=== PATIENT | male | born 1955 | race Caucasian/White ===

== ENCOUNTER 2020-09-19 12:46 | Outpatient (REF) | payer MEDICARE, MEDICAID, SELFPAY | END 2020-09-19 12:47 | disposition home or self-care (01) | LOC: HO.LAB 12:46 | PROVIDERS: Visit Provider Internal Medicine | DX: Z20.828 Contact with and (suspected) exposure to other viral communicable diseases (principal) | CPT/HCPCS: U0003 ==

== ENCOUNTER 2020-09-25 09:55 | Outpatient (REF) | payer MEDICARE, MEDICAID, SELFPAY | END 2020-09-25 09:56 | disposition home or self-care (01) | LOC: HO.LAB 09:55 | PROVIDERS: Visit Provider Internal Medicine | DX: Z20.828 Contact with and (suspected) exposure to other viral communicable diseases (principal) | CPT/HCPCS: C9803; U0003 ==

== ENCOUNTER 2020-10-08 14:48 | Outpatient (REF) | payer MEDICARE, MEDICAID, SELFPAY | END 2020-10-08 14:49 | disposition home or self-care (01) | LOC: HO.LAB 14:48 | PROVIDERS: PCP Internal Medicine; Visit Provider Internal Medicine | DX: Z20.828 Contact with and (suspected) exposure to other viral communicable diseases (principal) | CPT/HCPCS: C9803; U0003 ==

== ENCOUNTER 2020-10-13 14:34 | Outpatient (REF) | payer MEDICARE, MEDICAID, SELFPAY ==
[2020-10-13 16:01] LABS: MANUAL DIFF FLAG NO
[2020-10-13 16:07] LABS: Basophils Absolute Auto 0.1 X10*3/uL (0.0-0.2); Basophils Percent Auto 0.8 % (0-2); Eosinophils Absolute Auto 0.2 X10*3/uL (0.0-0.4); Eosinophils Percent Auto 2.7 % (0-4); Hematocrit 27.2 % (42-52); Hemoglobin 7.6 g/dl (14.0-18.0); Imm Gran Abs Auto 0.02 X10*3/uL (0.00-0.03); Imm Gran Pct Auto 0.3 % (0.0-0.4); Lymphocytes Absolute Auto 2.1 X10*3/uL (1.2-4.9); Lymphocytes Percent Auto 27.7 % (20-40); Mean Corpuscular HGB Conc 27.9 g/dl (31.0-36.0); Mean Corpuscular Volume 78.6 fL (80-98); Monocytes Absolute Auto 0.7 X10*3/uL (0.1-1.2); Monocytes Percent Auto 9.4 % (2-11); Neutrophils Absolute Auto 4.5 X10*3/uL (2.0-8.3); Neutrophils Percent Auto 59.1 % (45-73); Platelet Count 394 X10*3/uL (160-400); Red Blood Count 3.46 X10*6/uL (4.60-5.80); Red Cell Distribution Width 17.2 % (11.0-16.0); White Blood Count 7.7 X10*3/uL (4.8-10.8)
== END 2020-10-13 14:35 | disposition home or self-care (01) ==
LOC: HO.LAB 14:34
PROVIDERS: PCP Internal Medicine; Visit Provider Physician Assistant
DX: D64.9 Anemia, unspecified (principal)
CPT/HCPCS: 36415; 85025

== ENCOUNTER 2020-10-23 16:21 | Outpatient (REF) | payer MEDICARE, MEDICAID, SELFPAY | END 2020-10-23 16:22 | disposition home or self-care (01) | LOC: HO.LAB 16:21 | PROVIDERS: Visit Provider Internal Medicine | DX: Z20.828 Contact with and (suspected) exposure to other viral communicable diseases (principal) | CPT/HCPCS: C9803; U0003 ==

== ENCOUNTER 2020-10-31 08:50 | Outpatient (REF) | payer MEDICARE, MEDICAID, SELFPAY ==
[2020-10-31 09:53] LABS: Basophils Absolute Auto 0.1 X10*3/uL (0.0-0.2); Basophils Percent Auto 0.8 % (0-2); Eosinophils Absolute Auto 0.2 X10*3/uL (0.0-0.4); Hemoglobin 8.2 g/dl (14.0-18.0); MANUAL DIFF FLAG SCAN; Mean Corpuscular Hemoglobin 21.6 pg (27.0-33.0); Red Cell Distribution Width 16.7 % (11.0-16.0); SCAN SMEAR FLAG 1
[2020-10-31 09:56] LABS: Eosinophils Percent Auto 2.3 % (0-4); Hematocrit 29.1 % (42-52); Imm Gran Abs Auto 0.02 X10*3/uL (0.00-0.03); Imm Gran Pct Auto 0.3 % (0.0-0.4); Lymphocytes Absolute Auto 1.8 X10*3/uL (1.2-4.9); Lymphocytes Percent Auto 28.6 % (20-40); Mean Corpuscular HGB Conc 28.2 g/dl (31.0-36.0); Mean Corpuscular Volume 76.6 fL (80-98); Monocytes Absolute Auto 0.7 X10*3/uL (0.1-1.2); Monocytes Percent Auto 10.9 % (2-11); Neutrophils Absolute Auto 3.7 X10*3/uL (2.0-8.3); Neutrophils Percent Auto 57.1 % (45-73); PLT CLUMP 1
[2020-10-31 10:20] LABS: PLT ABN DIST 1
[2020-10-31 10:21] LABS: White Blood Count 6.4 X10*3/uL (4.8-10.8)
[2020-10-31 10:22] LABS: Alanine Aminotransferase 6 U/L (0-40); Aspartate Amino Transferase 13 U/L (5-37); Blood Urea Nitrogen 11 mg/dL (9-16); Estimated Glomerular Filt Rate > 60; Iron 18 mcg/dL (45-160); Lactate Dehydrogenase 130 U/L (118-273); Percent Iron Saturation 4 % (15-50); Platelet Count 180 X10*3/uL (160-400); SLIDE REVIEW VERIFIED; Total Iron Binding Capacity 491 mcg/dL (228-428); Unsaturated Iron Binding 473 ug/dL
== END 2020-10-31 08:51 | disposition home or self-care (01) ==
LOC: HO.LAB 08:50
PROVIDERS: PCP Internal Medicine; Visit Provider Internal Medicine
DX: D64.9 Anemia, unspecified (principal)
CPT/HCPCS: 36415; 82565; 83540; 83615; 84450; 84460; 84520; 85025

== ENCOUNTER → 2020-11-05 11:54 | Outpatient (BNVA) | payer MEDICARE, MEDICAID, SELFPAY | PROVIDERS: Visit Provider Physician Assistant | DX: Z13.89 Encounter for screening for other disorder (principal) | CPT/HCPCS: Q3014 ==

== ENCOUNTER → 2020-12-01 08:02 | Outpatient (BNVA) | payer MEDICARE, MEDICAID, SELFPAY | PROVIDERS: PCP Internal Medicine; Visit Provider Internal Medicine Gastroenterology | DX: D50.9 Iron deficiency anemia, unspecified (principal) | CPT/HCPCS: 91110 ==

== ENCOUNTER 2020-12-03 16:20 | Outpatient (REF) | payer MEDICARE, MEDICAID, SELFPAY | END 2020-12-03 16:21 | disposition home or self-care (01) | LOC: HO.LAB 16:20 | PROVIDERS: Visit Provider Internal Medicine | DX: Z20.822 Contact with and (suspected) exposure to COVID-19 (principal) | CPT/HCPCS: 36415; C9803; U0003 ==

== ENCOUNTER → 2020-12-10 11:58 | Outpatient (BNVA) | payer MEDICARE, MEDICAID, SELFPAY | PROVIDERS: PCP Internal Medicine; Visit Provider Physician Assistant | DX: D64.9 Anemia, unspecified (principal); K21.9 Gastro-esophageal reflux disease without esophagitis | CPT/HCPCS: Q3014 ==

== ENCOUNTER → 2020-12-15 09:00 | Outpatient (BNVA) | payer MEDICARE, MEDICAID, SELFPAY | PROVIDERS: Visit Provider Urology | DX: N50.811 Right testicular pain (principal); N50.812 Left testicular pain | CPT/HCPCS: 51798; 81002; 99212 ==

== ENCOUNTER 2020-12-23 12:49 | Outpatient (REF) | payer MEDICARE, MEDICAID, SELFPAY ==
--- NOTE | 2020-12-23 12:51 | US_ITS ---
EXAMINATION: US SCROTUM CLINICAL INFORMATION: Pain. COMPARISON: None TECHNIQUE: A sonogram of the scrotum was performed assessing larry-scale appearance and color Doppler flow. Spectral Doppler analysis of the arterial and venous flow were performed in the testes bilaterally. FINDINGS: RIGHT: Right testicle measures 3.8 x 1.7 x 2.8 cm, volume 9.4 mL. No focal testicular parenchymal lesions are visualized. Spectral Doppler analysis of the arterial and venous flow is normal in the right testis. Right epididymal head is normal in size. There are multiple right epididymal cysts, largest measuring 9 x 6 x 9 mm No right hydrocele or varicocele is seen. Right epididymal Doppler flow is normal. LEFT: Left testicle measures 3.8 x 1.9 x 2.8 cm, volume 10.4 mL. No focal testicular parenchymal lesions are visualized. Spectral Doppler analysis of the arterial and venous flow is normal in the left testis. Left epididymal head is normal in size. There are multiple left epididymal cysts, largest measuring 5 x 3 x 4 mm. No left hydrocele or varicocele is seen. Left epididymal Doppler flow is normal. US/US scrotum IMPRESSION: Bilateral small epididymal cysts.
== END 2020-12-23 12:50 | disposition home or self-care (01) ==
LOC: HO.US 12:49
PROVIDERS: PCP Internal Medicine; Visit Provider Urology
DX: N50.819 Testicular pain, unspecified (principal)
CPT/HCPCS: 76870

== ENCOUNTER 2020-12-25 10:58 | Outpatient (REF) | payer MEDICARE, MEDICAID, SELFPAY | END 2020-12-25 10:59 | disposition home or self-care (01) | LOC: HO.MDS 10:58 | PROVIDERS: PCP Internal Medicine; Visit Provider Internal Medicine Medical Oncology | DX: D50.9 Iron deficiency anemia, unspecified (principal) | CPT/HCPCS: 96365; J2916 ==

== ENCOUNTER 2020-12-30 11:29 | Outpatient (REF) | payer MEDICARE, MEDICAID, SELFPAY | END 2020-12-30 11:30 | disposition home or self-care (01) | LOC: HO.MDS 11:29 | PROVIDERS: PCP Internal Medicine; Visit Provider Internal Medicine Medical Oncology | DX: D50.9 Iron deficiency anemia, unspecified (principal) | CPT/HCPCS: 96365; J2916 ==

== ENCOUNTER 2021-01-01 12:45 | Day surgery (SDC) | payer MEDICARE, MEDICAID, SELFPAY ==
[2020-12-26 14:01] VITALS: BMI 30.7
--- NOTE | 2020-12-31 08:49 | HO.ANESPROP2 ---
Documented by User: Pinky Torres 12/31/20 08:49 HPI - Anesthesia Eval Consult details Narrative: 65yo M for Colonoscopy with APC PMFSH Active Problems Active Problems: All Active Problems (Updated 12/26/20 @ 13:58 by Shanta Rios) Microcytic hypochromic anemia (Acute) Orchalgia (Acute) Anemia (Acute) Post-op pain (Acute) Smoker (Acute) Insomnia (Acute) GERD (gastroesophageal reflux disease) (Acute) Diverticulosis (Acute) Anxiety (Acute) Past Medical History Medical History Anemia Anxiety Diverticulosis GERD (gastroesophageal reflux disease) Hx of hepatitis C Insomnia Orchalgia Post-op pain Smoker Family History Family History Father Prostate cancer Mother Colon cancer Brother Prostate cancer Family/Other FH: mental illness Sister Chronic mental illness Surgical History Surgical History H/O hand surgery History of back surgery History of esophagogastroduodenoscopy (EGD) History of mandibular surgery History of repair of laceration History of sinus surgery Hx of colonoscopy Social History Social History Alcohol intake: former Smoking Status: Current every day smoker Tobacco Type: Cigarette Cigarettes Per Day: 2 Years Smoked: 15 Use of substances other than those prescribed or required for medical reasons: No Advance Directives: No Advance Directives Information Provided: No Advance Directives on File: No Meds Allergies Allergy/AdvReac Type Severity Reaction Status Date / Time codeine [CODEINE] Allergy Intermediate nausea Verified 12/26/20 13:59 trazodone [TRAZODONE] Allergy Intermediate SHORTNESS Verified 12/26/20 14:00 OF BREATH lactose [LACTOSE] AdvReac Intermediate upset Verified 12/26/20 14:00 stomach Home Medications Medication Instructions Recorded Confirmed Last Taken Type omeprazole 20 mg capsule,delayed 40 mg PO DAILY cap 09/01/20 12/26/20 Unknown History release Exam Exam Date and Time: December 31, 2020 0849 Height,Weight and Vital Signs: Height 5 ft 6 in Weight 86.183 kg Assessment and Plan Assessment Anesthesia Assessment: Chart Reviewed Documented by User: Julio Vicente 01/01/21 12:54 PMFSH Past Medical History Medical History Anemia Anxiety Diverticulosis GERD (gastroesophageal reflux disease) Hx of hepatitis C Insomnia Orchalgia Post-op pain Smoker Family History Family History Father Prostate cancer Mother Colon cancer Brother Prostate cancer Family/Other FH: mental illness Sister Chronic mental illness Surgical History Surgical History H/O hand surgery History of back surgery History of esophagogastroduodenoscopy (EGD) History of mandibular surgery History of repair of laceration History of sinus surgery Hx of colonoscopy Social History Social History Alcohol intake: former Smoking Status: Current every day smoker Tobacco Type: Cigarette Cigarettes Per Day: 2 Years Smoked: 15 Use of substances other than those prescribed or required for medical reasons: No Advance Directives: No Advance Directives Information Provided: No Advance Directives on File: No Meds Allergies Allergy/AdvReac Type Severity Reaction Status Date / Time codeine [CODEINE] Allergy Intermediate nausea Verified 12/26/20 13:59 trazodone [TRAZODONE] Allergy Intermediate SHORTNESS Verified 12/26/20 14:00 OF BREATH lactose [LACTOSE] AdvReac Intermediate upset Verified 12/26/20 14:00 stomach Home Medications Medication Instructions Recorded Confirmed Last Taken Type omeprazole 20 mg capsule,delayed 40 mg PO DAILY cap 09/01/20 12/26/20 Unknown History release Exam Airway Mallampati Class: II TM Dist: >3cm Neck ROM: Full
[2021-01-01 12:55] VITALS: BP 145/85; PULSE 94; RESP 18; TEMP 37.2; O2SAT 96
--- NOTE | 2021-01-01 13:09 | MHC.SHP ---
Pre-Procedural Eval Section B Chief Complaint: anemia Details of Present Illness: avm on capsule Relevant Family History (Specify if Yes): No Relevant Social History: Tobacco Use Present Medications: see Short Stay Collaborative assessment Medical History: Significant History (Anemia Anxiety Diverticulosis GERD (gastroesophageal reflux disease) Hx of hepatitis C Insomnia Orchalgia Post-op pain Smoker) History of Previous Operations: Relevant previous surgery/procedure and date(s) (H/O hand surgery History of back surgery History of esophagogastroduodenoscopy (EGD) History of mandibular surgery History of repair of laceration History of sinus surgery Hx of colonoscopy) Allergies: Allergies Allergy/AdvReac Type Severity Reaction Status Date / Time codeine [CODEINE] Allergy Intermediate nausea Verified 12/26/20 13:59 trazodone [TRAZODONE] Allergy Intermediate SHORTNESS Verified 12/26/20 14:00 OF BREATH lactose [LACTOSE] AdvReac Intermediate upset Verified 12/26/20 14:00 stomach Review of Systems Sugical H&P ROS: Negative: Constitution, Cardiovascular, Respiratory, Neurological, Psychiatric, Hem-Onc, Allergic/Immunologic, Gastrointestinal, Genitourinary, Musculoskeletal, Integumentary, Endocrine and Eyes/Ears/Nose/Throat Exam Surgical H&P Exam: Normal: HEENT, Normal: Heart, Normal: Lungs, Normal: Extremities, Normal: Abdomen, Normal: Skin and Normal: Neurological Plan Diagnosis/Plan: Unchanged I have reviewed the history and physical and performed a pertinent physical examination on my patient. No changes have occurred unless specified.
[2021-01-01] MEDS: Lactated Ringers 1,000 ML 100 ML IVCONT (13:22)
--- NOTE | 2021-01-01 13:28 | PM.OP ---
Brief Operative Note Date of Service: 01/01/21 Pre-op diagnosis: avm, anemia Post-op diagnosis: same Procedure: see op note Surgeon: Harjeet Nguyen MD Anesthesia: MAC Estimated blood loss (mL): 0 Condition: stable Disposition: PACU
--- NOTE | 2021-01-01 14:05 | P.OP_ITS ---
Operative Note Operative Note Date of Service: 01/01/21 Narrative: Operative Information Procedure Description: Colonoscopy c/o LLQ pain and hx of anemia COLONOSCOPY Instrument: Olympus variable stiffness pediatric scope 190L Colonoscopy Monitoring: Vital signs and clinical assessment, continuous EKG monitoring, Pulse oximetry, Carbon Dioxide monitoring and blood pressure monitoring were done throughout the procedure. Colon withdrawal time was 15 minutes. Procedure: The patient was placed in the left lateral decubitis position and pre-procedure medications were administered. After a digital rectal examination of the ano-rectum, the video colonoscope was inserted into the rectum and advanced through the colon to the cecum/TI. The colonoscope was slowly withdrawn in a retrograde panoramic fashion and the colon mucosa was carefully examined including a retroflexed view of the rectum. Findings and interventions are described below. Procedure Difficulty: easy Findings: Pigmented mucosa, consistent with melanosis coli, random bx taken of colon Terminal Ileum-normal, bx taken Cecum:normal Ascending Colon: normal, AVM seen on prior capsule endoscopy study noted, measured about 9-10 mm, bled when irritated, it was successfully ablated using straight fire APC Transverse Colon -8-10 mm sessile polyp removed wt snare Descending Colon:normal Sigmoid Colon: moderate diverticulosis with tics of varying sizes Rectum: Retroflexion with small sized internal hemorrhoids, grade I Anorectum - normal Colon preparation: [address] Bowel Preparation Scale Right colon; 2 Transverse colon: 2 Left colon; 2 (0 = Unprepared colon segment with mucosa not seen due to solid stool that cannot be cleared. 1 = Portion of mucosa of the colon segment seen, but other areas of the colon segment not well seen due to staining, residual stool and/or opaque liquid. 2 = Minor amount of residual staining, small fragments of stool and/or opaque liquid, but mucosa of colon segment seen well. 3 = Entire mucosa of colon segment seen well with no residual staining, small fragments of stool or opaque liquid) Impression and Post Procedure Diagnosis: polyps internal hemorrhoids diverticular disease AVM melanosis coli Plan: High fiber diet leaflet Avoid straining at stool, epsom salts and sitz bath, anusol supps or cream Repeat Colonoscopy in 3-5 years or earlier if clinically indicated confirm if taking sennosides or not if pain persists then CT scan, maybe GES due to some early satiety, for the moment try the high fiber diet with plenty of fluids during the day time Above findings were reviewed with the patient and relevant handouts were provided if indicated.
[2021-01-01 14:15] VITALS: BP 104/59; PULSE 80; RESP 20; TEMP 37; O2SAT 98
[2021-01-01 14:30] VITALS: BP 134/74; PULSE 97; RESP 20; TEMP 37; O2SAT 96
--- NOTE | 2021-01-01 17:40 | HO.POSTANES ---
Post Anesthesia Evaluation Post Anesthesia Evaluation Vital Signs: Vital Signs Temp Pulse Resp BP Pulse Ox 01/01/21 14:30 98.6 F 97 20 134/74 96 01/01/21 14:15 98.6 F 80 20 104/59 L 98 01/01/21 12:55 99.0 F 94 18 145/85 H 96 Anesthesia: Monitored Mental Status: Awake Pain Control: Satisfactory Nausea/Vomiting: None Hydration: Adequate Anesthesia-Related Issues: No Anes. Related Issues
== END 2021-01-01 15:00 | disposition home or self-care (01) ==
PROVIDERS: PCP Internal Medicine; Visit Provider Internal Medicine Gastroenterology
PROC: 0DJD8ZZ Inspection of Lower Intestinal Tract, Via Natural or Artificial Opening Endoscopic (ICD-10-PCS; CPT 45378; principal; 2021-01-01 13:50)
DX: D64.9 Anemia, unspecified (principal); Z86.010 Personal history of colon polyps; D12.3 Benign neoplasm of transverse colon; K55.20 Angiodysplasia of colon without hemorrhage; K57.30 Diverticulosis of large intestine without perforation or abscess without bleeding; K64.0 First degree hemorrhoids; K63.89 Other specified diseases of intestine; K21.9 Gastro-esophageal reflux disease without esophagitis; Z79.899 Other long term (current) drug therapy; Z86.19 Personal history of other infectious and parasitic diseases; F17.210 Nicotine dependence, cigarettes, uncomplicated
CPT/HCPCS: 45385; 45380; 88305

== ENCOUNTER → 2021-01-02 13:12 | Outpatient (BNVA) | payer MEDICARE, MEDICAID, SELFPAY | PROVIDERS: Visit Provider Urology | CPT/HCPCS: Q3014 ==

== ENCOUNTER 2021-01-09 10:09 | Outpatient (REF) | payer MEDICARE, MEDICAID, SELFPAY | END 2021-01-09 10:10 | disposition home or self-care (01) | LOC: HO.MDS 10:09 | PROVIDERS: PCP Internal Medicine; Visit Provider Internal Medicine Medical Oncology | DX: D50.9 Iron deficiency anemia, unspecified (principal) | CPT/HCPCS: 96365; J2916 ==

== ENCOUNTER 2021-01-14 11:23 | Outpatient (REF) | payer MEDICARE, MEDICAID, SELFPAY ==
--- NOTE | ~2021-01-14 | CT_ITS ---
EXAMINATION: CT ABDOMEN AND PELVIS WITH CONTRAST CLINICAL INFORMATION: Iron deficiency anemia COMPARISON: None TECHNIQUE: Multidetector volumetric images were obtained from the superior aspect of the liver through the pubic symphysis following administration 85 mL of Omnipaque 350 intravenous contrast. Sagittal and coronal reformatted images were obtained on the technologist's workstation. Oral contrast: Yes This CT examination was performed using dose optimization techniques as appropriate, variously including the following: *Automated exposure control *Adjustment of mA and/or kV according to patient size (this includes techniques or standardized protocols for targeted exams where dose is matched to indication/reason for exam; i.e. extremities or head) *Use of iterative reconstruction technique DLP: 418 mGy-cm FINDINGS: LUNG BASES: The visualized lung bases are unremarkable. LIVER, GALLBLADDER, AND BILIARY TREE: The liver is normal in size, shape, and attenuation. No focal hepatic lesion or biliary ductal dilatation is present. The gallbladder is unremarkable with no evidence of radiopaque gallstones, gallbladder wall thickening, or obvious pericholecystic inflammatory changes. PANCREAS: Unremarkable. SPLEEN: Unremarkable. ADRENAL GLANDS: Unremarkable. KIDNEYS AND URETERS: The kidneys are normal in size, shape, and attenuation. No hydronephrosis, hydroureter, or calculi seen. There is a small cyst in the medial upper pole of the right kidney measuring 5 mm. No perinephric stranding. BLADDER: Unremarkable. GASTROINTESTINAL TRACT: There is diverticulosis of the colon. Small and large bowel is otherwise unremarkable. There is a large esophageal hernia. There is question of wall thickening versus underdistention of the proximal stomach. ABDOMINAL WALL: No significant hernia is appreciated. LYMPH NODES: Normal. VASCULAR: There is evidence of atherosclerotic disease. No aneurysm is seen. PELVIC VISCERA: Unremarkable. OSSEOUS STRUCTURES: There is postsurgical change in the lower lumbar spine with posterior fusion hardware in disc interspace. There is degenerative disc disease of the upper lumbar spine. CT/CT abdomen pelvis w con IMPRESSION: Diverticulosis of the colon. Large esophageal hernia. Question wall thickening versus underdistention of the proximal stomach.
[2021-01-14 12:16] LABS: Blood Urea Nitrogen 9 mg/dL (9-16); Estimated Glomerular Filt Rate > 60
[2021-01-14] MEDS: iohexoL 350 MG/ML 100 ML INFUS..BTL 85 ML IV (14:24)
[2021-01-14] MEDS: Barium Sulfate Oral (Mocha) 450 ML ORAL.SUSP 900 ML PO (14:25)
== END 2021-01-14 11:24 | disposition home or self-care (01) ==
LOC: HO.CT 11:23
PROVIDERS: Visit Provider Internal Medicine Gastroenterology
DX: D50.9 Iron deficiency anemia, unspecified (principal)
CPT/HCPCS: 36415; 74177; 82565; 84520; Q9967

== ENCOUNTER 2021-01-16 12:49 | Outpatient (REF) | payer MEDICARE, MEDICAID, SELFPAY | END 2021-01-16 12:50 | disposition home or self-care (01) | LOC: HO.MDS 12:49 | PROVIDERS: PCP Internal Medicine; Visit Provider Internal Medicine Medical Oncology | DX: D50.9 Iron deficiency anemia, unspecified (principal) | CPT/HCPCS: 96365 ==

== ENCOUNTER 2021-01-20 10:44 | Outpatient (REF) | payer MEDICARE, MEDICAID, SELFPAY | END 2021-01-20 10:45 | disposition home or self-care (01) | LOC: HO.MDS 10:44 | PROVIDERS: PCP Internal Medicine; Visit Provider Internal Medicine Medical Oncology | DX: D50.9 Iron deficiency anemia, unspecified (principal) | CPT/HCPCS: 96365; J2916 ==

== ENCOUNTER 2021-01-27 11:11 | Outpatient (REF) | payer MEDICARE, MEDICAID, SELFPAY ==
[2021-01-27 13:13] LABS: Hematocrit 37.3 % (42-52); Hemoglobin 10.9 g/dl (14.0-18.0); Mean Corpuscular HGB Conc 29.2 g/dl (31.0-36.0); Mean Corpuscular Hemoglobin 23.8 pg (27.0-33.0); Mean Corpuscular Volume 81.4 fL (80-98); Platelet Count 169 X10*3/uL (160-400); Red Blood Count 4.58 X10*6/uL (4.60-5.80); Red Cell Distribution Width 23.9 % (11.0-16.0); White Blood Count 5.6 X10*3/uL (4.8-10.8)
[2021-01-27 13:56] LABS: Alanine Aminotransferase 16 U/L (0-40); Albumin Level 4.4 g/dL (3.5-5.0); Alkaline Phosphatase 56 U/L (39-117); Aspartate Amino Transferase 21 U/L (5-37); Bilirubin Total 0.3 mg/dL (0.0-1.0); Blood Urea Nitrogen 9 mg/dL (9-16); Calcium 9.1 mg/dL (8.4-10.2); Estimated Glomerular Filt Rate > 60; Glucose Random 79 mg/dL (60-115)
[2021-01-27 14:07] LABS: Anion Gap 11 (12-20); Carbon Dioxide 27 mmol/L (22-29); Chloride 107 mmol/L (96-108); Potassium 4.1 mmol/L (3.3-5.1); Sodium 141 mmol/L (135-145)
[2021-01-27 14:20] LABS: Prostate Specific Antigen Scr 0.16 ng/mL (<0.05-4.0)
[2021-01-27 14:34] LABS: Ferritin 49 ng/mL (20-250)
== END 2021-01-27 11:12 | disposition home or self-care (01) ==
LOC: HO.MDS 11:11
PROVIDERS: PCP Internal Medicine; Visit Provider Internal Medicine Medical Oncology
DX: D50.9 Iron deficiency anemia, unspecified (principal)
CPT/HCPCS: 36415; 80053; 82728; 84153; 85027; 96365; J2916

== ENCOUNTER 2021-02-03 11:27 | Outpatient (REF) | payer MEDICARE, MEDICAID, SELFPAY | END 2021-02-03 11:28 | disposition home or self-care (01) | LOC: HO.MDS 11:27 | PROVIDERS: PCP Internal Medicine; Visit Provider Internal Medicine Medical Oncology | DX: D50.9 Iron deficiency anemia, unspecified (principal) | CPT/HCPCS: 96365; J2916 ==

== ENCOUNTER 2021-02-10 10:44 | Outpatient (REF) | payer MEDICARE, MEDICAID, SELFPAY | END 2021-02-10 10:45 | disposition home or self-care (01) | LOC: HO.MDS 10:44 | PROVIDERS: PCP Internal Medicine; Visit Provider Internal Medicine Medical Oncology | DX: D50.9 Iron deficiency anemia, unspecified (principal) | CPT/HCPCS: 96365; J2916 ==

== ENCOUNTER → 2021-02-11 13:28 | Outpatient (BNVA) | payer MEDICARE, MEDICAID, SELFPAY | PROVIDERS: Visit Provider Urology | DX: N50.3 Cyst of epididymis (principal) | CPT/HCPCS: 99212 ==

== ENCOUNTER 2021-02-23 08:32 | Day surgery (SDC) | payer MEDICARE, MEDICAID, SELFPAY ==
--- NOTE | 2021-02-20 11:37 | HO.ANESPROP2 ---
Documented by User: Pinky Torres 02/20/21 11:39 HPI - Anesthesia Eval Consult details Narrative: 65yo M for Excision of Penile Cyst PMFSH Active Problems Active Problems: All Active Problems (Updated 02/11/21 @ 14:17 by Zach Perez MD) Microcytic hypochromic anemia (Acute) Epididymal cyst (Acute) Esophageal hernia (Acute) Orchalgia (Acute) Anemia (Acute) Post-op pain (Acute) Smoker (Acute) Insomnia (Acute) GERD (gastroesophageal reflux disease) (Acute) Diverticulosis (Acute) Anxiety (Acute) Past Medical History Medical History Anemia Anxiety Diverticulosis Esophageal hernia GERD (gastroesophageal reflux disease) Hx of hepatitis C Insomnia Orchalgia Post-op pain Smoker Family History Family History Father Prostate cancer Mother Colon cancer Brother Prostate cancer Family/Other FH: mental illness Sister Chronic mental illness Surgical History Surgical History H/O hand surgery History of back surgery History of esophagogastroduodenoscopy (EGD) History of mandibular surgery History of repair of laceration History of sinus surgery Hx of colonoscopy Social History Social History Alcohol intake: former Smoking Status: Current every day smoker Tobacco Type: Cigarette Cigarettes Per Day: 1 Years Smoked: 15 Use of substances other than those prescribed or required for medical reasons: No Advance Directives: No Advance Directives Information Provided: Yes Meds Allergies Allergy/AdvReac Type Severity Reaction Status Date / Time codeine [CODEINE] Allergy Intermediate nausea Verified 02/23/21 09:10 trazodone [TRAZODONE] Allergy Intermediate SHORTNESS Verified 02/23/21 09:10 OF BREATH lactose [LACTOSE] AdvReac Intermediate upset Verified 02/23/21 09:10 stomach Home Medications Medication Instructions Recorded Confirmed Last Taken Type omeprazole 20 mg capsule,delayed 40 mg PO DAILY cap 09/01/20 02/17/21 Unknown History release baclofen 20 mg tablet mg PO 02/11/21 Unknown History gabapentin 600 mg tablet 600 mg PO TID 02/11/21 02/17/21 Unknown History mirtazapine 30 mg tablet 30 mg PO BEDTIME 02/11/21 02/17/21 Unknown History Exam Exam Date and Time: February 20, 2021 1137 Pertinent Lab Results Pertinent Lab Results: Laboratory Tests 01/27/21 01/27/21 13:02 13:02 WBC 5.6 Hgb 10.9 L D Hct 37.3 L D Plt Count 169 Sodium 141 Potassium 4.1 Chloride 107 Carbon Dioxide 27 BUN 9 Creatinine 0.80 Assessment and Plan Assessment Anesthesia Assessment: Chart Reviewed Documented by User: Chayito Lerner 02/23/21 11:23 PMFSH Past Medical History Medical History Anemia Anxiety Diverticulosis Esophageal hernia GERD (gastroesophageal reflux disease) Hx of hepatitis C Insomnia Orchalgia Post-op pain Smoker Family History Family History Father Prostate cancer Mother Colon cancer Brother Prostate cancer Family/Other FH: mental illness Sister Chronic mental illness Surgical History Surgical History H/O hand surgery History of back surgery History of esophagogastroduodenoscopy (EGD) History of mandibular surgery History of repair of laceration History of sinus surgery Hx of colonoscopy Social History Social History Alcohol intake: former Smoking Status: Current every day smoker Tobacco Type: Cigarette Cigarettes Per Day: 1 Years Smoked: 15 Use of substances other than those prescribed or required for medical reasons: No Advance Directives: No Advance Directives Information Provided: Yes Meds Allergies Allergy/AdvReac Type Severity Reaction Status Date / Time codeine [CODEINE] Allergy Intermediate nausea Verified 02/23/21 09:10 trazodone [TRAZODONE] Allergy Intermediate SHORTNESS Verified 02/23/21 09:10 OF BREATH lactose [LACTOSE] AdvReac Intermediate upset Verified 02/23/21 09:10 stomach Home Medications Medication Instructions Recorded Confirmed Last Taken Type omeprazole 20 mg capsule,delayed 40 mg PO DAILY cap 09/01/20 02/17/21 Unknown History release baclofen 20 mg tablet mg PO 02/11/21 Unknown History gabapentin 600 mg tablet 600 mg PO TID 02/11/21 02/17/21 Unknown History mirtazapine 30 mg tablet 30 mg PO BEDTIME 02/11/21 02/17/21 Unknown History Exam Airway Mallampati Class: II TM Dist: >3cm Neck ROM: Full Assessment and Plan Assessment Anesthesia Assessment: Anesthesia Plan Discussed and Chart Reviewed Final Anesthetic Review NPO: Yes ASA Class: II Final Preanesthetic Review: No Changes in Pt Med Stat, Meds/Allgs Chart Reviewed, Consent Obtained/Reviewed and Anes Risks/Benef Reviewed Patient Risk: Low Procedure Risk: Low Assessment/Block/Sedation in SS: Assess/Block/Sedation-SS Anesthetic Plan Anesthetic Plan: GA Disposition: Standard PACU
[2021-02-23] VITALS (8 sets, daily range): BP systolic 132–184; BP diastolic 75–97; PULSE 64–91; RESP 16–18; TEMP 36.6–36.9; O2SAT 95–98; BMI 29.8
[2021-02-23] MEDS: Lactated Ringers 1,000 ML 100 ML IVCONT (09:52)
[2021-02-23] MEDS: levoFLOXacin 500 MG TABLET PO (10:24)
--- NOTE | 2021-02-23 10:25 | MHC.SHP ---
Pre-Procedural Eval Section A The patient is an INPATIENT: No Changes since office visit: No Cold of Flu in the past 2 weeks, No New Medical Problems, No Changes in Medication and No Patient answered all questions The History & Physical has been completed within 30 days and I have reviewed it.: Yes Section B Chief Complaint: cyst Allergies: Allergies Allergy/AdvReac Type Severity Reaction Status Date / Time codeine [CODEINE] Allergy Intermediate nausea Verified 02/23/21 09:10 trazodone [TRAZODONE] Allergy Intermediate SHORTNESS Verified 02/23/21 09:10 OF BREATH lactose [LACTOSE] AdvReac Intermediate upset Verified 02/23/21 09:10 stomach Plan Diagnosis/Plan: Unchanged (Excision of right epididymal cyst) I have reviewed the history and physical and performed a pertinent physical examination on my patient. No changes have occurred unless specified.
--- NOTE | 2021-02-23 10:25 | PC.NURSE ---
pt has lactose allergy states bloating when drinks reg. milk now uses almond milk mostly... per Lonnie the pharmacist states there is a lactose basket filler levaquin states with a bloating isssue he should be ok to take this one dose at this time but need to review with Dr Perez. informed Dr Perez of issue, ok to give the dose of levaquin at this time. pt informed of lactose basket filler levaguin and medication given.
--- NOTE | 2021-02-23 12:11 | W.PM.OPN ---
Operative Note Operative Note Date of Service: 02/23/21 Narrative: PreOperative Diagnosis: Right epididymal cyst Post Operative Diagnosis: Right epididymal cyst Procedure: Excision right epididymal cyst Surgeon: Dr Zach Perez Anesthesia: General Indications for procedure: Right epididymal cyst with persistent pain. Discussed cyst removal. Is aware that removal cyst may not resolve pain on testicle. Procedure: After informed consent was verified the patient was brought to the operating room and placed in a supine position. Anesthesia was administered per protocol. The patient was prepped and draped in a sterile fashion. Safety pause time-out performed. Antibiotics have been given. Local anesthetic was used to infiltrate all horizontal aspect of the right testicle. Sharp blade was used to make a 2 cm incision. This was dissected and taken down to the testicle. The testicle was delivered through the incision. The tunica was opened. The testicle and epididymis was delivered. A 1 cm epididymal cyst was present in the here with epididymis. Using the Bovie with the fine needle and sharp dissection with tenotomies cyst was freed from its surrounding fascia. The testicle on epididymal size were then cauterized for control of any bleeding. The epididymis was refill acid onto the testicle using a running 3-0 Vicryl suture with locking ties. The testicle was placed back within the tunica. This was closed with a running 3-0 Vicryl. The packet was then placed back into the scrotum. The overlying tissue was closed with a running 3-0 Vicryl. The skin was closed with interrupted 4-0 Monocryls. He tolerated procedure well was extubated in the operating room transferred in stable condition to the recovery area Pathology: Epididymal cyst Drains: None
[2021-02-23] MEDS: oxyCODONE HCl Immed Release 5 MG TABLET PO (12:15)
[2021-02-23] MEDS: Acetaminophen 325 MG TABLET 650 MG PO (12:16)
[2021-02-23] MEDS: fentaNYL citrate/PF 100 MCG/2 ML VIAL 25 MCG IVPUSH ×2 (12:51→13:27)
== END 2021-02-23 14:46 | disposition home or self-care (01) ==
PROVIDERS: PCP Internal Medicine; Visit Provider Urology
PROC: (CPT 54830; principal; 2021-02-23 11:50)
DX: N50.3 Cyst of epididymis (principal); N50.811 Right testicular pain; Z79.899 Other long term (current) drug therapy; Z88.8 Allergy status to other drugs, medicaments and biological substances; F17.210 Nicotine dependence, cigarettes, uncomplicated
CPT/HCPCS: 54830; 88304; J2405; J3010

== ENCOUNTER 2021-04-03 14:30 | Outpatient (REF) | payer MEDICARE, MEDICAID, SELFPAY ==
--- NOTE | ~2021-04-03 | XR_ITS ---
EXAMINATION: XR HIP, LEFT CLINICAL INFORMATION: Pain left hip COMPARISON: None TECHNIQUE: Two views of the left hip. FINDINGS: The left hip joint space is maintained normal. No visible acute fracture, dislocation or subluxation seen. XR/XR hip LT min 2V IMPRESSION: Unremarkable left hip exam.
== END 2021-04-03 14:31 | disposition home or self-care (01) ==
LOC: HO.XRAY 14:30
PROVIDERS: Absent Provider Internal Medicine; PCP Internal Medicine; Visit Provider Urology
DX: M25.552 Pain in left hip (principal); N52.01 Erectile dysfunction due to arterial insufficiency
CPT/HCPCS: 73502; 81002; 99212

== ENCOUNTER 2021-04-07 10:56 | Outpatient (REF) | payer MEDICARE, MEDICAID, SELFPAY ==
[2021-04-07 13:26] LABS: Hematocrit 40.4 % (42-52)
[2021-04-07 13:28] LABS: Basophils Percent Auto 0.7 % (0-2); Eosinophils Absolute Auto 0.1 X10*3/uL (0.0-0.4); Eosinophils Percent Auto 2.2 % (0-4); Imm Gran Abs Auto 0.01 X10*3/uL (0.00-0.03); Imm Gran Pct Auto 0.2 % (0.0-0.4); Lymphocytes Absolute Auto 1.8 X10*3/uL (1.2-4.9); Lymphocytes Percent Auto 32.5 % (20-40); Mean Corpuscular HGB Conc 32.2 g/dl (31.0-36.0); Mean Corpuscular Hemoglobin 27.9 pg (27.0-33.0); Mean Corpuscular Volume 86.7 fL (80-98); Monocytes Absolute Auto 0.6 X10*3/uL (0.1-1.2); Monocytes Percent Auto 10.6 % (2-11); Neutrophils Percent Auto 53.8 % (45-73); Platelet Count 166 X10*3/uL (160-400); Red Blood Count 4.66 X10*6/uL (4.60-5.80); Red Cell Distribution Width 16.5 % (11.0-16.0); White Blood Count 5.5 X10*3/uL (4.8-10.8)
[2021-04-07 13:58] LABS: Alanine Aminotransferase 15 U/L (0-40); Albumin Level 4.3 g/dL (3.5-5.0); Alkaline Phosphatase 61 U/L (39-117); Anion Gap 12 (12-20); Aspartate Amino Transferase 25 U/L (5-37); Bilirubin Total 0.5 mg/dL (0.0-1.0); Blood Urea Nitrogen 8 mg/dL (9-16); Calcium 9.2 mg/dL (8.4-10.2); Carbon Dioxide 28 mmol/L (22-29); Chloride 105 mmol/L (96-108); Estimated Glomerular Filt Rate > 60; Glucose Random 73 mg/dL (60-115); Potassium 4.4 mmol/L (3.3-5.1); Sodium 141 mmol/L (135-145); Total Protein 7.1 g/dL (6.5-8.0)
[2021-04-07 14:20] LABS: Ferritin 6 ng/mL (20-250)
[2021-04-07 14:25] LABS: Amphetamine Screen Urine Not Detected (Not Detect); Barbiturates, Urine Not Detected (Not Detect); Benzodiazepines Screen Urine Not Detected (Not Detect); Cannabinoid Screen Urine Not Detected (Not Detect); Cocaine Screen Urine Not Detected (Not Detect); Opiate Screen Urine Not Detected (Not Detect); Phencyclidine Screen Urine Not Detected (Not Detect)
== END 2021-04-07 10:57 | disposition home or self-care (01) ==
LOC: HO.LAB 10:56
PROVIDERS: PCP Internal Medicine; Visit Provider Internal Medicine Gastroenterology
DX: D50.9 Iron deficiency anemia, unspecified (principal); K57.90 Diverticulosis of intestine, part unspecified, without perforation or abscess without bleeding; K75.81 Nonalcoholic steatohepatitis (NASH); F17.210 Nicotine dependence, cigarettes, uncomplicated; Z88.8 Allergy status to other drugs, medicaments and biological substances; Z88.6 Allergy status to analgesic agent; Z91.011 Allergy to milk products; Z79.899 Other long term (current) drug therapy
CPT/HCPCS: 80053; 80307; 82728; 85025; 99212

== ENCOUNTER 2021-05-14 09:23 | Outpatient (REF) | payer MEDICARE, MEDICAID, SELFPAY ==
--- NOTE | ~2021-05-14 | XR_ITS ---
EXAMINATION: XR SHOULDER, RIGHT CLINICAL INFORMATION: Pain right shoulder COMPARISON: None TECHNIQUE: AP external rotation, Grashey, scapular Y, and axillary views of the right shoulder. FINDINGS: There is mild loss of right AC joint with periarticular spurring. The glenohumeral joint space is mildly decreased as well. No visible acute fracture, dislocation or subluxation seen. XR/XR shoulder RT min 2V IMPRESSION: Degenerative osteoarthritic changes right AC joint and glenohumeral joint space.
== END 2021-05-14 09:24 | disposition home or self-care (01) ==
LOC: HO.XRAY 09:23
PROVIDERS: PCP Internal Medicine; Visit Provider Internal Medicine
DX: M25.511 Pain in right shoulder (principal)
CPT/HCPCS: 73030

== ENCOUNTER → 2021-06-04 13:28 | Outpatient (BNVA) | payer MEDICARE, MEDICAID, SELFPAY | PROVIDERS: Visit Provider Orthopaedic Surgery | DX: M25.511 Pain in right shoulder (principal); G89.29 Other chronic pain | CPT/HCPCS: 20610; 99202; 99212; J1100 ==

== ENCOUNTER 2021-06-08 12:22 | Outpatient (REF) | payer MEDICARE, MEDICAID, SELFPAY ==
--- NOTE | ~2021-06-08 | US_ITS ---
EXAMINATION: US RETROPERITONEAL LIMITED (RENAL ONLY) CLINICAL INFORMATION: Calculus of kidney. COMPARISON: CT abdomen and pelvis with contrast dated 01/14/2021. TECHNIQUE: Real-time imaging of the kidneys. FINDINGS: RIGHT KIDNEY: 11.8 x 3.9 x 5.0 cm (SAG x AP x TRV). The kidney is normal in size and echogenicity. Renal cortical thickness is normal. No calculi or focal parenchymal lesions. No hydronephrosis. LEFT KIDNEY: 11.1 x 5.9 x 4.7 cm (SAG x AP x TRV). The kidney is normal in size, contour, and echogenicity. Renal cortical thickness is normal. There are 2 3 mm echogenic densities in the upper and midpole with twinkle artifact questionable for small stones. No stone is seen on December 2020 CT scan. No focal parenchymal lesions or hydronephrosis. US/US renal BI IMPRESSION: Question small left renal stones.
[2021-06-08 14:16] LABS: MANUAL DIFF FLAG NO
[2021-06-08 14:21] LABS: Basophils Percent Auto 0.7 % (0-2); Eosinophils Absolute Auto 0.1 X10*3/uL (0.0-0.4); Eosinophils Percent Auto 2.1 % (0-4); Hematocrit 41.4 % (42-52); Hemoglobin 13.5 g/dl (14.0-18.0); Imm Gran Abs Auto 0.01 X10*3/uL (0.00-0.03); Imm Gran Pct Auto 0.2 % (0.0-0.4); Lymphocytes Absolute Auto 1.7 X10*3/uL (1.2-4.9); Mean Corpuscular HGB Conc 32.6 g/dl (31.0-36.0); Mean Corpuscular Hemoglobin 29.2 pg (27.0-33.0); Mean Corpuscular Volume 89.4 fL (80-98); Mean Platelet Volume 12.6 fL (9.4-12.4); Monocytes Absolute Auto 0.6 X10*3/uL (0.1-1.2); Monocytes Percent Auto 9.3 % (2-11); Neutrophils Absolute Auto 3.7 X10*3/uL (2.0-8.3); Neutrophils Percent Auto 59.7 % (45-73); Platelet Count 139 X10*3/uL (160-400); Red Blood Count 4.63 X10*6/uL (4.60-5.80); Red Cell Distribution Width 14.5 % (11.0-16.0); White Blood Count 6.1 X10*3/uL (4.8-10.8)
[2021-06-08 14:40] LABS: Iron 113 mcg/dL (45-160); Percent Iron Saturation 29 % (15-50); Total Iron Binding Capacity 392 mcg/dL (228-428); Unsaturated Iron Binding 279 ug/dL
[2021-06-12 06:28] LABS: Vitamin D 25-OH, D2 <4 ng/mL; Vitamin D 25-OH, D3 30 ng/mL; Vitamin D 25-OH, Total 30 ng/mL (30-100)
== END 2021-06-08 12:23 | disposition home or self-care (01) ==
LOC: HO.US 12:22
PROVIDERS: Visit Provider Internal Medicine
DX: N20.0 Calculus of kidney (principal); E55.9 Vitamin D deficiency, unspecified; D64.9 Anemia, unspecified
CPT/HCPCS: 36415; 76775; 82306; 83540; 85025

== ENCOUNTER 2021-06-15 12:57 | Outpatient (REF) | payer MEDICARE, MEDICAID, SELFPAY ==
--- NOTE | ~2021-06-15 | MR_ITS ---
EXAMINATION: MR SHOULDER WITHOUT CONTRAST, RIGHT CLINICAL INFORMATION: Right shoulder pain. Decreased range of motion. COMPARISON: Right shoulder radiographs dated 05/14/2021. TECHNIQUE: MRI of the shoulder without contrast was performed on a high-field scanner. FINDINGS: ROTATOR CUFF: Supraspinatus tendinosis with anterior articular surface partial tearing measuring 2.2 cm in AP dimension. There appear to be small full-thickness components anteriorly. Articular surface partial tearing extends posteriorly into the anterior infraspinatus tendon. Moderate subscapularis tendinosis with distal articular surface partial tearing measuring 3.7 cm in ML dimension. No muscle atrophy or fatty infiltration. BICEPS: Absence of the proximal long head biceps tendon, consistent with a tear and retraction. Prominent fluid within the tendon sheath. CORACOACROMIAL ARCH: The undersurface of the acromion is curved with anterior subacromial spurring. Moderate acromioclavicular osteoarthritis. LABRUM/CAPSULE: Degenerative signal throughout the superior labrum. Nondisplaced undersurface tearing at the posterosuperior labrum. Additional nondisplaced undersurface tearing at the inferior labrum. GLENOHUMERAL JOINT/MARROW: Central glenoid articular cartilage thinning with areas of near full-thickness fissuring. Tiny marginal osteophytes. Moderate joint effusion. MR/MR shoulder RT wo con IMPRESSION: 1. Supraspinatus and infraspinatus tendinosis with articular surface partial tearing extending through the majority of the supraspinatus tendon into the anterior aspect of the infraspinatus tendon. Probable full-thickness components to the tear anteriorly within the supraspinatus tendon. 2. Moderate subscapularis tendinosis with distal articular surface partial tearing measuring 3.7 cm in ML dimension. 3. Complete tear and retraction of the proximal long head biceps tendon. Prominent fluid within the tendon sheath. 4. Moderate acromioclavicular osteoarthritis with anterior subacromial spurring. 5. Nondisplaced undersurface tearing at the posterosuperior and inferior labrum. Degenerative signal throughout the superior labrum. 6. Mild glenohumeral osteoarthritis. Moderate joint effusion.
== END 2021-06-15 12:58 | disposition home or self-care (01) ==
LOC: HO.MRI 12:57
PROVIDERS: Visit Provider Orthopaedic Surgery
DX: M25.511 Pain in right shoulder (principal); G89.29 Other chronic pain
CPT/HCPCS: 73221

== ENCOUNTER → 2021-07-16 12:08 | Outpatient (BNVA) | payer MEDICARE, MEDICAID, SELFPAY | PROVIDERS: PCP Internal Medicine; Visit Provider Orthopaedic Surgery | DX: M75.101 Unspecified rotator cuff tear or rupture of right shoulder, not specified as traumatic (principal); M25.511 Pain in right shoulder; F17.210 Nicotine dependence, cigarettes, uncomplicated; Z88.5 Allergy status to narcotic agent; Z88.8 Allergy status to other drugs, medicaments and biological substances | CPT/HCPCS: 99212 ==

== ENCOUNTER 2021-07-24 08:11 | Outpatient (REF) | payer MEDICARE, MEDICAID, SELFPAY ==
--- NOTE | ~2021-07-24 | XR_ITS ---
EXAMINATION: XR ABDOMEN KUB CLINICAL INDICATION: Diverticulosis of intestine. COMPARISON: CT abdomen and pelvis 01/14/2021. TECHNIQUE: AP view of the abdomen. FINDINGS: Again seen is a moderate-sized hiatal hernia. The bowel gas pattern is otherwise normal with no evidence of ileus or obstruction. No unusual soft tissue calcifications are noted. Rounded osseous calcification adjacent to greater trochanter. Degenerative changes are present throughout the spine and there is posterior fixation at L5-S1 with a disc space prosthesis present at the same level. XR/XR abdomen 1V IMPRESSION: 1. No evidence of bowel obstruction. 2. Hiatal hernia. 3. Spine stabilization surgery.
[2021-07-24 11:23] LABS: Blood Urea Nitrogen 7 mg/dL (9-16); Estimated Glomerular Filt Rate > 60
[2021-07-24 11:24] LABS: Iron 64 mcg/dL (45-160); Percent Iron Saturation 16 % (15-50); Total Iron Binding Capacity 411 mcg/dL (228-428); Unsaturated Iron Binding 347 ug/dL
== END 2021-07-24 08:12 | disposition home or self-care (01) ==
LOC: HO.LAB 08:11
PROVIDERS: PCP Internal Medicine; Visit Provider Internal Medicine Gastroenterology
DX: K57.90 Diverticulosis of intestine, part unspecified, without perforation or abscess without bleeding (principal); D64.9 Anemia, unspecified; K59.00 Constipation, unspecified; R00.2 Palpitations; F17.210 Nicotine dependence, cigarettes, uncomplicated
CPT/HCPCS: 36415; 74018; 82565; 83540; 84520; 99212

== ENCOUNTER 2021-07-29 08:25 | Day surgery (SDC) | payer MEDICARE, MEDICAID, SELFPAY ==
--- NOTE | 2021-07-28 08:55 | HO.ANESPROP2 ---
Documented by User: Pinky Torres NP 07/28/21 08:57 HPI - Anesthesia Eval Consult details Narrative: 65yo M for Right Arthroscopic Rotator Cuff Repair PMFSH Active Problems Active Problems: All Active Problems (Updated 07/24/21 @ 10:11 by Harjeet Nguyen MD) Palpitations (Acute) Constipation (Acute) Rotator cuff tear, right (Acute) Renal calculi (Acute) Right shoulder pain (Acute) Diverticulosis (Acute) Erectile dysfunction due to arterial insufficiency (Acute) Lumbar pain (Acute) Right foot pain (Acute) Left hip pain (Acute) Skin lesion (Acute) Microcytic hypochromic anemia (Acute) Epididymal cyst (Acute) Esophageal hernia (Acute) Orchalgia (Acute) Anemia (Acute) Post-op pain (Acute) Smoker (Acute) Insomnia (Acute) GERD (gastroesophageal reflux disease) (Acute) Diverticulosis (Acute) Anxiety (Acute) Past Medical History Medical History Anemia Anxiety Diverticulosis Esophageal hernia GERD (gastroesophageal reflux disease) Hx of hepatitis C Insomnia Left hip pain Lumbar pain Orchalgia Post-op pain Renal calculi Right foot pain Right shoulder pain Skin lesion Smoker Family History Family History Father Prostate cancer Mother Colon cancer Brother Prostate cancer Family/Other FH: mental illness Sister Chronic mental illness Surgical History Surgical History H/O hand surgery History of back surgery History of esophagogastroduodenoscopy (EGD) History of mandibular surgery History of repair of laceration History of sinus surgery Hx of colonoscopy Social History Social History Housing: Other Housing Other:: rents a room Alcohol intake: former Patient Tobacco Use Status: Current everyday Tobacco user Tobacco use type: Cigarette Cigarettes Per Day: 2 Years Smoked: 15 e-Cigarette/Vaping Use: Never Used Second Hand Smoke Exposure: No Use of substances other than those prescribed or required for medical reasons: No Are you DNR?: No Advance Directives: No Advance Directives Information Provided: Yes service: No Current occupational status: disabled Meds Allergies Allergy/AdvReac Type Severity Reaction Status Date / Time codeine [CODEINE] Allergy Intermediate nausea Verified 07/24/21 09:41 trazodone [TRAZODONE] Allergy Intermediate SHORTNESS Verified 07/24/21 09:41 OF BREATH lactose [LACTOSE] AdvReac Intermediate upset Verified 07/24/21 09:41 stomach Home Medications Medication Instructions Recorded Confirmed Last Taken Type naproxen 500 mg tablet 500 mg PO BID 07/24/21 Unknown History Exam Exam Date and Time: July 28, 2021 08 Pertinent Lab Results Pertinent Lab Results: Laboratory Tests 04/07/21 06/08/21 07/24/21 11:55 13:53 10:40 WBC 6.1 Hgb 13.5 L Hct 41.4 L Plt Count 139 L Sodium 141 Potassium 4.4 Chloride 105 Carbon Dioxide 28 BUN 7 L Creatinine 0.84 Assessment and Plan Assessment Anesthesia Assessment: Chart Reviewed Documented by User: Tiffany Salcido MD 07/29/21 12:06 PMFSH Past Medical History Medical History Anemia Anxiety Diverticulosis Esophageal hernia GERD (gastroesophageal reflux disease) Hx of hepatitis C Insomnia Left hip pain Lumbar pain Orchalgia Post-op pain Renal calculi Right foot pain Right shoulder pain Skin lesion Smoker Family History Family History Father Prostate cancer Mother Colon cancer Brother Prostate cancer Family/Other FH: mental illness Sister Chronic mental illness Family history of problems with anesthesia: No Surgical History Surgical History H/O hand surgery History of back surgery History of esophagogastroduodenoscopy (EGD) History of mandibular surgery History of repair of laceration History of sinus surgery Hx of colonoscopy History of Problems with Anesthesia: No Social History Social History Housing: Other Housing Other:: rents a room Alcohol intake: former Patient Tobacco Use Status: Current everyday Tobacco user Tobacco use type: Cigarette Cigarettes Per Day: 2 Years Smoked: 15 e-Cigarette/Vaping Use: Never Used Second Hand Smoke Exposure: No Use of substances other than those prescribed or required for medical reasons: No Are you DNR?: No Advance Directives: No Advance Directives Information Provided: Yes service: No Current occupational status: disabled Meds Allergies Allergy/AdvReac Type Severity Reaction Status Date / Time codeine [CODEINE] Allergy Intermediate nausea Verified 07/24/21 09:41 trazodone [TRAZODONE] Allergy Intermediate SHORTNESS Verified 07/24/21 09:41 OF BREATH lactose [LACTOSE] AdvReac Intermediate upset Verified 07/24/21 09:41 stomach Home Medications Medication Instructions Recorded Confirmed Last Taken Type naproxen 500 mg tablet 500 mg PO BID 07/24/21 Unknown History Exam Airway Mallampati Class: II TM Dist: >3cm Neck ROM: Full Denture: Upper Heart: rrr Lungs: cta Assessment and Plan Assessment Anesthesia Assessment: Anesthesia Plan Discussed and Chart Reviewed Final Anesthetic Review Family History of Problems with Anesthesia: No History of Problems with Anesthesia: No NPO: Yes ASA Class: II Final Preanesthetic Review: No Changes in Pt Med Stat, Meds/Allgs Chart Reviewed and Consent Obtained/Reviewed Patient Risk: Intermediate Procedure Risk: Intermediate Anesthetic Plan Anesthetic Plan: GA and Regional Block (InterscLene block) Disposition: Standard PACU
[2021-07-29] VITALS (9 sets, daily range): BP systolic 107–171; BP diastolic 49–99; PULSE 69–95; RESP 16–20; TEMP 36.2–36.4; O2SAT 94–97; BMI 28.2
[2021-07-29] MEDS: Lactated Ringers 1,000 ML 100 ML IVCONT (09:30)
--- NOTE | 2021-07-29 11:57 | MHC.SHP ---
Pre-Procedural Eval Section A Date of Service: 07/29/21 The patient is an INPATIENT: No Changes since office visit: Yes Patient answered all questions; No Cold of Flu in the past 2 weeks, No New Medical Problems and No Changes in Medication The History & Physical has been completed within 30 days and I have reviewed it.: Yes Section B Chief Complaint: rotator cuff tear Allergies: Allergies Allergy/AdvReac Type Severity Reaction Status Date / Time codeine [CODEINE] Allergy Intermediate nausea Verified 07/24/21 09:41 trazodone [TRAZODONE] Allergy Intermediate SHORTNESS Verified 07/24/21 09:41 OF BREATH lactose [LACTOSE] AdvReac Intermediate upset Verified 07/24/21 09:41 stomach Plan I have reviewed the history and physical and performed a pertinent physical examination on my patient. No changes have occurred unless specified.
--- NOTE | 2021-07-29 14:09 | P.BOP_ITS ---
Brief Operative Note Date of Service: 07/29/21 Pre-op diagnosis: right shoulder rtc tear and biceps tendon tear Post-op diagnosis: same Procedure: repair subscapularis tenotomy biceps circumferential labral debridement Implants: riddle and nephew PEEK anchor x1 Surgeon: Marino Ruth MD Anesthesia: GETA and local Was an Senior Licensing Manager used for this Procedure?: Yes Senior Licensing Manager: Nini Craven Estimated blood loss (mL): 5 IV fluids (mL): 1,000 Pathology: other Condition: stable Disposition: PACU
[2021-07-29] MEDS: oxyCODONE HCl Immed Release 5 MG TABLET PO ×2 (14:40→15:57)
[2021-07-29] MEDS: fentaNYL citrate/PF 100 MCG/2 ML VIAL 50 MCG IVPUSH (14:45)
--- NOTE | 2021-07-29 15:59 | PC.NURSE ---
Pt assisted with dressing, sling to right arm intact. Pt reports inadequate relief of right shoulder pain-remedicated with another Oxycodone 5 mg PO per anesthesia prior DC home.
--- NOTE | 2021-08-11 14:59 | P.OP_ITS ---
Operative Note Operative Note Date of Service: 07/29/21 Narrative: Pre-op diagnosis: right shoulder rtc tear and biceps tendon tear Post-op diagnosis: same Procedure: RTC repair of the subscapularis with tenotomy of the biceps and circumferential labral debridement Implants: riddle and nephew PEEK anchor x1 Surgeon: Marino Ruth MD Anesthesia: GETA and local Was an Appraiser Personal Property used for this Procedure?: Yes Appraiser Personal Property: Nini Craven Estimated blood loss (mL): 5 IV fluids (mL): 1,000 Pathology: other Condition: stable Disposition: PACU Procedure in detail: Patient was brought to the operating room and placed the the beach chair position. All bony prominences were well padded and the limb was prepped and draped in standard sterile fashion. A time out was called to identify proper site, proper procedure and proper surgeon. IV antibiotics per weight were administered. I began by making a posterolateral stab incision with a 15 blade. A blunt trochar was placed into the glenohumeral joint and I insufflated the joint with saline and a 30 degree arthroscope was placed. I established an outside- in anterior portal just distal to the biceps tendon. I then began my inspection of the glenohumeral joint. The glenohumeral joint cartilage structures were intact with no evidence of arthritis. There was a tear of the labrum labrum circumferentially and the biceps which was nearly completely torn. The undersurface of the rotator cuff was intact and the gutters were clean. There was a tear of the subscapularis with mild-moderate retraction and changes of the tendon consistent witha chronic injury. I tenotomized the biceps and debrided the labral circumferentially. I then released the subscapularis superiorly, posteriorly and anteriorly and was able to obtain increased excursion but it was still tight. I debrided down the subscapularis insertion to bleeding bone and then placed 2 FiberTape sutures through the retracted portion of the subscapularis and then while internally rotating the humerus was able to repair this back to the insertion site using a riddle and nephew helacoil suture anchor.. I had good reapproximation of the tendon although the quality of the tendon was not ideal. Once the subscapularis was reapproximated I again examined the superior aspect of the rotator cuff and it there were no undersurface tears. I then entered the subacromial space and established a direct lateral portal. I then debrided out the bursa and examined the superior aspect of the cuff. Again there was no evidence of superior rotator cuff tearing and a decompression was not performed. I then removed all instrumentation and closed the portals with nylon. Patient was placed in sterile dressing and abduction sling extubated and brought to the recovery room in stable condition there. There were no known complications.
== END 2021-07-29 16:08 | disposition home or self-care (01) ==
PROVIDERS: PCP Internal Medicine; Visit Provider Orthopaedic Surgery
PROC: (CPT 29827; principal; 2021-07-29 10:00)
DX: S46.011A Strain of muscle(s) and tendon(s) of the rotator cuff of right shoulder, initial encounter (principal); S46.121A Laceration of muscle, fascia and tendon of long head of biceps, right arm, initial encounter; W19.XXXA Unspecified fall, initial encounter; Y93.9 Activity, unspecified; Y92.9 Unspecified place or not applicable; Y99.8 Other external cause status; D50.9 Iron deficiency anemia, unspecified; R00.2 Palpitations; K21.9 Gastro-esophageal reflux disease without esophagitis; G47.00 Insomnia, unspecified; Z86.19 Personal history of other infectious and parasitic diseases; Z79.899 Other long term (current) drug therapy; Z88.8 Allergy status to other drugs, medicaments and biological substances; F17.210 Nicotine dependence, cigarettes, uncomplicated
CPT/HCPCS: 29827; 29822; C1713; J0171; J0690; J2250; J2405; J3010

== ENCOUNTER → 2021-08-13 09:38 | Outpatient (BNVA) | payer MEDICARE, MEDICAID, SELFPAY | PROVIDERS: PCP Internal Medicine; Visit Provider Physician Assistant | DX: Z98.890 Other specified postprocedural states (principal) | CPT/HCPCS: 99212 ==

== ENCOUNTER 2021-09-02 12:40 | Outpatient (REF) | payer MEDICARE, MEDICAID, SELFPAY ==
[2021-09-02 14:01] LABS: Imm Gran Abs Auto 0.01 X10*3/uL (0.00-0.03); Imm Gran Pct Auto 0.2 % (0.0-0.4); MANUAL DIFF FLAG SCAN; Mean Corpuscular Hemoglobin 30.2 pg (27.0-33.0); Neutrophils Absolute Auto 2.9 X10*3/uL (2.0-8.3); SCAN SMEAR FLAG 1
[2021-09-02 14:03] LABS: Basophils Percent Auto 0.7 % (0-2); Eosinophils Absolute Auto 0.1 X10*3/uL (0.0-0.4); Eosinophils Percent Auto 2.1 % (0-4); Hematocrit 40.7 % (42-52); Hemoglobin 13.4 g/dl (14.0-18.0); Lymphocytes Absolute Auto 1.8 X10*3/uL (1.2-4.9); Lymphocytes Percent Auto 33.6 % (20-40); Mean Corpuscular HGB Conc 32.9 g/dl (31.0-36.0); Mean Corpuscular Volume 91.7 fL (80-98); Monocytes Absolute Auto 0.5 X10*3/uL (0.1-1.2); Monocytes Percent Auto 9.7 % (2-11); Neutrophils Percent Auto 53.7 % (45-73); PLT CLUMP 1; Red Blood Count 4.44 X10*6/uL (4.60-5.80); Red Cell Distribution Width 13.6 % (11.0-16.0)
[2021-09-02 14:04] LABS: PLT ABN DIST 1; White Blood Count 5.4 X10*3/uL (4.8-10.8)
[2021-09-02 14:05] LABS: Platelet Count 117 X10*3/uL (160-400)
[2021-09-02 14:22] LABS: SLIDE REVIEW VERIFIED
[2021-09-02 14:37] LABS: Alanine Aminotransferase 11 U/L (0-40); Albumin Level 4.3 g/dL (3.5-5.0); Alkaline Phosphatase 64 U/L (39-117); Anion Gap 11 (12-20); Aspartate Amino Transferase 19 U/L (5-37); Bilirubin Total 0.4 mg/dL (0.0-1.0); Blood Urea Nitrogen 8 mg/dL (9-16); Calcium 9.2 mg/dL (8.4-10.2); Carbon Dioxide 27 mmol/L (22-29); Chloride 106 mmol/L (96-108); Cholesterol 167 mg/dL; Estimated Glomerular Filt Rate > 60; Glucose Random 82 mg/dL (60-115); HDL Cholesterol 54 mg/dL; LDL Cholesterol Calculated 104 mg/dl; Potassium 4.2 mmol/L (3.3-5.1); Sodium 140 mmol/L (135-145); Total Protein 7.1 g/dL (6.5-8.0); Triglycerides 46 mg/dL
[2021-09-02 14:41] LABS: Iron 69 mcg/dL (45-160); Percent Iron Saturation 17 % (15-50); Total Iron Binding Capacity 412 mcg/dL (228-428); Unsaturated Iron Binding 343 ug/dL
[2021-09-02 14:58] LABS: Ferritin 14 ng/mL (20-250)
[2021-09-02 15:33] LABS: Prostate Specific Antigen Scr 0.15 ng/mL (<0.05-4.0)
== END 2021-09-02 12:41 | disposition home or self-care (01) ==
LOC: HO.LAB 12:40
PROVIDERS: Internal Medicine Gastroenterology; Internal Medicine Medical Oncology; PCP Internal Medicine; Visit Provider Nurse Practitioner Family
DX: Z12.5 Encounter for screening for malignant neoplasm of prostate (principal); C61 Malignant neoplasm of prostate; E78.00 Pure hypercholesterolemia, unspecified; D64.9 Anemia, unspecified
CPT/HCPCS: 36415; 80053; 80061; 82728; 83540; 84153; 85025

== ENCOUNTER → 2021-09-10 10:47 | Outpatient (BNVA) | payer MEDICARE, MEDICAID, SELFPAY | PROVIDERS: Visit Provider Physician Assistant | DX: Z98.890 Other specified postprocedural states (principal) | CPT/HCPCS: 99212 ==

== ENCOUNTER → 2021-09-21 14:06 | Outpatient (BNVA) | payer MEDICARE, MEDICAID, SELFPAY | PROVIDERS: PCP Internal Medicine; Referring Provider Internal Medicine; Visit Provider Internal Medicine | DX: R00.2 Palpitations (principal); R07.2 Precordial pain | CPT/HCPCS: 93005; 99202 ==

== ENCOUNTER → 2021-10-01 11:33 | Outpatient (BNVA) | payer MEDICARE, MEDICAID, SELFPAY | PROVIDERS: PCP Internal Medicine; Referring Provider Internal Medicine; Visit Provider Surgery | DX: K57.90 Diverticulosis of intestine, part unspecified, without perforation or abscess without bleeding (principal) | CPT/HCPCS: 99202 ==

== ENCOUNTER → 2021-10-06 12:15 | Outpatient (BNVA) | payer MEDICARE, MEDICAID, SELFPAY | PROVIDERS: PCP Internal Medicine; Referring Provider Internal Medicine; Visit Provider Internal Medicine Gastroenterology | DX: M54.9 Dorsalgia, unspecified (principal); K59.00 Constipation, unspecified | CPT/HCPCS: 99212 ==

== ENCOUNTER 2021-10-12 11:09 | Outpatient (REF) | payer MEDICARE, MEDICAID, SELFPAY ==
--- NOTE | ~2021-10-12 | US_ITS ---
EXAMINATION: US RETROPERITONEAL LIMITED (AORTA) CLINICAL INFORMATION: Screening for AAA. History of smoking. COMPARISON: CT abdomen and pelvis 01/14/2021. TECHNIQUE: Govea-scale, color Doppler and spectral Doppler evaluation of the abdominal aorta. Technically difficult study secondary to bowel gas. FINDINGS: There is mild atherosclerotic calcified plaque distal abdominal aorta. The measurements of the aorta in maximum AP and transverse dimensions respectively are as follows: Proximal: 3.1 x 3.2 cm. Mid: 2.6 x 2.5 cm. Distal: 1.9 x 1.9 cm. PSV: 66.6 cm/s. The measurements of the common iliac arteries in maximum AP and TRV dimensions are as follows: Right: AP: 1.2 cm. TRV: 1.4 cm. Left: AP: 1.3 cm. TRV: 1.3 cm. US/US aorta IMPRESSION: Mild arthroscopic plaque distal abdominal aorta. There is no aneurysmal dilatation seen.
== END 2021-10-12 11:10 | disposition home or self-care (01) ==
LOC: HO.US 11:09
PROVIDERS: PCP Internal Medicine; Visit Provider Nurse Practitioner Family
DX: Z13.6 Encounter for screening for cardiovascular disorders (principal)
CPT/HCPCS: 76775

== ENCOUNTER → 2021-10-26 12:16 | Outpatient (BNVA) | payer MEDICARE, MEDICAID, SELFPAY | PROVIDERS: PCP Internal Medicine; Visit Provider Orthopaedic Surgery | DX: Z47.89 Encounter for other orthopedic aftercare (principal); S43.439D Superior glenoid labrum lesion of unspecified shoulder, subsequent encounter | CPT/HCPCS: 99212 ==

== ENCOUNTER → 2021-10-27 08:56 | Outpatient (REF) | payer MEDICARE, MEDICAID, SELFPAY ==
--- NOTE | ~2021-10-27 | NM_ITS ---
EXERCISE MYOCARDIAL PERFUSION STUDY INDICATION: Abnormal echocardiogram, palpitations, assess for coronary disease and ischemia TECHNIQUE: The patient was brought in for an exercise perfusion study on 10/27/2021. Patient performed exercise as per Ethan protocol and was injected 30 mCi of sestamibi once target heart rate was achieved. Images were obtained using the SPECT gamma camera interlaced with the gating device. Images were obtained in supine position. Resting perfusion study was performed on 10/29/2021. Patient was administered 30 mCi of sestamibi intravenously at rest. Images were then obtained in supine position. Total DLP 145mGy-cm. Images were processed with the software and compared side to side in short axis, horizontal long axis and vertical long axis views. FINDINGS: Raw images were reviewed. Arms by the patient's side. There is bowel uptake adjacent to the inferior wall. The stress perfusion study showed diminished tracer uptake along the inferior, inferolateral wall. This is persisting with CT attenuation correction. The gated study shows diminished LV systolic function with calculated LVEF of 40%. LV cavity is normal in size. The gated study shows diminished wall thickening and contraction of the inferior wall, towards the base. Resting study shows difficult to assess the inferior wall due to adjacent GI tracer uptake. Possibly some decrease in tracer uptake towards the inferior apex. Basal inferolateral wall with some improvement in uptake Gating at rest reveals ejection fraction at 45%. Some diminished contractility towards the basal part of inferior wall. The findings are consistent with probable fixed inferior defect with some reversible components towards the basal inferolateral wall. Difficult assessment due to adjacent bowel uptake. NM/NM cardiolite stress test IMPRESSION: 1. Myocardial perfusion imaging study shows probable old infarct in the inferior/inferolateral wall with some ischemia towards the basal inferolateral wall area. Difficult to assess due to adjacent bowel tracer uptake. 2. Gated LVEF is 40% during stress and 44% during rest. 3. Transient ischemic dilatation not present. EKG component of the test reported separately.
--- NOTE | 2021-10-27 09:00 | CA_ITS ---
Transthoracic Echocardiogram Patient (Last, First, Middle): Peewee Moralez, Gender: Male Date of : 1955 Age: 65 Procedure Date: 10/27/2021 Procedure Type: Transthoracic Echocardiogram Location: OP Height: 167.64 cm Weight: 81.65 kg BSA: 1.91 m2 Heart Rate: bpm BP: 124 / 80 mmHg Agricultural Economics Teacher: Referring MD: Ken Cummins MD Symptoms: I25.10 - Atherosclerotic heart disease of [place] coronary... Study Quality: Good ECG Rhythm: Sinus Conclusions: - The left ventricular systolic function is moderately decreased. The visually estimated ejection fraction is between 35-40%. - The inferolateral wall, the basal inferior, and mid anterolateral segments are akinetic. - Mildly increased right ventricular cavity size. Findings Left Ventricle Normal left ventricular cavity size. There is mildly increased left ventricular wall thickness. The left ventricular systolic function is moderately decreased. The visually estimated ejection fraction is between 35 40%. There is evidence of regional wall motion abnormalities. E/E prime ratio is <8, consistent with normal filling pressures. Evidence suggests grade I (mild) diastolic dysfunction. Wall Motion Rest Echo Findings The inferolateral wall, the basal inferior, and mid anterolateral segments are akinetic. Right Ventricle Mildly increased right ventricular cavity size. There is normal right ventricular systolic function. Atria The left atrium is moderately dilated. The right atrium is normal in size. Aortic Valve The aortic valve was not well visualized. There is no aortic valve stenosis. There is trace (trivial) aortic valve regurgitation. Mitral Valve The mitral valve appears normal. There is trace mitral valve regurgitation. There is no mitral valve stenosis. Pulmonic Valve The pulmonic valve was not well visualized. Tricuspid Valve Normal tricuspid valve structure. There is mild tricuspid valve regurgitation. The pulmonary artery systolic pressure is normal. Great Vessels The aortic annulus, sinuses of valsalva, and asc aorta are normal in size. Venous The inferior vena cava is normal in size and collapses greater than 50% with inspiration. Pericardium/Pleural There is no evidence of pericardial effusion. Prior Study Comparison Changes noted compared to prior study dated: 09/13/2012. See comments on wall motion. In prior study, noted basal inferior hypokinesis. Measurements 2D Linear Measurements IVSd: 1.31 0.6-0.9/0.6-1.0 cm LVIDd: 4.45 3.9-5.3/4.2-5.9 cm LVIDd Index: 2.33 2.4-3.2/2.2-3.1 cm/m2 LVIDs: 2.84 2.0-3.6 cm LVPWd: 1.33 0.7-1.1 cm Ao Root: 3.50 2.1-3.5 cm LA Diam: 3.40 2.7-3.8/3.0-4.0 cm LAIDs Index: 1.78 1.5-2.3 cm/m2 LV Mass: 279.01 67-162/88-224 g LV Mass Index: 146.08 43-95/49-115 g/m2 LVOT Diam: 2.40 3.0+(-)1.3 cm 2D Systolic Function EF 4C: 37.20 >55% EF 2C: 33.00 >55% EF BiP: 33.30 >55% Mitral Valve MV Pk E: 0.38 MV PK A: 0.93 MV Decel Time: 142.00 E/A: 0.40 E'Lateral: 4.57 E'Medial: 4.90 E/E' Med: 7.70 E/E' Lat: 8.20 PHT: 42.00 MVA PHT: 5.24 Decel Grayson: 2.65 Aortic Valve AoV Pk Konrad: 1.23 AoV Mn Konrad: 0.79 AoV VTI: 0.27 AoV Pk Grad: 6.00 Aov Mn Grad: 3.00 CARY Cont.VTI: 2.85 LVOT LVOT Pk Konrad: 0.85 LVOT Mn Konrad: 0.53 LVOT VTI: 0.17 LVOT Pk Grad: 3.00 LVOT Mn Grad: 1.00 LVOT Diam: 2.40 LVOT Area: 4.52 Diastolic Function MV Pk E: 0.38 MV Pk A: 0.93 E/A: 0.40 E'Medial: 4.90 E/E' Med: 7.70 E' Laterial: 4.57 E/E' Lat: 8.20 Right Ventricle TAPSE (mm): 31.00 TVS' Konrad: 16.00 Tricuspid Valve TR Pk Konrad: 2.47 TR Pk Grad: 24.00 Great Vessels Aorta Ao Root-2D: 3.50 2.0-3.7 cm Ao Asc: 3.40 2.1-3.4 cm Pulmonary Valve PV Pk Konrad: 1.02 Peak PV Grad: 4.00 Updated in Other Vendor System with Status of Final Ken Cummins MD electronically signed on 10/27/2021 4:43:55 PM with status of Final
--- NOTE | 2021-10-27 09:00 | CA_ITS ---
Acquisition Time: 2021-10-27 10:06:09 Total Exercise Time: 00:07:10 Test Indications: Palpitations Medications: ASA BACLOFEN LORATADINE NAPROXEN OMEPRAZOLE SILDENAFIL Protocol: ARCHIE Max HR: 139 BPM 89% of Pred: 155 BPM Max BP: 208/086 mmHG Max Work Load: 8.8 METS Exercise stress test with exercise 7 min 10 sec of Archie protocol, without anginal symptoms, with isolated PVC ( 2 different focuses), two multifocal ventricular cuplet, with hypertensive response to exercise with max BP 208/86, without EKG changes meeting criteria for ischemia. In recovery his BP returned to baseline. Nuclear images pending. Test reviewed with Dr Odonnell. Referred By: Ken Cummins Overread By: ROB SHAIKH
--- NOTE | 2021-10-27 09:00 | HM_ITS ---
Total monitoring time 3 days and 1 hour. Underlying rhythm is sinus. Minimum heart rate 64/Min. Maximum 127/Min. Average 84/Min. No atrial fibrillation or flutter or pauses. Very rare supraventricular ectopy with minimal burden. Frequent ventricular ectopy with the burden of 1.3%. 2 morphologies; 100 couplets; few short runs, longest 4 beats. No patient events. MTDD
== END ==
LOC: HO.CARD 08:56
PROVIDERS: Visit Provider Internal Medicine
DX: R07.2 Precordial pain (principal); R00.2 Palpitations; I25.10 Atherosclerotic heart disease of native coronary artery without angina pectoris
CPT/HCPCS: 78452; 93017; 93242; 93306; A9500

== ENCOUNTER → 2021-10-29 10:22 | Outpatient (BNVA) | payer MEDICARE, MEDICAID, SELFPAY | PROVIDERS: PCP Internal Medicine; Referring Provider Internal Medicine; Visit Provider Surgery | DX: K59.00 Constipation, unspecified (principal); K57.90 Diverticulosis of intestine, part unspecified, without perforation or abscess without bleeding | CPT/HCPCS: 99202 ==

== ENCOUNTER 2021-11-17 11:00 | Outpatient (RCR) | payer MEDICARE, MEDICAID, SELFPAY ==
--- NOTE | 2021-08-25 14:14 | MHC.PT.EP ---
[place] Office [place] Office [place] Office [address] Aayz Lind [address] [phone] F: [phone] F: [phone] F: [phone] F: [phone] Physical Therapy Plan of Care Date of Evaluation: Date of Surgery: 07/29/21 Diagnosis: unspecified RTC tear or rupture of R shoulder Assessment: 65 y/o M s/p R RTC repair (subscapularis repair with biceps tenotomy and labral debridement) on 07/29/21. He is in a sling, however is minimally compliant with sling. FOr instance, he wears the sling like it is a sling bag with R UE free from sling. He is not sleeping with the sling and he WB through R UE. He actively moves R shoulder through flexion and abduction with sling on despite attempts to educate pt not to actively move arm during healing phase. He was not receptive to education re protection of RTC repair, sling use, avoiding behind back reaching, and minimizing AROM. He is currently limited with reaching, pulling, lifting, and overhead movement. Examination shows L UE ROM and strength WNL, R shoulder PROM kept to protocol but he is able to reach protocol measurements, R strength NT, TTP R anterior shoulder, and impaired postural awareness. He will need re-education re use of sling and ROM compliance with protocol (verse AROM to 150 FE and 100 abduction). Recommend PT 2x/week for 10 weeks to address impairments, implement HEP, and optimize functional mobility. Frequency and Duration: The patient will be seen 2x/week for 10 weeks Short Term Goals: 5 weeks 1. I with HEP 2. Demonstrate R shoulder AROM flexion and abduction to WFL Intermediate Goals: 10 weeks: 1. i with HEP and self management of sx 2. Demonstrate R shoulder AROM WFL to assist with overhead reaching 3. Pt will be able to lift 20# box with pain <3/10 and proper mechanics Treatment Plan: Modalities to reduce pain, spasms and effusion. Manual therapy to restore motion and function. Therapeutic exercise to improve strength and flexibility. Neuromuscular re-education for posture and balance. Therapeutic activities to return to functional activities of daily living. Electronically signed by: Tressa Bright PT Please sign and return to therapist. Thank you for your referral.
--- NOTE | 2021-11-26 13:17 | MHC.PT.DC ---
[facility] [place] Office [place] Office [place] Office [address] Ayaz Lind [address] [phone] F: [phone] F: [phone] F: [phone] F: [phone] Physical Therapy Discharge Report Diagnosis: unspecified RTC tear or rupture of R shoulder Date of Surgery: 07/29/21 Date of Evaluation: 08/25/21 Date of Discharge: 11/26/21 Treatments to Date: 15 Cancellations to Date: 0 No Shows to Date: 0 Discharge Status: Improved Function Independent with HEP Patient Elected to Stop Discharge Summary: Pt called to self discharge following cardiac stress testing. States he will be undergoing more cardiac testing and is supposed to take it easy. He had only 2 more visits to complete PT and has improved function, strength, and ROM. D/c at this time. Electronically signed by: Tressa Bright PT Please sign and return to therapist. Thank you for your referral.
== END 2021-11-26 13:20 | disposition home or self-care (01) ==
LOC: HO.PT 11:00
PROVIDERS: PCP Internal Medicine; Visit Provider Physician Assistant
DX: M75.101 Unspecified rotator cuff tear or rupture of right shoulder, not specified as traumatic (principal)
CPT/HCPCS: 97110; 97140; 97161; 97530

== ENCOUNTER 2021-11-23 10:55 | Outpatient (REF) | payer MEDICARE, MEDICAID, SELFPAY ==
[2021-11-23 12:15] LABS: Hematocrit 43.2 % (42.0-52.0); Hemoglobin 14.4 g/dl (14.0-18.0); Mean Corpuscular HGB Conc 33.3 g/dl (31.0-36.0); Mean Corpuscular Hemoglobin 30.2 pg (27.0-33.0); Mean Corpuscular Volume 90.6 fL (80.0-98.0); Mean Platelet Volume 12.5 fL (9.4-12.4); Platelet Count 127 X10*3/uL (160-400); Red Blood Count 4.77 X10*6/uL (4.60-5.80); Red Cell Distribution Width 13.2 % (11.0-16.0); White Blood Count 5.8 X10*3/uL (4.8-10.8)
[2021-11-23 12:20] LABS: Prothrombin Time 11.2 SEC (9.9-13.0)
[2021-11-23 12:39] LABS: Anion Gap 8 (12-20); Blood Urea Nitrogen 8 mg/dL (9-16); Calcium 9.4 mg/dL (8.4-10.2); Carbon Dioxide 30 mmol/L (22-29); Chloride 107 mmol/L (96-108); Estimated Glomerular Filt Rate > 60; Glucose Random 88 mg/dL (60-115); Potassium 4.3 mmol/L (3.3-5.1); Sodium 141 mmol/L (135-145)
== END 2021-11-23 10:56 | disposition home or self-care (01) ==
LOC: HO.LAB 10:55
PROVIDERS: PCP Internal Medicine; Referring Provider Internal Medicine; Visit Provider Internal Medicine
DX: I25.5 Ischemic cardiomyopathy (principal); I25.10 Atherosclerotic heart disease of native coronary artery without angina pectoris; I49.3 Ventricular premature depolarization; Z79.899 Other long term (current) drug therapy; F17.210 Nicotine dependence, cigarettes, uncomplicated
CPT/HCPCS: 36415; 80048; 85027; 85610; 99212

== ENCOUNTER → 2021-12-29 11:14 | Outpatient (BNVA) | payer MEDICARE, MEDICAID, SELFPAY | PROVIDERS: PCP Internal Medicine; Referring Provider Internal Medicine; Visit Provider Internal Medicine | DX: I25.5 Ischemic cardiomyopathy (principal); I25.10 Atherosclerotic heart disease of native coronary artery without angina pectoris; I49.3 Ventricular premature depolarization | CPT/HCPCS: 99212 ==

== ENCOUNTER → 2022-02-19 10:01 | Outpatient (BNVA) | payer MEDICARE, MEDICAID, SELFPAY | PROVIDERS: PCP Internal Medicine; Referring Provider Internal Medicine; Visit Provider Internal Medicine Gastroenterology | DX: K57.90 Diverticulosis of intestine, part unspecified, without perforation or abscess without bleeding (principal) | CPT/HCPCS: 99212 ==

== ENCOUNTER → 2022-03-01 11:30 | Outpatient (BNVA) | payer MEDICARE, MEDICAID, SELFPAY | PROVIDERS: PCP Internal Medicine; Visit Provider Orthopaedic Surgery | DX: Z98.890 Other specified postprocedural states (principal) | CPT/HCPCS: 99212 ==

== ENCOUNTER → 2022-03-02 13:27 | Outpatient (BNVA) | payer MEDICARE, MEDICAID, SELFPAY | PROVIDERS: PCP Internal Medicine; Referring Provider Internal Medicine; Visit Provider Internal Medicine | DX: I25.5 Ischemic cardiomyopathy (principal); I25.10 Atherosclerotic heart disease of native coronary artery without angina pectoris; I49.3 Ventricular premature depolarization; E78.5 Hyperlipidemia, unspecified; F17.210 Nicotine dependence, cigarettes, uncomplicated; Z88.8 Allergy status to other drugs, medicaments and biological substances; Z88.6 Allergy status to analgesic agent; Z91.011 Allergy to milk products; Z79.899 Other long term (current) drug therapy | CPT/HCPCS: 99212 ==

== ENCOUNTER 2022-03-11 11:45 | Outpatient (REF) | payer MEDICARE, MEDICAID, SELFPAY ==
[2022-03-11 12:46] LABS: Alanine Aminotransferase 21 U/L (0-40); Albumin Level 4.4 g/dL (3.5-5.0); Alkaline Phosphatase 50 U/L (39-117); Anion Gap 10 (12-20); Aspartate Amino Transferase 26 U/L (5-37); Bilirubin Direct 0.2 mg/dL (0.0-0.5); Bilirubin Total 0.4 mg/dL (0.0-1.0); Blood Urea Nitrogen 12 mg/dL (9-16); Calcium 9.6 mg/dL (8.4-10.2); Carbon Dioxide 30 mmol/L (22-29); Chloride 105 mmol/L (96-108); Cholesterol 112 mg/dL; Estimated Glomerular Filt Rate > 60; Glucose Random 86 mg/dL (60-115); HDL Cholesterol 52 mg/dL; LDL Cholesterol Calculated 53 mg/dl; Potassium 4.2 mmol/L (3.3-5.1); Sodium 141 mmol/L (135-145); Total Protein 7.1 g/dL (6.5-8.0); Triglycerides 38 mg/dL
== END 2022-03-11 11:46 | disposition home or self-care (01) ==
LOC: HO.LAB 11:45
PROVIDERS: PCP Internal Medicine; Visit Provider Internal Medicine
DX: I25.10 Atherosclerotic heart disease of native coronary artery without angina pectoris (principal); I25.5 Ischemic cardiomyopathy; E78.5 Hyperlipidemia, unspecified
CPT/HCPCS: 36415; 80048; 80061; 80076

== ENCOUNTER 2022-03-15 10:02 | Outpatient (REF) | payer MEDICARE, MEDICAID, SELFPAY ==
[2022-03-15 10:57] LABS: COVID-19 Test Positive (Negative); IDNOW Serial# 16C4AD1C
== END 2022-03-15 10:03 | disposition home or self-care (01) ==
LOC: HO.LAB 10:02
PROVIDERS: Visit Provider Internal Medicine
DX: Z20.822 Contact with and (suspected) exposure to COVID-19 (principal)
CPT/HCPCS: 87635; C9803

== ENCOUNTER → 2022-03-29 10:41 | Outpatient (BNVA) | payer MEDICARE, MEDICAID, SELFPAY | PROVIDERS: PCP Internal Medicine; Visit Provider Nurse Practitioner Family | DX: M51.36 Other intervertebral disc degeneration, lumbar region (principal); M96.1 Postlaminectomy syndrome, not elsewhere classified; M54.50 Low back pain, unspecified; M47.816 Spondylosis without myelopathy or radiculopathy, lumbar region | CPT/HCPCS: 99212 ==

== ENCOUNTER → 2022-04-28 13:33 | Outpatient (BNVA) | payer MEDICARE, MEDICAID, SELFPAY | PROVIDERS: PCP Internal Medicine; Visit Provider Urology | DX: N52.01 Erectile dysfunction due to arterial insufficiency (principal) | CPT/HCPCS: 51798; 99212 ==

== ENCOUNTER → 2022-06-16 12:31 | Outpatient (REF) | payer MEDICARE, MEDICAID, SELFPAY ==
--- NOTE | 2022-06-16 12:34 | CA_ITS ---
Transthoracic Echocardiogram Patient (Last, First, Middle): Peewee Moralez, Gender: Male Date of : 1955 Age: 66 Procedure Date: 06/16/2022 Procedure Type: Transthoracic Echocardiogram Location: OP Height: 167.64 cm Weight: 81.65 kg BSA: 1.91 m2 Heart Rate: 70 bpm BP: 130 / 84 mmHg Research Technologist: SB Referring MD: Ken Cummins MD Symptoms: I25.5 - Ischemic cardiomyopathy Study Quality: Adequate ECG Rhythm: Sinus Conclusions: - The left ventricular systolic function is mildly decreased. The visually estimated ejection fraction is between 45-50%. - The inferolateral wall and basal inferior segment are akinetic. - Moderately increased right ventricular cavity size. - No obvious valvular pathology seen on this study. Findings Left Ventricle Normal left ventricular cavity size. There is normal left ventricular wall thickness. The left ventricular systolic function is mildly decreased. The visually estimated ejection fraction is between 45-50%. Diastolic function is normal for age. LV peak GLS -15.7%. Wall Motion Rest Echo Findings The inferolateral wall and basal inferior segment are akinetic. Right Ventricle Moderately increased right ventricular cavity size. There is normal right ventricular systolic function. Atria The left atrium is normal in size. The right atrium is moderately dilated. Aortic Valve There is a normal trileaflet aortic valve. There is no aortic valve stenosis. There is trace (trivial) aortic valve regurgitation. Mitral Valve The mitral valve appears normal. There is no mitral valve regurgitation. There is no mitral valve stenosis. Pulmonic Valve The pulmonic valve is likely normal. Tricuspid Valve Normal tricuspid valve structure. There is mild tricuspid valve regurgitation. The pulmonary artery systolic pressure is normal. Great Vessels The asc aorta is normal in size. Venous The inferior vena cava is normal in size and collapses greater than 50% with inspiration. Pericardium/Pleural There is no evidence of pericardial effusion. Prior Study Comparison Changes noted compared to prior study dated: 10/27/2021. LVEF improved. Recommendations, Care & Conclusions No obvious valvular pathology seen on this study. Measurements 2D Linear Measurements IVSd: 0.88 0.6-0.9/0.6-1.0 cm LVIDd: 5.38 3.9-5.3/4.2-5.9 cm LVIDd Index: 2.82 2.4-3.2/2.2-3.1 cm/m2 LVIDs: 4.04 2.0-3.6 cm LVPWd: 0.83 0.7-1.1 cm LA Diam: 3.50 2.7-3.8/3.0-4.0 cm LAIDs Index: 1.83 1.5-2.3 cm/m2 LV Mass: 208.24 67-162/88-224 g LV Mass Index: 109.02 43-95/49-115 g/m2 LVOT Diam: 2.50 3.0+(-)1.3 cm 2D Systolic Function EF 4C: 58.10 >55% EF 2C: 52.00 >55% EF BiP: 56.00 >55% Mitral Valve MV Pk E: 0.36 MV PK A: 0.52 MV Decel Time: 161.00 E/A: 0.70 E'Lateral: 6.09 E'Medial: 5.11 E/E' Med: 7.10 E/E' Lat: 6.00 PHT: 48.00 MVA PHT: 4.58 Decel Dundy: 2.31 Aortic Valve AoV Pk Konrad: 1.10 AoV Mn Konrad: 0.83 AoV VTI: 0.22 AoV Pk Grad: 5.00 Aov Mn Grad: 3.00 CARY Cont.VTI: 3.39 LVOT LVOT Pk Konrad: 0.77 LVOT Mn Konrad: 0.52 LVOT VTI: 0.15 LVOT Pk Grad: 2.00 LVOT Mn Grad: 1.00 LVOT Diam: 2.50 LVOT Area: 4.91 Diastolic Function MV Pk E: 0.36 MV Pk A: 0.52 E/A: 0.70 E'Medial: 5.11 E/E' Med: 7.10 E' Laterial: 6.09 E/E' Lat: 6.00 Right Ventricle TAPSE (mm): 25.30 TVS' Konrad: 15.90 Tricuspid Valve TR Pk Konrad: 2.50 TR Pk Grad: 25.00 RA Press: 3.00 RVSP: 28.00 Great Vessels Aorta Sinus of Valsalva: 3.30 2.0-3.5 cm Ao Asc: 3.20 2.1-3.4 cm Pulmonary Valve PV Pk Konrad: 1.06 Peak PV Grad: 4.00 Updated in Other Vendor System with Status of Final Ken Cummins MD electronically signed on 06/18/2022 11:57:53 AM with status of Final
== END ==
LOC: HO.CARD 12:31
PROVIDERS: PCP Internal Medicine; Visit Provider Internal Medicine
DX: I25.5 Ischemic cardiomyopathy (principal)
CPT/HCPCS: 93306; 93356

== ENCOUNTER → 2022-08-19 10:17 | Outpatient (BNVA) | payer MEDICARE, MEDICAID, SELFPAY | PROVIDERS: PCP Internal Medicine; Referring Provider Internal Medicine; Visit Provider Internal Medicine | DX: I25.5 Ischemic cardiomyopathy (principal); I25.10 Atherosclerotic heart disease of native coronary artery without angina pectoris; I49.3 Ventricular premature depolarization | CPT/HCPCS: 93005; 99212 ==

== ENCOUNTER → 2022-08-23 10:07 | Outpatient (BNVA) | payer MEDICARE, MEDICAID, SELFPAY | PROVIDERS: PCP Internal Medicine; Visit Provider Internal Medicine Gastroenterology | DX: R10.32 Left lower quadrant pain (principal); D50.9 Iron deficiency anemia, unspecified | CPT/HCPCS: 99212 ==

== ENCOUNTER 2022-10-04 12:41 | Outpatient (REF) | payer MEDICARE, MEDICAID, SELFPAY ==
--- NOTE | ~2022-10-04 | XR_ITS ---
EXAMINATION: XR THORACIC SPINE XR LUMBAR SPINE XR HAND, BILATERAL XR HIP, RIGHT XR SHOULDER, LEFT CLINICAL INFORMATION: Shoulder, hip, hand, low back and thoracic spine pain. COMPARISON: Lumbar spine 05/01/2020, thoracic spine 11/11/2015, CT abdomen and pelvis 01/14/2021. TECHNIQUE: 3 views thoracic spine, 3 views lumbar spine, 2 views right hip, 3 views each hand, 4 views left shoulder. FINDINGS: THORACIC AND LUMBAR SPINE: There is a mild biconvex thoracolumbar scoliosis present. Some minimal disc space narrowing is noted in the thoracic spine. No marked degenerative changes are seen. Soft tissue density seen at the diaphragmatic hiatus consistent with a hiatal hernia that is seen on prior CT exams. Marked degenerative changes are present in the lumbar spine at T12-L1 and L1-L2 with near-obliteration of disc spaces. There has been surgical fixation with posterior pedicular screws and interbody device at L4-L5 where there is a grade 1 anterolisthesis. No acute fractures or bony destructive lesions are seen. RIGHT HIP: No significant bone, joint or soft tissue abnormality is seen. RIGHT HAND: The 4th and 5th metacarpals are slightly small. Degenerative changes are seen at the CHCF joints predominantly at the 1st and 5th digit. Degenerative changes are also seen at the interphalangeal joints most marked at the 3rd PIP joint. Degenerative changes are seen at the 3rd metacarpophalangeal joint. No fractures. No chondrocalcinosis. LEFT HAND: Minimal degenerative changes are seen at the PIP joint of the 3rd digit and the MCP joint of the 3rd digit. Degenerative changes are also present at the 1st CHCF joint at the base of the thumb. No fractures or chondrocalcinosis. LEFT SHOULDER: There are mild degenerative changes at the AC joint as well as at the inferior aspect of the glenohumeral joint where there are some mild osteophytes. No abnormal tendinous calcification. No fractures. XR/XR thoracic spine 2V IMPRESSION: 1. Convex thoracolumbar scoliosis with degenerative changes from T12 to L2 and postop change at L4-L5 with grade 1 anterolisthesis. 2. Normal-appearing right hip. 3. Degenerative changes in both hands and shoulders as described above.
--- NOTE | ~2022-10-04 | XR_ITS ---
EXAMINATION: XR THORACIC SPINE XR LUMBAR SPINE XR HAND, BILATERAL XR HIP, RIGHT XR SHOULDER, LEFT CLINICAL INFORMATION: Shoulder, hip, hand, low back and thoracic spine pain. COMPARISON: Lumbar spine 05/01/2020, thoracic spine 11/11/2015, CT abdomen and pelvis 01/14/2021. TECHNIQUE: 3 views thoracic spine, 3 views lumbar spine, 2 views right hip, 3 views each hand, 4 views left shoulder. FINDINGS: THORACIC AND LUMBAR SPINE: There is a mild biconvex thoracolumbar scoliosis present. Some minimal disc space narrowing is noted in the thoracic spine. No marked degenerative changes are seen. Soft tissue density seen at the diaphragmatic hiatus consistent with a hiatal hernia that is seen on prior CT exams. Marked degenerative changes are present in the lumbar spine at T12-L1 and L1-L2 with near-obliteration of disc spaces. There has been surgical fixation with posterior pedicular screws and interbody device at L4-L5 where there is a grade 1 anterolisthesis. No acute fractures or bony destructive lesions are seen. RIGHT HIP: No significant bone, joint or soft tissue abnormality is seen. RIGHT HAND: The 4th and 5th metacarpals are slightly small. Degenerative changes are seen at the SENIOR LIVING joints predominantly at the 1st and 5th digit. Degenerative changes are also seen at the interphalangeal joints most marked at the 3rd PIP joint. Degenerative changes are seen at the 3rd metacarpophalangeal joint. No fractures. No chondrocalcinosis. LEFT HAND: Minimal degenerative changes are seen at the PIP joint of the 3rd digit and the MCP joint of the 3rd digit. Degenerative changes are also present at the 1st SENIOR LIVING joint at the base of the thumb. No fractures or chondrocalcinosis. LEFT SHOULDER: There are mild degenerative changes at the AC joint as well as at the inferior aspect of the glenohumeral joint where there are some mild osteophytes. No abnormal tendinous calcification. No fractures. XR/XR shoulder LT min 2V IMPRESSION: 1. Convex thoracolumbar scoliosis with degenerative changes from T12 to L2 and postop change at L4-L5 with grade 1 anterolisthesis. 2. Normal-appearing right hip. 3. Degenerative changes in both hands and shoulders as described above.
--- NOTE | ~2022-10-04 | XR_ITS ---
EXAMINATION: XR THORACIC SPINE XR LUMBAR SPINE XR HAND, BILATERAL XR HIP, RIGHT XR SHOULDER, LEFT CLINICAL INFORMATION: Shoulder, hip, hand, low back and thoracic spine pain. COMPARISON: Lumbar spine 05/01/2020, thoracic spine 11/11/2015, CT abdomen and pelvis 01/14/2021. TECHNIQUE: 3 views thoracic spine, 3 views lumbar spine, 2 views right hip, 3 views each hand, 4 views left shoulder. FINDINGS: THORACIC AND LUMBAR SPINE: There is a mild biconvex thoracolumbar scoliosis present. Some minimal disc space narrowing is noted in the thoracic spine. No marked degenerative changes are seen. Soft tissue density seen at the diaphragmatic hiatus consistent with a hiatal hernia that is seen on prior CT exams. Marked degenerative changes are present in the lumbar spine at T12-L1 and L1-L2 with near-obliteration of disc spaces. There has been surgical fixation with posterior pedicular screws and interbody device at L4-L5 where there is a grade 1 anterolisthesis. No acute fractures or bony destructive lesions are seen. RIGHT HIP: No significant bone, joint or soft tissue abnormality is seen. RIGHT HAND: The 4th and 5th metacarpals are slightly small. Degenerative changes are seen at the SENIOR CARE joints predominantly at the 1st and 5th digit. Degenerative changes are also seen at the interphalangeal joints most marked at the 3rd PIP joint. Degenerative changes are seen at the 3rd metacarpophalangeal joint. No fractures. No chondrocalcinosis. LEFT HAND: Minimal degenerative changes are seen at the PIP joint of the 3rd digit and the MCP joint of the 3rd digit. Degenerative changes are also present at the 1st SENIOR CARE joint at the base of the thumb. No fractures or chondrocalcinosis. LEFT SHOULDER: There are mild degenerative changes at the AC joint as well as at the inferior aspect of the glenohumeral joint where there are some mild osteophytes. No abnormal tendinous calcification. No fractures. XR/XR hand LT 2V IMPRESSION: 1. Convex thoracolumbar scoliosis with degenerative changes from T12 to L2 and postop change at L4-L5 with grade 1 anterolisthesis. 2. Normal-appearing right hip. 3. Degenerative changes in both hands and shoulders as described above.
--- NOTE | ~2022-10-04 | XR_ITS ---
EXAMINATION: XR THORACIC SPINE XR LUMBAR SPINE XR HAND, BILATERAL XR HIP, RIGHT XR SHOULDER, LEFT CLINICAL INFORMATION: Shoulder, hip, hand, low back and thoracic spine pain. COMPARISON: Lumbar spine 05/01/2020, thoracic spine 11/11/2015, CT abdomen and pelvis 01/14/2021. TECHNIQUE: 3 views thoracic spine, 3 views lumbar spine, 2 views right hip, 3 views each hand, 4 views left shoulder. FINDINGS: THORACIC AND LUMBAR SPINE: There is a mild biconvex thoracolumbar scoliosis present. Some minimal disc space narrowing is noted in the thoracic spine. No marked degenerative changes are seen. Soft tissue density seen at the diaphragmatic hiatus consistent with a hiatal hernia that is seen on prior CT exams. Marked degenerative changes are present in the lumbar spine at T12-L1 and L1-L2 with near-obliteration of disc spaces. There has been surgical fixation with posterior pedicular screws and interbody device at L4-L5 where there is a grade 1 anterolisthesis. No acute fractures or bony destructive lesions are seen. RIGHT HIP: No significant bone, joint or soft tissue abnormality is seen. RIGHT HAND: The 4th and 5th metacarpals are slightly small. Degenerative changes are seen at the USP joints predominantly at the 1st and 5th digit. Degenerative changes are also seen at the interphalangeal joints most marked at the 3rd PIP joint. Degenerative changes are seen at the 3rd metacarpophalangeal joint. No fractures. No chondrocalcinosis. LEFT HAND: Minimal degenerative changes are seen at the PIP joint of the 3rd digit and the MCP joint of the 3rd digit. Degenerative changes are also present at the 1st USP joint at the base of the thumb. No fractures or chondrocalcinosis. LEFT SHOULDER: There are mild degenerative changes at the AC joint as well as at the inferior aspect of the glenohumeral joint where there are some mild osteophytes. No abnormal tendinous calcification. No fractures. XR/XR hand RT 2V IMPRESSION: 1. Convex thoracolumbar scoliosis with degenerative changes from T12 to L2 and postop change at L4-L5 with grade 1 anterolisthesis. 2. Normal-appearing right hip. 3. Degenerative changes in both hands and shoulders as described above.
--- NOTE | ~2022-10-04 | XR_ITS ---
EXAMINATION: XR THORACIC SPINE XR LUMBAR SPINE XR HAND, BILATERAL XR HIP, RIGHT XR SHOULDER, LEFT CLINICAL INFORMATION: Shoulder, hip, hand, low back and thoracic spine pain. COMPARISON: Lumbar spine 05/01/2020, thoracic spine 11/11/2015, CT abdomen and pelvis 01/14/2021. TECHNIQUE: 3 views thoracic spine, 3 views lumbar spine, 2 views right hip, 3 views each hand, 4 views left shoulder. FINDINGS: THORACIC AND LUMBAR SPINE: There is a mild biconvex thoracolumbar scoliosis present. Some minimal disc space narrowing is noted in the thoracic spine. No marked degenerative changes are seen. Soft tissue density seen at the diaphragmatic hiatus consistent with a hiatal hernia that is seen on prior CT exams. Marked degenerative changes are present in the lumbar spine at T12-L1 and L1-L2 with near-obliteration of disc spaces. There has been surgical fixation with posterior pedicular screws and interbody device at L4-L5 where there is a grade 1 anterolisthesis. No acute fractures or bony destructive lesions are seen. RIGHT HIP: No significant bone, joint or soft tissue abnormality is seen. RIGHT HAND: The 4th and 5th metacarpals are slightly small. Degenerative changes are seen at the HALF-WAY joints predominantly at the 1st and 5th digit. Degenerative changes are also seen at the interphalangeal joints most marked at the 3rd PIP joint. Degenerative changes are seen at the 3rd metacarpophalangeal joint. No fractures. No chondrocalcinosis. LEFT HAND: Minimal degenerative changes are seen at the PIP joint of the 3rd digit and the MCP joint of the 3rd digit. Degenerative changes are also present at the 1st HALF-WAY joint at the base of the thumb. No fractures or chondrocalcinosis. LEFT SHOULDER: There are mild degenerative changes at the AC joint as well as at the inferior aspect of the glenohumeral joint where there are some mild osteophytes. No abnormal tendinous calcification. No fractures. XR/XR lumbar spine 2-3V IMPRESSION: 1. Convex thoracolumbar scoliosis with degenerative changes from T12 to L2 and postop change at L4-L5 with grade 1 anterolisthesis. 2. Normal-appearing right hip. 3. Degenerative changes in both hands and shoulders as described above.
--- NOTE | ~2022-10-04 | XR_ITS ---
EXAMINATION: XR THORACIC SPINE XR LUMBAR SPINE XR HAND, BILATERAL XR HIP, RIGHT XR SHOULDER, LEFT CLINICAL INFORMATION: Shoulder, hip, hand, low back and thoracic spine pain. COMPARISON: Lumbar spine 05/01/2020, thoracic spine 11/11/2015, CT abdomen and pelvis 01/14/2021. TECHNIQUE: 3 views thoracic spine, 3 views lumbar spine, 2 views right hip, 3 views each hand, 4 views left shoulder. FINDINGS: THORACIC AND LUMBAR SPINE: There is a mild biconvex thoracolumbar scoliosis present. Some minimal disc space narrowing is noted in the thoracic spine. No marked degenerative changes are seen. Soft tissue density seen at the diaphragmatic hiatus consistent with a hiatal hernia that is seen on prior CT exams. Marked degenerative changes are present in the lumbar spine at T12-L1 and L1-L2 with near-obliteration of disc spaces. There has been surgical fixation with posterior pedicular screws and interbody device at L4-L5 where there is a grade 1 anterolisthesis. No acute fractures or bony destructive lesions are seen. RIGHT HIP: No significant bone, joint or soft tissue abnormality is seen. RIGHT HAND: The 4th and 5th metacarpals are slightly small. Degenerative changes are seen at the FCI joints predominantly at the 1st and 5th digit. Degenerative changes are also seen at the interphalangeal joints most marked at the 3rd PIP joint. Degenerative changes are seen at the 3rd metacarpophalangeal joint. No fractures. No chondrocalcinosis. LEFT HAND: Minimal degenerative changes are seen at the PIP joint of the 3rd digit and the MCP joint of the 3rd digit. Degenerative changes are also present at the 1st FCI joint at the base of the thumb. No fractures or chondrocalcinosis. LEFT SHOULDER: There are mild degenerative changes at the AC joint as well as at the inferior aspect of the glenohumeral joint where there are some mild osteophytes. No abnormal tendinous calcification. No fractures. XR/XR hip RT min 2V IMPRESSION: 1. Convex thoracolumbar scoliosis with degenerative changes from T12 to L2 and postop change at L4-L5 with grade 1 anterolisthesis. 2. Normal-appearing right hip. 3. Degenerative changes in both hands and shoulders as described above.
== END 2022-10-04 12:42 | disposition home or self-care (01) ==
LOC: HO.XRAY 12:41
PROVIDERS: PCP Internal Medicine; Visit Provider Internal Medicine
DX: M25.512 Pain in left shoulder (principal); M25.551 Pain in right hip; M79.641 Pain in right hand; M79.642 Pain in left hand; M54.6 Pain in thoracic spine; M47.816 Spondylosis without myelopathy or radiculopathy, lumbar region
CPT/HCPCS: 72070; 72100; 73030; 73120; 73502

== ENCOUNTER 2022-11-23 14:09 | Outpatient (REF) | payer MEDICARE, MEDICAID, SELFPAY ==
--- NOTE | ~2022-11-23 | MR_ITS ---
EXAMINATION: MRI LEFT SHOULDER WITHOUT CONTRAST CLINICAL INFORMATION: Left shoulder pain, bursitis COMPARISON: Radiographs 10/04/2022 TECHNIQUE: MRI of the shoulder without contrast is performed on a 1.5 Tiara high-field scanner. FINDINGS: ROTATOR CUFF: Supraspinatus tendinosis with mild undersurface fraying of the anterior leading edge. There is ill-defined partial tearing of the subscapularis tendon insertion involving the bursal surface fibers superiorly. The infraspinatus and teres minor tendons appear intact. No muscle atrophy or fatty infiltration. BICEPS: The biceps tendon is completely torn and retracted. CORACOACROMIAL ARCH: The undersurface of the acromion is curved with slight lateral downsloping and anterior spurring. Mild acromioclavicular osteoarthritis. LABRUM/CAPSULE: No definite labral tear. GLENOHUMERAL JOINT/MARROW: Near full-thickness cartilage loss along the inferior glenoid with small subchondral cysts. Mild degenerative spurring of the greater tuberosity with a degenerative cyst posteriorly. Small joint effusion with mild synovitis. ADDITIONAL FINDINGS: None. MR/MR shoulder LT wo con IMPRESSION: 1. Completely torn and retracted biceps tendon. 2. Supraspinatus tendinosis with mild undersurface fraying anteriorly. 3. Ill-defined partial tearing of the subscapularis tendon insertion involving the bursal surface fibers superiorly. 4. Mild acromioclavicular and glenohumeral osteoarthritis with a small joint effusion.
== END 2022-11-23 14:10 | disposition home or self-care (01) ==
LOC: HO.MRI 14:09
PROVIDERS: Visit Provider Internal Medicine
DX: M75.52 Bursitis of left shoulder (principal)
CPT/HCPCS: 73221

== ENCOUNTER → 2022-11-29 13:05 | Outpatient (BNVA) | payer MEDICARE, MEDICAID, SELFPAY | PROVIDERS: PCP Internal Medicine; Visit Provider Orthopaedic Surgery | DX: M75.102 Unspecified rotator cuff tear or rupture of left shoulder, not specified as traumatic (principal); M12.812 Other specific arthropathies, not elsewhere classified, left shoulder; S46.212A Strain of muscle, fascia and tendon of other parts of biceps, left arm, initial encounter | CPT/HCPCS: 20610; 99212; J1100 ==

== ENCOUNTER → 2023-03-10 13:27 | Outpatient (BNVA) | payer MEDICARE, MEDICAID, SELFPAY | PROVIDERS: PCP Internal Medicine; Referring Provider Internal Medicine; Visit Provider Internal Medicine | DX: I25.5 Ischemic cardiomyopathy (principal); I25.10 Atherosclerotic heart disease of native coronary artery without angina pectoris; I49.3 Ventricular premature depolarization | CPT/HCPCS: 99212 ==

== ENCOUNTER 2023-06-22 14:40 | Outpatient (AMB) | payer OTHER, MEDICAID, SELFPAY ==
--- NOTE | 2023-06-22 14:56 | MHC.OFFVIS ---
Intake Intake Visit Reasons: 1y follow up Intake Note: Patient is present for Follow Up Urology Med: Sildenafil, Antibiotic Allergy:none Blood Thinner: Aspirin Pharmacy: [facility] Allergies codeine [CODEINE] Allergy (Intermediate, Verified 06/22/23 14:57) nausea trazodone [TRAZODONE] Allergy (Intermediate, Verified 06/22/23 14:57) SHORTNESS OF BREATH lactose [LACTOSE] Adverse Reaction (Intermediate, Verified 06/22/23 14:57) upset stomach HPI HPI Comments History of Present Illness Details Aly is a pleasant male. PCP is unlisted. He seen for the following urologic conditions - lower urinary tract symptoms - erectile dysfunction Has had right groin pain On exam Has inguinal disruption from twisting Already taking ibuprofen Secondary issue is noticing weakness of stream Prior laser prostatectomy 7 years ago Recommend check cystoscopy in office Lower urinary tract symptoms Doing well with minimum symptoms PVR today 0 Laser prostatectomy 2016 Labs - 02/08 PSA 0.16 PFSH Medical History Anemia Anxiety Cardiomyopathy Diverticulosis Esophageal hernia GERD (gastroesophageal reflux disease) Hx of hepatitis C Insomnia Left hip pain Lumbar degenerative disc disease Lumbar pain Orchalgia Post-op pain Renal calculi Right foot pain Right shoulder pain Skin lesion Smoker Surgical History H/O hand surgery History of back surgery History of esophagogastroduodenoscopy (EGD) History of mandibular surgery History of repair of laceration History of sinus surgery Hx of colonoscopy Hx of shoulder surgery Family History Father Prostate cancer Mother Colon cancer Brother Prostate cancer Family/Other FH: mental illness Sister Chronic mental illness Social History Household Members: None Housing: Apartment Housing Other:: rents a room Are you a primary care navigator to a significant other at home: No Do you presently have visiting nurse or other home services: No Alcohol intake: former Patient Tobacco Use Status: Former Tobacco user Quit Date: 03/08/2022 Cigarettes Per Day: 2 Years Smoked: 15 e-Cigarette/Vaping Use: Never Used Second Hand Smoke Exposure: No service: No Current occupational status: disabled Cognitive needs: No Hearing needs: No Vision needs: Yes Review of Systems Const Denies chills and Denies fever(s) Card Reports no additional complaints and Denies syncope Resp Denies cough GI Denies abdominal pain and Denies heartburn Reports as per HPI and Denies change in libido Neuro Denies syncope Psych Denies change in libido Endo Denies change in libido Physical Exam Const General: cooperative, healthy appearing, comfortable and no acute distress Orientation/consciousness: patient oriented x3 HEENT Face and sinus: Yes normal facial exam Mouth: moist mucous membranes Neck Neck: Yes normal visual inspection, Yes full ROM and Yes trachea midline Chest Chest palpation & inspection: normal inspection of the chest Resp Effort & Inspection: normal respiratory effort, able to speak in complete sentences and no respiratory distress GI Inspection: Yes normal to inspection Back/Spine/Pelvis Cervical Spine: normal cervical lordosis Thoracic/Lumbar Spine: thoracic and lumbar spine normal to inspection Skin General skin exam: no rashes or lesions noted Neuro General: patient oriented x3, gait normal, tone normal and moves all extremities Extrem General: Yes normal to inspection and Yes capillary refill normal Assessment & Plan Assessment & Plan (1) Erectile dysfunction due to arterial insufficiency: Code(s): N52.01 - Erectile dysfunction due to arterial insufficiency (2) Bladder outlet obstruction: Code(s): N32.0 - Bladder-neck obstruction Plan Office cystoscopy Patient Instructions: Imaging studies, laboratory and physical exam results were discussed and reviewed in detail. No major barriers to patient understanding were identified. An opportunity to ask questions regarding the treatment plan was provided. All questions were answered. The patient expressed understanding and agreement with the above treatment plan. The patient is aware they should contact our office by phone for worsening of their current condition or the appearance of new urologic symptoms. Compliance is encouraged with any medications and followup testing that is ordered. It is a privilege to participate in the urologic care of your patient. If you have any questions or concerns regarding treatment for the above conditions, or other urologic issues, please do not hesitate to contact me. The office telephone contact is [phone]. This note is constructed using voice recognition software. While every effort has been made to ensure accuracy filler and trimmer errors may have been included. Yours sincerely, Dr Zach Perez MD, [facility] - Urology Providers of Expert, Compassionate Care for the Genitourinary System Quality Reporting (2020) Adult ([facility] 138/01/12/69) Smoking risk assessment performed?: Yes Patient Tobacco Use Status: Former Tobacco user Coding Level of Care Code Est Pt Level 4 (80191) Diagnoses Erectile dysfunction due to arterial insufficiency N52.01 Bladder outlet obstruction N32.0
== END 2023-06-22 15:34 | disposition home or self-care (01) ==
PROVIDERS: PCP Internal Medicine; Visit Provider Urology
DX: N52.01 Erectile dysfunction due to arterial insufficiency (principal); N32.0 Bladder-neck obstruction
CPT/HCPCS: 99214

== ENCOUNTER → 2023-06-22 14:40 | Outpatient (BNVA) | payer OTHER, MEDICAID, SELFPAY | PROVIDERS: PCP Internal Medicine; Visit Provider Urology | DX: N52.01 Erectile dysfunction due to arterial insufficiency (principal); N32.0 Bladder-neck obstruction | CPT/HCPCS: 99212 ==

== ENCOUNTER 2023-08-16 13:52 | Outpatient (AMB) | payer OTHER, SELFPAY ==
[2023-08-16 13:56] VITALS: BP 124/70; BMI 30.2
--- NOTE | 2023-08-16 13:56 | MHC.PC.OV ---
Vital Signs 08/16/23 13:56 Height 5 ft 6 in Weight 187 lb BMI 30.2 BP 124/70 Blood Pressure Location Lt brachial Position Sitting Intake Visit Reasons: Annual Exam Intake Note: Patient here for a physical exam Meat Soaker Required: No Accompanied by: Self / Same As Patient Allergies codeine [CODEINE] Allergy (Intermediate, Verified 08/16/23 14:15) nausea trazodone [TRAZODONE] Allergy (Intermediate, Verified 08/16/23 14:15) SHORTNESS OF BREATH lactose [LACTOSE] Adverse Reaction (Intermediate, Verified 08/16/23 14:15) upset stomach Medication List - Last Reconciled 08/16/23 by Laurel Dubon MD aspirin (Adult Low Dose Aspirin) 81 mg PO DAILY 90 days back brace As directed baclofen 20 mg PO BEDTIME PRN 30 days cane As directed docusate sodium 100 mg PO .BID 90 days hydrocortisone 1% (Anti-Itch (hydrocortisone)) 1 appl topical BID PRN 30 days loratadine (Allergy Relief (loratadine)) 10 mg PO DAILY lorazepam 1 mg PO .four times a day PRN 30 days metoprolol succinate ER 25 mg PO DAILY multivitamin (One Daily Multivitamin tablet) 1 tab PO DAILY naproxen 500 mg PO BID PRN 30 days nirmatrelvir-ritonavir 300 mg (150 mg x 2)-100 mg (Paxlovid) 3 ea PO PER PKG DIR 5 days omeprazole 40 mg PO DAILY 90 days psyllium husk (aspartame) 3 gram/5.8 gram (Reguloid (aspartame)) 1 ea PO BID rosuvastatin 20 mg PO DAILY sacubitril-valsartan 24-26 mg (Entresto) 1 tab PO BID 90 days Shower Chair As directed sildenafil 100 mg PO ONCE PRN 30 days thiamine HCl (vitamin B1) 100 mg PO DAILY Tobacco use date assessed: 03/16/23 Fall risk assessment: No Falls in past year Last assessed Fall Risk: 08/16/23 Dental Screening Dental Screen Date: 08/16/23 Did you have a dental visit in the last 12 months?: No Did you have a dental problem in the last 6 months where you did not have access to dental care?: No Was dental information given to patient?: Patient has dentist HPI HPI Comments History of Present Illness Details This is a 67-year-old male with cardiomyopathy that comes for his physical exam. He is compliant with medications and denies any chest pain or shortness of breath. No leg swelling. Last echocardiogram was done 2021 showing ejection fraction of 45-50% and this is follow by cardiology. Last colonoscopy was 2020 showing tubular adenomas. Has also lumbar degenerative disc disease with chronic back pain and is not able to lift over 20 lb. He is not able to work. Gets fatigue and tired with minimal exertion most likely secondary to cardiomyopathy. Also has anxiety stable with benzodiazepines as needed and he is aware that this can cause addiction, sedation and memory loss. [facility] Medical History (Updated 08/16/23 @ 14:31 by Laurel Dubon MD) Lumbar degenerative disc disease Cardiomyopathy Renal calculi Right shoulder pain Lumbar pain Right foot pain Left hip pain Skin lesion Esophageal hernia Hx of hepatitis C Orchalgia Anemia Post-op pain Smoker Insomnia GERD (gastroesophageal reflux disease) Diverticulosis Anxiety Surgical History Hx of shoulder surgery History of esophagogastroduodenoscopy (EGD) Hx of colonoscopy History of back surgery History of mandibular surgery History of repair of laceration History of sinus surgery H/O hand surgery Family History Father Prostate cancer Mother Colon cancer Brother Prostate cancer Family/Other FH: mental illness Sister Chronic mental illness Social History Household Members: None Housing: Apartment Housing Other:: rents a room Are you a primary home health aide caregiver to a significant other at home: No Do you presently have visiting nurse or other home services: No Alcohol intake: former Patient Tobacco Use Status: Former Tobacco user Quit Date: 03/08/2022 Cigarettes Per Day: 2 Years Smoked: 15 e-Cigarette/Vaping Use: Never Used Second Hand Smoke Exposure: No service: No Current occupational status: disabled Cognitive needs: No Hearing needs: No Vision needs: Yes Questionnaire Thrive Questionnaire Date Thrive assessed: 03/16/23 DENIS-7 AMB Questionnaire DENIS-7 Date DENIS - 7 assessed: 03/16/23 Source: Developed by Drs. Adrian Gunderson, Kecia Flowers, Americo Ling and colleagues, with an educational parish from [employer]. Review of Systems Const All systems reviewed & are unremarkable except as noted in HPI and below Eyes Reports no additional complaints, Denies change in vision and Denies other visual disturbances Card Denies chest pain at rest, Denies chest pain with activity, Denies edema, Denies irregular heart rhythm, Denies claudication, Denies dyspnea, Denies dyspnea on exertion, Denies orthopnea, Denies paroxysmal nocturnal dyspnea and Denies slow heart rate Resp Denies cough, Denies dyspnea and Denies dyspnea on exertion GI Denies abdominal pain, Denies change in bowel habits, Denies excessive flatus, Denies nausea and Denies vomiting Denies urinary hesitancy, Denies urinary incontinence and Denies urinary urgency Musc Denies abnormal gait, Denies atrophy, Denies deformity and Denies limited range of motion Skin/Breast Denies bleeding lesions, Denies changing lesions and Denies rash Neuro Denies abnormal gait and Denies lack of coordination Physical exam (Primary Care) Vital Signs: Last Vital Signs BP 124/70 08/16/23 13:56 BMI result Body Mass Index 30.2 Tobacco/Smoking Status: Tobacco use Status Tobacco use date assessed 03/16/23 08/16/23 14:00 Patient Tobacco Use Status Former Tobacco user 08/16/23 14:00 Tobacco use type 03/10/23 14:21 e-Cigarette/Vaping Use Never Used 08/16/23 14:00 Thrive Assessment: Date of Thrive Assessment Date Thrive assessed 03/16/23 08/16/23 14:00 Const Orientation/consciousness: patient oriented x3 [facility] Head: Yes normal to inspection, Yes normocephalic and Yes atraumatic Ears: external ears normal Eyes General: appearance normal, both eyes and all related structures Eyelids: Yes eyelids normal Conjunctivae: conjunctivae normal Neck Neck: Yes normal visual inspection and Yes supple Resp Effort & Inspection: normal respiratory effort Auscultation: clear to auscultation bilaterally Cardio Jugular venous distension: no JVD Rate: regular rate Rhythm: regular rhythm Heart sounds: S1 normal heart sound present and S2 normal heart sound present GI Inspection: Yes normal to inspection Palpation (GI): Soft to palpation and nontender Auscultation: normal bowel sounds Skin General skin exam: no rashes or lesions noted Neuro General: patient oriented x3 and no focal motor deficits Extrem General: Yes full ROM Psych Appearance: grossly normal Assessment and Plan Assessment & Plan (1) Physical exam: Code(s): Z00.00 - Encounter for general adult medical examination without abnormal findings Plan: Repeat in a year. (2) Cardiomyopathy: Code(s): I42.9 - Cardiomyopathy, unspecified Plan: Continue carvedilol. Repeat echocardiogram. Follow-up with Cardiology. The goal is to not gain 5 lb in a week. Orders: Orders Lipid Panel Today E78.5 - Hyperlipidemia, unspecified Comprehensive [employer]. Panel Fast Today I42.9 - Cardiomyopathy, unspecified NT-proBNP Today I42.9 - Cardiomyopathy, unspecified FL upper GI series Today K21.9 - Gastro-esophageal reflux disease without esophagitis CA echo transthoracic complete Today I42.9 - Cardiomyopathy, unspecified Coding Level of Care Code Est Pt Prev Care >65y(90970) Diagnoses Physical exam Z00.00 Cardiomyopathy I42.9 Time Spent (min) 32
== END 2023-08-16 14:25 | disposition home or self-care (01) ==
PROVIDERS: Visit Provider Internal Medicine
DX: Z00.00 Encounter for general adult medical examination without abnormal findings (principal); I42.9 Cardiomyopathy, unspecified
CPT/HCPCS: 99397

== ENCOUNTER 2023-09-09 12:59 | Outpatient (AMB) | payer OTHER, SELFPAY ==
--- NOTE | 2023-09-09 13:02 | MHC.OFFVIS ---
Intake Intake Visit Reasons: cysto Intake Note: Patient is Present for Cystoscopy Urology Med: Sildenafil Antibiotic Allergy: None Blood Thinner: Aspirin Pharmacy: [facility] Cystoscope lot:[id number] exp:04/03/2025 Allergies codeine [CODEINE] Allergy (Intermediate, Verified 08/16/23 14:15) nausea trazodone [TRAZODONE] Allergy (Intermediate, Verified 08/16/23 14:15) SHORTNESS OF BREATH lactose [LACTOSE] Adverse Reaction (Intermediate, Verified 08/16/23 14:15) upset stomach HPI HPI Comments History of Present Illness Details Aly is a pleasant male. PCP is unlisted. He seen for the following urologic conditions - lower urinary tract symptoms - erectile dysfunction Check cystoscopy today Open bladder neck Has urinary hesitancy Trial alpha-ramses Lives in sober house Has difficulty with urine samples May need letter encouraging oral swab Lower urinary tract symptoms Doing well with minimum symptoms PVR today 0 Laser prostatectomy 2016 Labs - 02/08 PSA 0.16 PFSH Medical History Lumbar degenerative disc disease Cardiomyopathy Renal calculi Right shoulder pain Lumbar pain Right foot pain Left hip pain Skin lesion Esophageal hernia Hx of hepatitis C Orchalgia Anemia Post-op pain Smoker Insomnia GERD (gastroesophageal reflux disease) Diverticulosis Anxiety Surgical History Hx of shoulder surgery History of esophagogastroduodenoscopy (EGD) Hx of colonoscopy History of back surgery History of mandibular surgery History of repair of laceration History of sinus surgery H/O hand surgery Family History Father Prostate cancer Mother Colon cancer Brother Prostate cancer Family/Other FH: mental illness Sister Chronic mental illness Social History Household Members: None Housing: Apartment Housing Other:: rents a room Are you a primary lawn care specialist to a significant other at home: No Do you presently have visiting nurse or other home services: No Alcohol intake: former Patient Tobacco Use Status: Former Tobacco user Quit Date: 03/08/2022 Cigarettes Per Day: 2 Years Smoked: 15 e-Cigarette/Vaping Use: Never Used Second Hand Smoke Exposure: No service: No Current occupational status: disabled Cognitive needs: No Hearing needs: No Vision needs: Yes Office Procedures Cystoscopy Consent Discussed risk and benefit or proposed procedure with the patient. Information consent for procedure given to the patient. Discussed technical aspects, risks, benefits and alternatives in full. Addressed all of the patient's questions and concerns regarding the procedure. The patient demonstrated knowledge and understanding. They wish to proceed with this procedure. Preparation The patient was prepped in the usual manner. A acquisition analyst was present and in the room. Genitalia was prepped with betadine solution in a sterile manner. Lidocaine Jelly 2% was placed into the urethra and 16Fr flexible Olympus cystoscope was inserted into the meatus after adequate lubrication. Procedure Meatus circumcised Urethra anterior posterior urethra normal Prostatic Urethra TURP defect Bladder examination with retroflexion of cystoscope Bladder Orifices normal shape and position Bladder Capacity - Trabeculations - Cellule Formation - Diverticulum Formation - Mucosal Erythema - Bladder Tumor - 84032-[id number] DISPOSABLE SCOPE URO-G FLEXIBLE SCOPE Procedure code (CPT) selection complete Office Meds lidocaine HCl 2 % mucosal jelly in applicator Performing Provider: Zach Perez MD Performing Location: [facility] Administered by: Cinthya Luciano RN on 09/09/23 13:20 Dose Route Admin Location Dispensed Lot Number Expiration Date NDC Internal Audit Manager 10 mL intra-urethral 10 mL nitrofurantoin monohydrate/macrocrystals 100 mg capsule Performing Provider: Zach Perez MD Performing Location: [facility] Administered by: Cinthya Luciano RN on 09/09/23 13:20 Dose Route Admin Location Dispensed Lot Number Expiration Date NDC Internal Audit Manager 100 mg PO 1 cap naproxen 500 mg tablet Performing Provider: Zach Perez MD Performing Location: [facility] Administered by: Cinthya Luciano RN on 09/09/23 13:20 Dose Route Admin Location Dispensed Lot Number Expiration Date NDC Internal Audit Manager 500 mg PO 1 tab Assessment & Plan Assessment & Plan (1) Bladder outlet obstruction: Code(s): N32.0 - Bladder-neck obstruction Plan Trial alpha-ramses Orders: Orders AMB Urinalysis Automated Today Z13.9 - Encounter for screening, unspecified AMB Cystoscopy Today N32.0 - Bladder-neck obstruction Medications: New terazosin 5 mg PO BEDTIME 30 caps 1RF 30 days N32.0 - Bladder-neck obstruction, N40.1 - Benign prostatic hyperplasia with lower urinary tract symptoms, R35.0 - Frequency of micturition Patient Instructions: Imaging studies, laboratory and physical exam results were discussed and reviewed in detail. No major barriers to patient understanding were identified. An opportunity to ask questions regarding the treatment plan was provided. All questions were answered. The patient expressed understanding and agreement with the above treatment plan. The patient is aware they should contact our office by phone for worsening of their current condition or the appearance of new urologic symptoms. Compliance is encouraged with any medications and followup testing that is ordered. It is a privilege to participate in the urologic care of your patient. If you have any questions or concerns regarding treatment for the above conditions, or other urologic issues, please do not hesitate to contact me. The office telephone contact is [phone]. This note is constructed using voice recognition software. While every effort has been made to ensure accuracy portfolio assistant errors may have been included. Yours sincerely, Dr Zach Perez MD, [facility] - Urology Providers of Expert, Compassionate Care for the Genitourinary System Quality Reporting (2019) Adult ([facility] 138/01/[birth year]) Smoking risk assessment performed?: Yes Patient Tobacco Use Status: Former Tobacco user Coding Level of Care Code Est Pt Level 4 (84054) Diagnoses Bladder outlet obstruction N32.0 CPT Codes Cystoscopy - CPT: 42652-Tqjeralprv ([id number])
== END 2023-09-09 13:37 | disposition home or self-care (01) ==
PROVIDERS: PCP Internal Medicine; Visit Provider Urology
DX: R39.11 Hesitancy of micturition (principal); N32.0 Bladder-neck obstruction
CPT/HCPCS: 52000; 99214

== ENCOUNTER 2023-09-09 12:59 | Outpatient (REF) | payer OTHER, SELFPAY ==
[2023-09-09 14:56] LABS: Alanine Aminotransferase 26 U/L (0-40); Albumin Level 4.3 g/dL (3.5-5.0); Alkaline Phosphatase 48 U/L (39-117); Anion Gap 13 (12-20); Aspartate Amino Transferase 34 U/L (5-37); Bilirubin Total 0.5 mg/dL (0.0-1.0); Blood Urea Nitrogen 12 mg/dL (9-16); Calcium 9.7 mg/dL (8.4-10.2); Carbon Dioxide 25 mmol/L (22-29); Chloride 105 mmol/L (96-108); Cholesterol 112 mg/dL (<200); Estimated Glomerular Filt Rate > 60; Glucose Fasting 86 mg/dL (60-99); HDL Cholesterol 58 mg/dL (>40); LDL Cholesterol Calculated 46 mg/dL (<100); Potassium 4.2 mmol/L (3.3-5.1); Sodium 139 mmol/L (135-145); Total Protein 7.3 g/dL (6.5-8.0); Triglycerides 42 mg/dL (<150)
[2023-09-14 14:18] LABS: NT-proBNP 66 pg/mL (<125)
== END 2023-09-09 13:00 | disposition home or self-care (01) ==
LOC: HO.LAB 12:59
PROVIDERS: Absent Provider Internal Medicine; PCP Internal Medicine; Visit Provider Urology
DX: N32.0 Bladder-neck obstruction (principal); I42.9 Cardiomyopathy, unspecified; E78.5 Hyperlipidemia, unspecified; Z12.5 Encounter for screening for malignant neoplasm of prostate
CPT/HCPCS: 36415; 52000; 80053; 80061; 83880; 84153; 99212

== ENCOUNTER → 2023-09-20 13:34 | Outpatient (REF) | payer OTHER, SELFPAY ==
--- NOTE | 2023-09-20 13:36 | CA_ITS ---
Transthoracic Echocardiogram Patient (Last, First, Middle): Peewee Moralez, Gender: Male Date of : 1955 Age: 67 Procedure Date: 09/20/2023 Procedure Type: Transthoracic Echocardiogram Location: OP Height: 167.64 cm Weight: 81.65 kg BSA: 1.91 m2 Heart Rate: bpm BP: 125 / 70 mmHg Technical Project Lead: [email or web address] Referring MD: Laurel Dubon MD Symptoms: I42.9 - Cardiomyopathy, unspecified Study Quality: Adequate Conclusions: - The left ventricular systolic function is mildly decreased. The visually estimated ejection fraction is between 45-50%. - The inferolateral wall and basal inferior segment are akinetic. - Moderately increased right ventricular cavity size. - No obvious valvular pathology seen on this study. Findings Left Ventricle Normal left ventricular cavity size. There is mildly increased left ventricular wall thickness. The left ventricular systolic function is mildly decreased. The visually estimated ejection fraction is between 45-50%. There is evidence of regional wall motion abnormalities. Diastolic function is normal for age. LV peak GLS -16.7%. Wall Motion Rest Echo Findings The inferolateral wall and basal inferior segment are akinetic. Right Ventricle Moderately increased right ventricular cavity size. There is normal right ventricular systolic function. Atria The left atrium is severely dilated. The right atrium is moderately dilated. Aortic Valve There is a normal trileaflet aortic valve. There is no aortic valve stenosis. There is mild aortic valve regurgitation. Mitral Valve The mitral valve appears normal. There is trace mitral valve regurgitation. There is no mitral valve stenosis. Pulmonic Valve The pulmonic valve is likely normal. There is trace pulmonic valve regurgitation. Tricuspid Valve Normal tricuspid valve structure. There is mild tricuspid valve regurgitation. Top normal RVSP. Great Vessels The asc aorta is normal in size. Venous The inferior vena cava is mildly dilated and collapses greater than 50% with inspiration. Pericardium/Pleural There is no evidence of pericardial effusion. Prior Study Comparison No significant change compared to prior study dated: 06/16/2022. Recommendations, Care & Conclusions No obvious valvular pathology seen on this study. Measurements 2D Linear Measurements IVSd: 1.12 0.6-0.9/0.6-1.0 cm LVIDd: 4.72 3.9-5.3/4.2-5.9 cm LVIDd Index: 2.47 2.4-3.2/2.2-3.1 cm/m2 LVIDs: 3.61 2.0-3.6 cm LVPWd: 1.13 0.7-1.1 cm LA Diam: 2.90 2.7-3.8/3.0-4.0 cm LAIDs Index: 1.52 1.5-2.3 cm/m2 LV Mass: 242.79 67-162/88-224 g LV Mass Index: 127.12 43-95/49-115 g/m2 LVOT Diam: 2.40 3.0+(-)1.3 cm 2D Systolic Function EF 4C: 60.40 >55% EF 2C: 59.40 >55% EF BiP: 58.80 >55% Mitral Valve MV Pk E: 0.64 MV PK A: 0.62 MV Decel Time: 296.00 E/A: 1.00 E'Lateral: 8.49 E'Medial: 6.85 E/E' Med: 9.30 E/E' Lat: 7.50 PHT: 87.00 MVA PHT: 2.53 Decel Perkins: 2.15 Aortic Valve AoV Pk Konrad: 1.47 AoV Mn Konrad: 0.94 AoV VTI: 0.31 AoV Pk Grad: 9.00 Aov Mn Grad: 4.00 CARY Cont.VTI: 2.79 AI Pk Konrad: 4.19 AI Perkins: 2.22 LVOT LVOT Pk Konrad: 0.94 LVOT Mn Konrad: 0.61 LVOT VTI: 0.19 LVOT Pk Grad: 4.00 LVOT Mn Grad: 2.00 LVOT Diam: 2.40 LVOT Area: 4.52 Diastolic Function MV Pk E: 0.64 MV Pk A: 0.62 E/A: 1.00 E'Medial: 6.85 E/E' Med: 9.30 E' Laterial: 8.49 E/E' Lat: 7.50 Right Ventricle TAPSE (mm): 28.20 TVS' Konrad: 12.40 Tricuspid Valve TR Pk Konrad: 2.81 TR Pk Grad: 32.00 RA Press: 8.00 RVSP: 40.00 Great Vessels Aorta Sinus of Valsalva: 3.35 2.0-3.[address] Ridge: 2.69 1.7-3.4 cm Ao Asc: 3.30 2.1-3.4 cm Updated in Other Vendor System with Status of Final Ken Cummins MD electronically signed on 09/21/2023 11:49:09 AM with status of Final
== END ==
LOC: HO.CARD 13:34
PROVIDERS: PCP Internal Medicine; Visit Provider Internal Medicine
DX: I42.9 Cardiomyopathy, unspecified (principal)
CPT/HCPCS: 93306; 93356

== ENCOUNTER → 2023-09-20 13:36 | Outpatient (BNV) | payer OTHER, SELFPAY | PROVIDERS: PCP Internal Medicine; Visit Provider Internal Medicine | DX: I36.1 Nonrheumatic tricuspid (valve) insufficiency (principal) | CPT/HCPCS: 93306 ==

== ENCOUNTER 2023-11-01 07:40 | Outpatient (REF) | payer OTHER, SELFPAY ==
--- NOTE | ~2023-11-01 | FL_ITS ---
EXAMINATION: XR FLUOROSCOPY UPPER GI WITH AIR CLINICAL INFORMATION: Reflux. Dysphasia COMPARISON: CT scan 12/2020 TECHNIQUE: Fluoroscopic air contrast upper GI examination was performed utilizing standard techniques with thin and thick barium and effervescent granules. Numerous spot images were obtained. FINDINGS: Lateral cine images of the oropharynx and hypopharynx demonstrate normal swallow mechanism with normal epiglottic inversion and soft palate elevation. There is tracheal penetration to the false cords with thick barium on the first swallow. This eventually made its of the glottis and true cords. No gross subglottic aspiration. No nasopharyngeal reflux present. Hypopharyngeal structures appear normal without evidence of mass or diverticulum. There is mild cricopharyngeal achalasia. Dual and single contrast images of the esophagus demonstrate normal caliber, contour, and mucosal pattern. No evidence of stricture, mass, or ulcerations identified. Esophageal peristalsis was normal. The majority of the gastric fundus is intrathoracic. No significant gastroesophageal reflux was seen during the course of the examination and on reflux views. Dual contrast and single contrast images of the stomach demonstrated normal contour without evidence of mass, or ulceration. The gastric mucosa appears thickened represent gastritis. Contrast freely passed into the gastric antrum and duodenal bulb without delay. Single and air-contrast images of the duodenal bulb demonstrate no abnormality. The duodenal sweep has a normal appearance, course, and mucosal fold appearance. The imaged proximal jejunum has a normal fold pattern and caliber. Mandibular fixation plate and screw construct incidentally noted. FLUOROSCOPY TIME: 5 minutes 25 seconds Number of Spot Images: 9 Number of Cine: 10 DOSE AREA PRODUCT: 3390 uGy-m2 (microgray-meter squared) FL/FL upper GI series IMPRESSION: 1. Majority of the gastric fundus is intrathoracic (large paraesophageal hiatus hernia). 2. Thickened gastric mucosal folds, possibly due to underdistention from poor intake effervescent granules. Gastritis is the primary differential. EGD may be of benefit. 3. Laryngeal penetration with thick barium to the level of the true cords. No subglottic aspiration seen. 4. Mild cricopharyngeal achalasia. This procedure was performed by Tony Kennedy PA-C, and supervised by Dr. Jorgensen
== END 2023-11-01 07:41 | disposition home or self-care (01) ==
LOC: HO.XRAY 07:40
PROVIDERS: PCP Internal Medicine; Visit Provider Internal Medicine
DX: K21.9 Gastro-esophageal reflux disease without esophagitis (principal)
CPT/HCPCS: 74240

== ENCOUNTER → 2023-11-01 07:42 | Outpatient (BNV) | payer OTHER, SELFPAY | PROVIDERS: PCP Internal Medicine; Visit Provider Radiology Diagnostic Radiology | DX: K21.9 Gastro-esophageal reflux disease without esophagitis (principal) | CPT/HCPCS: 74246 ==

== ENCOUNTER 2023-11-25 13:36 | Outpatient (AMB) | payer OTHER, SELFPAY ==
--- NOTE | 2023-11-25 13:51 | MHC.OFFVIS ---
Intake Intake Visit Reasons: 2m/PVR Intake Note: Patient is Present for Follow Up Urology Medication: Sildenafil, Terazosin Antibiotic Allergies: None Blood Thinners: Aspirin PVR: 12 Allergies codeine [CODEINE] Allergy (Intermediate, Verified 08/16/23 14:15) nausea trazodone [TRAZODONE] Allergy (Intermediate, Verified 08/16/23 14:15) SHORTNESS OF BREATH lactose [LACTOSE] Adverse Reaction (Intermediate, Verified 08/16/23 14:15) upset stomach HPI HPI Comments History of Present Illness Details Aly is a pleasant male. PCP is unlisted. He seen for the following urologic conditions - lower urinary tract symptoms - erectile dysfunction Follow-up trial of alpha-ramses PVR 12 cc Minimal benefit from alpha-ramses Does have intermittent testicular pain Has mild scarring around epididymis Encourage Naprosyn Lives in sober house Has difficulty with urine samples May need letter encouraging oral swab 12 month follow-up PVR Lower urinary tract symptoms Doing well with minimum symptoms PVR today 0 Laser prostatectomy 2017 Cystoscopy 09/12 open bladder neck Labs - 02/08 PSA 0.16 PFSH Medical History Lumbar degenerative disc disease Cardiomyopathy Renal calculi Right shoulder pain Lumbar pain Right foot pain Left hip pain Skin lesion Esophageal hernia Hx of hepatitis C Orchalgia Anemia Post-op pain Smoker Insomnia GERD (gastroesophageal reflux disease) Diverticulosis Anxiety Surgical History Hx of shoulder surgery History of esophagogastroduodenoscopy (EGD) Hx of colonoscopy History of back surgery History of mandibular surgery History of repair of laceration History of sinus surgery H/O hand surgery Family History Father Prostate cancer Mother Colon cancer Brother Prostate cancer Family/Other FH: mental illness Sister Chronic mental illness Social History Household Members: None Housing: Apartment Housing Other:: rents a room Are you a primary day care provider to a significant other at home: No Do you presently have visiting nurse or other home services: No Alcohol intake: former Patient Tobacco Use Status: Former Tobacco user Quit Date: 03/08/2022 Cigarettes Per Day: 2 Years Smoked: 15 e-Cigarette/Vaping Use: Never Used Second Hand Smoke Exposure: No service: No Current occupational status: disabled Cognitive needs: No Hearing needs: No Vision needs: Yes Review of Systems Const Denies chills and Denies fever(s) Card Reports no additional complaints and Denies syncope Resp Denies cough GI Denies abdominal pain and Denies heartburn Reports as per HPI and Denies change in libido Neuro Denies syncope Psych Denies change in libido Endo Denies change in libido Physical Exam Const General: cooperative, healthy appearing, comfortable and no acute distress Orientation/consciousness: patient oriented x3 HEENT Face and sinus: Yes normal facial exam Mouth: moist mucous membranes Neck Neck: Yes normal visual inspection, Yes full ROM and Yes trachea midline Chest Chest palpation & inspection: normal inspection of the chest Resp Effort & Inspection: normal respiratory effort, able to speak in complete sentences and no respiratory distress GI Inspection: Yes normal to inspection Back/Spine/Pelvis Cervical Spine: normal cervical lordosis Thoracic/Lumbar Spine: thoracic and lumbar spine normal to inspection Skin General skin exam: no rashes or lesions noted Neuro General: patient oriented x3, gait normal, tone normal and moves all extremities Extrem General: Yes normal to inspection and Yes capillary refill normal Office Procedures Post Void Residual Post Residual Void Post Void Residual (PVR): 12 [id number] Void Residual by ultrasound Assessment & Plan Assessment & Plan (1) Bladder outlet obstruction: Code(s): N32.0 - Bladder-neck obstruction Plan Twelve month follow-up PVR Orders: Orders AMB Post Void Residual by ultrasound Today N32.0 - Bladder-neck obstruction Patient Instructions: Imaging studies, laboratory and physical exam results were discussed and reviewed in detail. No major barriers to patient understanding were identified. An opportunity to ask questions regarding the treatment plan was provided. All questions were answered. The patient expressed understanding and agreement with the above treatment plan. The patient is aware they should contact our office by phone for worsening of their current condition or the appearance of new urologic symptoms. Compliance is encouraged with any medications and followup testing that is ordered. It is a privilege to participate in the urologic care of your patient. If you have any questions or concerns regarding treatment for the above conditions, or other urologic issues, please do not hesitate to contact me. The office telephone contact is [phone]. This note is constructed using voice recognition software. While every effort has been made to ensure accuracy pool hall inspector errors may have been included. Yours sincerely, Dr Zach Perez MD, [facility] - Urology Providers of Expert, Compassionate Care for the Genitourinary System Quality Reporting (2019) Adult ([facility] 138/01/12/69) Smoking risk assessment performed?: Yes Patient Tobacco Use Status: Former Tobacco user Coding Level of Care Code Est Pt Level 3 (81219) Diagnoses Bladder outlet obstruction N32.0 CPT Codes Post Residual Void - PVR CPT Code: 85182-Jxoe Void Residual by ultrasound ([id number])
== END 2023-11-25 14:11 | disposition home or self-care (01) ==
PROVIDERS: PCP Internal Medicine; Visit Provider Urology
DX: N32.0 Bladder-neck obstruction (principal)
CPT/HCPCS: 99213

== ENCOUNTER → 2023-11-25 13:36 | Outpatient (BNVA) | payer OTHER, SELFPAY | PROVIDERS: PCP Internal Medicine; Visit Provider Urology | DX: N32.0 Bladder-neck obstruction (principal) | CPT/HCPCS: 51798; 99212 ==

== ENCOUNTER 2023-12-20 14:25 | Outpatient (AMB) | payer OTHER, SELFPAY ==
--- NOTE | 2023-12-20 14:26 | A.OFFPC_ITS ---
Vital Signs 12/20/23 14:27 Height 5 ft 6 in Weight 186 lb BMI 30.0 BP 108/62 Blood Pressure Location Lt brachial Position Sitting Intake Visit Reasons: anxiety Intake Note: Patient here for a follow up Anxiety Crystal Inspector Required: No Accompanied by: Self / Same As Patient Allergies codeine [CODEINE] Allergy (Intermediate, Verified 12/20/23 14:39) nausea trazodone [TRAZODONE] Allergy (Intermediate, Verified 12/20/23 14:39) SHORTNESS OF BREATH lactose [LACTOSE] Adverse Reaction (Intermediate, Verified 12/20/23 14:39) upset stomach Medication List - Last Reconciled 12/20/23 by Laurel Dubon MD aspirin (Adult Low Dose Aspirin) 81 mg PO DAILY 90 days back brace As directed baclofen 20 mg PO BEDTIME PRN 30 days cane As directed hydrocortisone 1% (Anti-Itch (hydrocortisone)) 1 appl topical BID PRN 30 days loratadine (Allergy Relief (loratadine)) 10 mg PO DAILY lorazepam 1 mg PO .four times a day PRN 30 days metoprolol succinate ER 25 mg PO DAILY multivitamin (One Daily Multivitamin tablet) 1 tab PO DAILY naproxen 500 mg PO BID PRN 30 days omeprazole 40 mg PO DAILY 90 days rosuvastatin 20 mg PO DAILY sacubitril-valsartan 24-26 mg (Entresto) 1 tab PO BID 90 days Shower Chair As directed sildenafil 100 mg PO ONCE PRN 30 days Tobacco use date assessed: 12/20/23 Fall risk assessment: No Falls in past year Last assessed Fall Risk: 12/20/23 Dental Screening Dental Screen Date: 12/20/23 Did you have a dental visit in the last 12 months?: Yes Did you have a dental problem in the last 6 months where you did not have access to dental care?: No Was dental information given to patient?: Patient has dentist HPI HPI Comments History of Present Illness Details This is a 68-year-old male with cardiomyopathy, anxiety, GERD and bladder outlet obstruction that comes today for follow-up on his conditions. Last echocardiogram in August 2023 shows ejection fraction of 45-50%. He denies any weight gain of 5 lb in a week and follows with cardiology. Anxiety stable with benzodiazepines as needed which he is aware can cause addiction, sedation and memory loss. GERD still slightly present with omeprazole and had upper GI serious showing achalasia which has an appointment with Gastroenterology in January. Has bladder outlet obstruction follow by Urology and this is why is painful and difficult to urinate. [facility] Medical History (Updated 12/20/23 @ 15:01 by Laurel Dubon MD) Mild depression Lumbar degenerative disc disease Cardiomyopathy Renal calculi Right shoulder pain Lumbar pain Right foot pain Left hip pain Skin lesion Esophageal hernia Hx of hepatitis C Orchalgia Anemia Post-op pain Smoker Insomnia GERD (gastroesophageal reflux disease) Diverticulosis Anxiety Surgical History (Updated 12/20/23 @ 14:49 by Laurel Dubon MD) H/O excision of epidermal inclusion cyst Hx of shoulder surgery History of esophagogastroduodenoscopy (EGD) Hx of colonoscopy History of back surgery History of mandibular surgery History of repair of laceration History of sinus surgery H/O hand surgery Family History Father Prostate cancer Mother Colon cancer Brother Prostate cancer Family/Other FH: mental illness Sister Chronic mental illness Social History Household Members: None Housing: Apartment Housing Other:: rents a room Are you a primary rn patient care to a significant other at home: No Do you presently have visiting nurse or other home services: No Alcohol intake: former Patient Tobacco Use Status: Former Tobacco user Quit Date: 03/08/2022 Cigarettes Per Day: 2 Years Smoked: 15 e-Cigarette/Vaping Use: Never Used Second Hand Smoke Exposure: No service: No Current occupational status: disabled Cognitive needs: No Hearing needs: No Vision needs: Yes Questionnaire PHQ-9 Over the last 2 weeks, how often have you been bothered by any of the following problems? 1. Little interest or pleasure in doing things: not at all 2. Feeling down, depressed, or hopeless: nearly every day 3. Trouble falling or staying asleep, or sleeping too much: nearly every day 4. Feeling tired or having little energy: not at all 5. Poor appetite or overeating: not at all 6. Feeling bad about yourself - or that you are a failure or have let yourself or your family down: not at all 7. Trouble concentrating on things, such as reading the newspaper or watching television: not at all 8. Moving or speaking so slowly that other people could have noticed. Or the opposite - being so fidgety or restless that you have been moving around a lot more than usual: not at all 9. Thoughts that you would be better off or of hurting yourself in some way: not at all Total score: 6 Depression Screening Interpretation: Negative Depression Screening Done: Yes 06361 - PHQ-9 Billing: Yes Source: Developed by Drs. Adrian Gunderson, Kecia Flowers, Americo Ling and colleagues, with an educational parish from [employer] Thrive Questionnaire Date Thrive assessed: 12/20/23 I am a: Patient What is your living situation today?: I have a steady place to live Within the past 12 months, did the food you bought not last and you didn't have the money to get more?: Never true Within the past 12 months, did you worry whether your food would run out before you got money to buy more?: Never true Do you have trouble paying for medicines?: No Do you have trouble getting transportation to medical appointments?: No Do you have trouble paying your heating and electricity bill?: No Do you have trouble taking care of your child, family member or friend?: No Do you have trouble with day-to-day activities such as bathing, preparing meals, shopping, managing finances, etc.?: No Are you currently unemployed and looking for a job?: No Are you interested in more education?: No Please select the resources that you would like help with: None Currently or been in a relationship where the following occur: no concerns reported THRIVE Score: 0 AUDIT C Alcohol Use Questionnaire (AUDIT-C) 1. How often do you have a drink containing alcohol?: Never Total Score: 0 DENIS-7 AMB Questionnaire DENIS-7 Date DENIS - 7 assessed: 12/20/23 Feeling nervous, anxious, or on edge: 3 = Nearly every day Not being able to stop or control worryin = Several days Worrying too much about different things: 3 = Nearly every day Trouble relaxin = Several days Being so restless that it is hard to sit still: 0 = Not at all Becoming easily annoyed or irritable: 1 = Several days Feeling afraid as if something awful might happen: 0 = Not at all Total DENIS-7 score (0-4 normal; 5-9 mild; 10-14 moderate; 15-21 severe): 9 Source: Developed by Drs. Adrian Gunderson, Kecia Flowers, Americo Ling and colleagues, with an educational parish from [employer] DENIS-7 Assessment Billing DENIS-7 Assessment Tool: DENIS-7 Assessment 33787 Review of Systems Const All systems reviewed & are unremarkable except as noted in HPI and below Eyes Reports no additional complaints, Denies change in vision and Denies other visual disturbances Card Denies chest pain at rest, Denies chest pain with activity, Denies edema, Denies irregular heart rhythm, Denies claudication, Denies dyspnea, Denies dyspnea on exertion, Denies orthopnea, Denies paroxysmal nocturnal dyspnea and Denies slow heart rate Resp Denies cough, Denies dyspnea and Denies dyspnea on exertion GI Denies abdominal pain, Denies change in bowel habits, Denies excessive flatus, Denies nausea and Denies vomiting Denies urinary hesitancy, Denies urinary incontinence and Denies urinary urgency Musc Denies abnormal gait, Denies atrophy, Denies deformity and Denies limited range of motion Skin/Breast Denies bleeding lesions, Denies changing lesions and Denies rash Neuro Denies abnormal gait, Denies behavioral changes and Denies lack of coordination Psych Denies behavioral changes Physical exam (Primary Care) Vital Signs: Last Vital Signs BP 108/62 12/20/23 14:27 BMI result Body Mass Index 30.0 Tobacco/Smoking Status: Tobacco use Status Tobacco use date assessed 12/20/23 12/20/23 14:41 Patient Tobacco Use Status Former Tobacco user 12/20/23 14:37 Tobacco use type 11/09/23 10:05 e-Cigarette/Vaping Use Never Used 12/20/23 14:37 PHQ-9: PHQ-9 Score PHQ-9: Total score 6 12/20/23 14:40 Depression Screening Interpretation: Negative Thrive Assessment: Date of Thrive Assessment Date Thrive assessed 12/20/23 12/20/23 14:37 Currently or been in a relationship where the following occur: no concerns reported Eyes General: appearance normal, both eyes and all related structures Eyelids: Yes eyelids normal Conjunctivae: conjunctivae normal Neck Neck: Yes normal visual inspection and Yes supple Resp Effort & Inspection: normal respiratory effort Auscultation: clear to auscultation bilaterally Cardio Jugular venous distension: no JVD Rate: regular rate Rhythm: regular rhythm Heart sounds: S1 normal heart sound present and S2 normal heart sound present Extrem General: Yes full ROM Assessment and Plan Assessment & Plan (1) Anxiety: Code(s): F41.9 - Anxiety disorder, unspecified Plan: Continue benzodiazepines as needed. (2) GERD (gastroesophageal reflux disease): Comment: doing well- Code(s): K21.9 - Gastro-esophageal reflux disease without esophagitis Qualifiers: Esophagitis presence: esophagitis presence not specified Qualified Code(s): K21.9 - Gastro-esophageal reflux disease without esophagitis Plan: Continue PPIs. (3) Bladder outlet obstruction: Code(s): N32.0 - Bladder-neck obstruction Plan: Follow-up with Urology. (4) Cardiomyopathy: Code(s): I42.9 - Cardiomyopathy, unspecified Plan: Continue Entresto. The goal is to not gain 5 lb in a week. Follow-up with Cardiology. Orders: Orders Lipid Panel 5 Months E78.5 - Hyperlipidemia, unspecified Complete Blood Count Auto Diff 5 Months D64.9 - Anemia, unspecified IRON PROFILE 5 Months D64.9 - Anemia, unspecified Comprehensive [place]. Panel Fast 5 Months M47.816 - Spondylosis without myelopathy or radiculopathy, lumbar region Coding Level of Care Code Est Pt Level 4 (65088) Diagnoses Anxiety F41.9 Gastroesophageal reflux disease, unspecified whether esophagitis present K21.9 Esophagitis presence: esophagitis presence not specified Bladder outlet obstruction N32.0 Cardiomyopathy I42.9 Additional Codes DENIS-7 Assessment Billing - DENIS-7 Assessment Tool: DENIS-7 Assessment 56876 ([id number]) Time Spent (min) 23
[2023-12-20 14:27] VITALS: BP 108/62
== END 2023-12-20 14:53 | disposition home or self-care (01) ==
PROVIDERS: PCP Internal Medicine; Visit Provider Internal Medicine
DX: F41.9 Anxiety disorder, unspecified (principal); K21.9 Gastro-esophageal reflux disease without esophagitis; N32.0 Bladder-neck obstruction; I42.9 Cardiomyopathy, unspecified
CPT/HCPCS: 99214

== ENCOUNTER 2024-01-23 09:30 | Outpatient (AMB) | payer OTHER, SELFPAY ==
--- NOTE | 2024-01-23 09:37 | A.OFFVIS_ITS ---
Intake Vital Signs 01/23/24 09:40 Height 5 ft 6 in Weight 187 lb 6.287 oz BMI 30.2 BP 136/85 Blood Pressure Location Lt brachial Position Sitting Pulse 82 Intake Visit Reasons: f/u - Achalasia of cardia Intake Note: Peewee presents in the office as a follow up today. CC: He states that he is not having any concerns today. Air Quality Manager Required: No Allergies codeine [CODEINE] Allergy (Intermediate, Verified 01/23/24 09:41) nausea trazodone [TRAZODONE] Allergy (Intermediate, Verified 01/23/24 09:41) SHORTNESS OF BREATH lactose [LACTOSE] Adverse Reaction (Intermediate, Verified 01/23/24 09:41) upset stomach HPI f/u - Achalasia of cardia HPI Details 68 yr old m here for f/u RECAP: He has history of microcytic hypochromic Anemia, possible MDS as well He had upper endoscopy and colonoscopy 07/[address] Munoz. EGD showed Henning's esophagus. Colonoscopy showed a couple of tubular adenomas. VCE with [facility] repeat colonsocopy 12/2020--APC to AVM and further polyp removed He was not taking iron--but received IV Ferrlecit with Dr Ladd--HGB has been good on last labs around 13 g/dl I referred him to surgery at his request for partial colectomy, surgeon wanted to r/o other causes KUB: hiatal hernia, no obstruction, degen bone changes, moderate amount of stool thru out colon Upper GI series: 11/12-- large para esophageal hernia, possible gastritis, mild cricophranygeal achalasia INTERIM: he ahs been taking naprosyn daily for a while due to back pain appetite is reasonable, avoids overating no nausea or vomiting no abdominal pain denies constipation and diarrhea, but does take senna which helps him, he is not keen on cutting this he has no dysphagia EXAM: GENERAL: The patient is well developed and nontoxic. VITAL SIGNS:see workflow HEENT: Nonicteric sclerae, PERRLA, EOMI. Oropharynx clear. Moist mucous membranes. Conjunctivae appear well perfused. No thyroid mass. CHEST: Chest wall is nontender. HEART: Regular rate and rhythm without murmurs. LUNGS: Clear to auscultation bilaterally. ABDOMEN: Soft, positive bowel sounds, tender LLQ, no organomegaly.no flank tenderness--lap scar noted SKIN: No rash, no excessive bruising, petechiae, or purpura. NEUROLOGIC: Cranial nerves II-XII intact without motor/sensory deficit. Psych--appropriate, sd at times A/P: 1/ GREG, multifactorial also possible fro m bone marrow issues 2/ Large hiatal hernia, he has no sympto ms fo chest pain and dysphagia , I did recommend surgery but he wants to hold on this PLAN: 1 / cont with high fiber diet, fluids, 2/ change naprosyn to celebrex, advised to try to cut down, can alternate with tylenol, cont with PPI 3/ Surgery referral for hernia, he wants to wait due to various life issues, advised risk of incarceration etc --leanne, get EGD for further assessment [facility] Medical History Mild depression Lumbar degenerative disc disease Cardiomyopathy Renal calculi Right shoulder pain Lumbar pain Right foot pain Left hip pain Skin lesion Esophageal hernia Hx of hepatitis C Orchalgia Anemia Post-op pain Smoker Insomnia GERD (gastroesophageal reflux disease) Diverticulosis Anxiety Surgical History H/O excision of epidermal inclusion cyst Hx of shoulder surgery History of esophagogastroduodenoscopy (EGD) Hx of colonoscopy History of back surgery History of mandibular surgery History of repair of laceration History of sinus surgery H/O hand surgery Family History Father Prostate cancer Mother Colon cancer Brother Prostate cancer Family/Other FH: mental illness Sister Chronic mental illness Social History Household Members: None Housing: Apartment Housing Other:: rents a room Are you a primary child care to a significant other at home: No Do you presently have visiting nurse or other home services: No Alcohol intake: former Patient Tobacco Use Status: Former Tobacco user Quit Date: 03/08/2022 Cigarettes Per Day: 2 Years Smoked: 15 e-Cigarette/Vaping Use: Never Used Second Hand Smoke Exposure: No service: No Current occupational status: disabled Cognitive needs: No Hearing needs: No Vision needs: Yes Physical Exam Vital Signs: BMI result Body Mass Index 30.2 Assessment & Plan Assessment & Plan (1) Esophageal hernia: Code(s): K44.9 - Diaphragmatic hernia without obstruction or gangrene Plan: 1/ GREG, multifactorial also possible from bone marrow issues 2/ Large hiatal hernia, he has no symptoms fo chest pain and dysphagia , I did recommend surgery but he wants to hold on this PLAN: 1 / cont with high fiber diet, fluids, 2/ change naprosyn to celebrex, advised to try to cut down, can alternate with tylenol, cont with PPI 3/ Surgery referral for hernia, he wants to wait due to various life issues, advised risk of incarceration etc --leanne, get EGD for further assessment Medications: New celecoxib (Celebrex) 100 mg PO BID 60 caps 2RF Discontinued naproxen Discontinued Reason: Doctor's Order 500 mg PO BID 30 days PRN 60 tabs 2RF pain Quality Reporting (2019) Adult ([facility] 138/01/12/69) Smoking risk assessment performed?: Yes Patient Tobacco Use Status: Former Tobacco user Coding Level of Care Code Est Pt Level 4 (80971) Diagnoses Esophageal hernia K44.9
[2024-01-23 09:40] VITALS: BP 136/85; PULSE 82; BMI 30.2
== END 2024-01-23 10:20 | disposition home or self-care (01) ==
PROVIDERS: PCP Internal Medicine; Visit Provider Internal Medicine Gastroenterology
DX: K44.9 Diaphragmatic hernia without obstruction or gangrene (principal)
CPT/HCPCS: 99214

== ENCOUNTER → 2024-01-23 09:30 | Outpatient (BNVA) | payer OTHER, SELFPAY | PROVIDERS: PCP Internal Medicine; Visit Provider Internal Medicine Gastroenterology | DX: K44.9 Diaphragmatic hernia without obstruction or gangrene (principal) | CPT/HCPCS: 99212 ==

== ENCOUNTER → 2024-03-06 13:40 | Outpatient (REF) | payer OTHER, SELFPAY ==
--- NOTE | 2024-03-06 13:45 | CA_ITS ---
Transthoracic Echocardiogram Patient (Last, First, Middle): Peewee Moralez, Gender: Male Date of : 1955 Age: 68 Procedure Date: 03/06/2024 Procedure Type: Transthoracic Echocardiogram Location: OP Height: 167.64 cm Weight: 86.18 kg BSA: 1.96 m2 Heart Rate: bpm BP: 130 / 72 mmHg Trading Assistant: TO Referring MD: Ken Cummins MD Symptoms: I42.9 - Cardiomyopathy, unspecified Study Quality: Fair ECG Rhythm: Sinus Conclusions: - The left ventricular systolic function is mildly decreased. The calculated ejection fraction is 52% by biplane method. - The basal inferior and basal inferolateral segments are akinetic. - Moderately increased right ventricular cavity size. - No obvious valvular pathology seen on this study. Findings Left Ventricle Normal left ventricular cavity size. There is normal left ventricular wall thickness. The left ventricular systolic function is mildly decreased. The calculated ejection fraction is 52% by biplane method. Diastolic function is normal for age. Wall Motion Rest Echo Findings The basal inferior and basal inferolateral segments are akinetic. Right Ventricle Moderately increased right ventricular cavity size. There is normal right ventricular systolic function. Atria The left atrium is moderately dilated. The right atrium is mildly dilated. Aortic Valve There is a normal trileaflet aortic valve. There is no aortic valve stenosis. There is no aortic valve regurgitation. Mitral Valve The mitral valve appears normal. There is trace mitral valve regurgitation. There is no mitral valve stenosis. Pulmonic Valve The pulmonic valve is likely normal. Tricuspid Valve There is mild tricuspid valve regurgitation. There is no evidence of pulmonary hypertension. Great Vessels The asc aorta and aortic arch are normal in size. Venous The inferior vena cava is normal in size and collapses greater than 50% with inspiration. Pericardium/Pleural There is no evidence of pericardial effusion. Prior Study Comparison No significant change compared to prior study dated: 09/20/2023. Recommendations, Care & Conclusions No obvious valvular pathology seen on this study. Measurements 2D Linear Measurements IVSd: 1.00 0.6-0.9/0.6-1.0 cm LVIDd: 5.28 3.9-5.3/4.2-5.9 cm LVIDd Index: 2.69 2.4-3.2/2.2-3.1 cm/m2 LVIDs: 3.74 2.0-3.6 cm LVPWd: 0.80 0.7-1.1 cm LA Diam: 3.40 2.7-3.8/3.0-4.0 cm LAIDs Index: 1.73 1.5-2.3 cm/m2 LV Mass: 215.85 67-162/88-224 g LV Mass Index: 110.13 43-95/49-115 g/m2 LVOT Diam: 2.40 3.0+(-)1.3 cm 2D Systolic Function EF 4C: 51.10 >55% EF 2C: 52.30 >55% EF BiP: 51.60 >55% Mitral Valve MV Pk E: 0.59 MV PK A: 0.70 MV Decel Time: 211.00 E/A: 0.80 E'Lateral: 8.70 E'Medial: 6.74 E/E' Med: 8.70 E/E' Lat: 6.70 PHT: 62.00 MVA PHT: 3.55 Decel [place]: 2.78 Aortic Valve AoV Pk Konrad: 1.43 AoV Mn Konrad: 1.01 AoV VTI: 0.30 AoV Pk Grad: 8.00 Aov Mn Grad: 5.00 CARY Cont.VTI: 3.01 LVOT LVOT Pk Konrad: 0.98 LVOT Mn Konrad: 0.62 LVOT VTI: 0.20 LVOT Pk Grad: 4.00 LVOT Mn Grad: 2.00 LVOT Diam: 2.40 LVOT Area: 4.52 Diastolic Function MV Pk E: 0.59 MV Pk A: 0.70 E/A: 0.80 E'Medial: 6.74 E/E' Med: 8.70 E' Laterial: 8.70 E/E' Lat: 6.70 Right Ventricle TAPSE (mm): 30.60 TVS' Konrad: 18.00 Tricuspid Valve TR Pk Konrad: 2.51 TR Pk Grad: 25.00 RA Press: 3.00 RVSP: 28.00 Great Vessels Aorta Sinus of Valsalva: 3.47 2.0-3.[address] [place]: 2.57 1.7-3.4 cm Ao Asc: 3.30 2.1-3.4 cm Ao Arch: 3.00 Updated in Other Vendor System with Status of Final Ken Placido MD electronically signed on 03/08/2024 10:44:00 AM with status of Final
== END ==
LOC: HO.CARD 13:40
PROVIDERS: PCP Internal Medicine; Visit Provider Internal Medicine
DX: I42.9 Cardiomyopathy, unspecified (principal)
CPT/HCPCS: 93306

== ENCOUNTER → 2024-03-06 13:45 | Outpatient (BNV) | payer OTHER, SELFPAY | PROVIDERS: PCP Internal Medicine; Visit Provider Internal Medicine | DX: I36.1 Nonrheumatic tricuspid (valve) insufficiency (principal) | CPT/HCPCS: 93306 ==

== ENCOUNTER 2024-03-15 13:31 | Outpatient (AMB) | payer OTHER, MEDICAID, SELFPAY ==
[2024-03-15 13:56] VITALS: BP 124/76; PULSE 79; BMI 30.9
--- NOTE | 2024-03-15 13:56 | MHC.OFFVIS ---
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: No Accompanied by: Self / Same As Patient Allergies codeine [CODEINE] Allergy (Intermediate, Verified 01/23/24 09:41) nausea trazodone [TRAZODONE] Allergy (Intermediate, Verified 01/23/24 09:41) SHORTNESS OF BREATH lactose [LACTOSE] Adverse Reaction (Intermediate, Verified 01/23/24 09:41) upset stomach Medication List - Last Reconciled 03/15/24 by Ken Cummins MD aspirin (Adult Low Dose Aspirin) 81 mg PO DAILY 90 days back brace As directed baclofen 20 mg PO BEDTIME PRN 30 days cane As directed celecoxib (Celebrex) 100 mg PO BID hydrocortisone 1% (Anti-Itch (hydrocortisone)) 1 appl topical BID PRN 30 days loratadine (Allergy Relief (loratadine)) 10 mg PO DAILY lorazepam 1 mg PO .four times a day PRN 30 days metoprolol succinate ER 25 mg PO DAILY multivitamin (One Daily Multivitamin tablet) 1 tab PO DAILY omeprazole 40 mg PO DAILY 90 days rosuvastatin 20 mg PO DAILY sacubitril-valsartan 24-26 mg (Entresto) 1 tab PO BID 90 days Shower Chair As directed sildenafil 100 mg PO ONCE PRN 30 days HPI Comments Details: Peewee returns for follow-up regarding coronary disease as well as cardiomyopathy. To recall, he was seen for palpitations and underwent noninvasive workup. However echocardiogram as well as stress perfusion imaging where abnormal leading to cardiac catheterization. No interventions performed. Since last seen, no major complaints. Some random chest pains but absolutely nothing exertion. Hence not clear if it is still angina or something else nonspecific. Otherwise, states he feels good and active with no limitations. [facility] Medical History Mild depression Lumbar degenerative disc disease Cardiomyopathy Renal calculi Right shoulder pain Lumbar pain Right foot pain Left hip pain Skin lesion Esophageal hernia Hx of hepatitis C Orchalgia Anemia Post-op pain Smoker Insomnia GERD (gastroesophageal reflux disease) Diverticulosis Anxiety Surgical History H/O excision of epidermal inclusion cyst Hx of shoulder surgery History of esophagogastroduodenoscopy (EGD) Hx of colonoscopy History of back surgery History of mandibular surgery History of repair of laceration History of sinus surgery H/O hand surgery Family History Father Prostate cancer Mother Colon cancer Brother Prostate cancer Family/Other FH: mental illness Sister Chronic mental illness Social History Household Members: None Housing: Apartment Housing Other:: rents a room Are you a primary childcare center administrator to a significant other at home: No Do you presently have visiting nurse or other home services: No Alcohol intake: former Patient Tobacco Use Status: Former Tobacco user Quit Date: 03/08/2022 Cigarettes Per Day: 2 Years Smoked: 15 e-Cigarette/Vaping Use: Never Used Second Hand Smoke Exposure: No service: No Current occupational status: disabled Cognitive needs: No Hearing needs: No Vision needs: Yes Review of Systems Const Denies chills, Denies fatigue, Denies fever(s), Denies frequent falls, Denies weakness, Denies weight gain and Denies weight loss ENT Denies dizziness Card Denies chest pain, Denies leg edema, Denies lightheadedness, Denies palpitations, Denies dyspnea and Denies dyspnea on exertion Resp Denies cough, Denies dyspnea and Denies dyspnea on exertion GI Denies hematochezia Musc Denies abnormal gait, Denies muscle weakness, Denies numbness, Denies radiating pain into limb and Denies tingling Neuro Denies abnormal gait, Denies dizziness, Denies frequent falls, Denies numbness, Denies tingling and Denies weakness Endo Denies fatigue and Denies palpitations Physical Exam Vital Signs: Last Vital Signs Pulse 79 03/15/24 13:56 BP 124/76 03/15/24 13:56 BMI result Body Mass Index 30.9 Const General: comfortable and no acute distress Orientation/consciousness: patient oriented x3 HEENT Other: Unremarkable Head: Yes normal to inspection Neck Neck: Yes normal visual inspection Chest Chest palpation & inspection: normal inspection of the chest Resp Auscultation: clear to auscultation bilaterally Cardio Palpation: normal PMI Heart sounds: S1 normal heart sound present, S2 normal heart sound present, no gallops, no murmurs and no rubs GI Palpation (GI): Soft to palpation Back/Spine/Pelvis Other: unremarkable Skin General skin exam: no rashes or lesions noted Neuro General: patient oriented x3 Extrem General: Yes normal to inspection Psych Mental Status: mental status grossly normal Office Procedures EKG Details: EKG with sinus rhythm at 85/Min; no significant ST-T changes and otherwise unremarkable. Normal [place] and corrected QT. PVC. 98014-[id number], Complete Quality Reporting (2019) Adult ([facility] 138/[birth year]) Smoking risk assessment performed?: Yes Patient Tobacco Use Status: Former Tobacco user Assessment & Plan Assessment & Plan (1) Ischemic cardiomyopathy: Code(s): I25.5 - Ischemic cardiomyopathy Category: Medical (2) Atherosclerotic cardiovascular disease: Code(s): I25.10 - Atherosclerotic heart disease of [place] coronary artery without angina pectoris Category: Medical (3) PVC (premature ventricular contraction): Code(s): I49.3 - Ventricular premature depolarization Category: Medical Plan Cardiac testing reviewed. In the most recent echocardiogram, LVEF 52%. Basal inferior/inferolateral akinesis. In the past, LVEF as low as 35-40%. Myocardial perfusion imaging study shows probable old infarct in the inferior/inferolateral wall with some ischemia towards the basal inferolateral wall. Holter shows underlying sinus rhythm but frequent PVCs and a burden of 1.3%; few short runs. Cardiac catheterization shows chronic total occlusion of the circumflex, but small vessel with [id number]-cshy and [id number]-[id number] collaterals and proximal LAD 50% stenosis. Cardiomyopathy thought to be not entirely ischemic in nature. For coronary disease remains on aspirin and statins. LDL cholesterol 46 mg/dL. With regard to the cardiomyopathy, on beta-blockers/Entresto. LVEF seems okay on the recent study. Clinically, no heart failure symptoms or signs. With regard to the PVCs, no specific management. Continue beta-blockers. We will see him back in 1 year. In the interim, he will call with any concerns. Coding Level of Care Code Est Pt Level 4 (27480) Diagnoses Ischemic cardiomyopathy I25.5 Atherosclerotic cardiovascular disease I25.10 PVC (premature ventricular contraction) I49.3 CPT Codes EKG - CPT: 99960-[id number], Complete ([id number])
== END 2024-03-15 14:27 | disposition home or self-care (01) ==
PROVIDERS: Visit Provider Internal Medicine
DX: I25.5 Ischemic cardiomyopathy (principal); I25.10 Atherosclerotic heart disease of native coronary artery without angina pectoris; I49.3 Ventricular premature depolarization
CPT/HCPCS: 93010; 99214

== ENCOUNTER → 2024-03-15 13:31 | Outpatient (BNVA) | payer OTHER, SELFPAY | PROVIDERS: Visit Provider Internal Medicine | DX: I49.3 Ventricular premature depolarization (principal); I25.10 Atherosclerotic heart disease of native coronary artery without angina pectoris; I10 Essential (primary) hypertension; I25.5 Ischemic cardiomyopathy | CPT/HCPCS: 93005; 99212 ==

== ENCOUNTER 2024-04-04 13:33 | Day surgery (SDC) | payer OTHER, SELFPAY ==
--- NOTE | 2024-04-03 09:53 | HO.ANESPROP2 ---
Documented by User: Pinky Torres NP 04/03/24 09:58 HPI - Anesthesia Eval Consult details Narrative: 68yo M for Upper Endoscopy Follows [facility] cardiology. Stable at 02/2024 office visit [facility] Active Problems Active Problems: All Active Problems Achalasia (Acute) Polyarthralgia (Acute) Physical exam (Acute) Bladder outlet obstruction (Acute) Left rotator cuff tear arthropathy (Acute) Traumatic partial tear of left biceps tendon (Acute) Left shoulder pain (Acute) Right hip pain (Acute) Right hand pain (Acute) Left hand pain (Acute) Right foot pain (Acute) Thoracic spine pain (Acute) Lumbar spondylosis (Acute) Failed back syndrome (Acute) Lumbar degenerative disc disease (Acute) Cardiomyopathy (Acute) PVC (premature ventricular contraction) (Acute) Atherosclerotic cardiovascular disease (Acute) Ischemic cardiomyopathy (Acute) Labral tear of shoulder (Acute) Precordial chest pain (Acute) Smoking greater than 20 pack years (Acute) Screening for AAA (abdominal aortic aneurysm) (Acute) Medicare annual wellness visit, initial (Acute) S/P right rotator cuff repair (Acute) Palpitations (Acute) Constipation (Acute) Rotator cuff tear, right (Acute) Renal calculi (Acute) Right shoulder pain (Acute) Diverticulosis (Acute) Erectile dysfunction due to arterial insufficiency (Acute) Lumbar pain (Acute) Right foot pain (Acute) Left hip pain (Acute) Skin lesion (Acute) Microcytic hypochromic anemia (Acute) Epididymal cyst (Acute) Esophageal hernia (Acute) Orchalgia (Acute) Anemia (Acute) Post-op pain (Acute) Smoker (Acute) Insomnia (Acute) GERD (gastroesophageal reflux disease) (Acute) Diverticulosis (Acute) Anxiety (Acute) Past Medical History Medical History Mild depression Lumbar degenerative disc disease Cardiomyopathy Renal calculi Right shoulder pain Lumbar pain Right foot pain Left hip pain Skin lesion Esophageal hernia Hx of hepatitis C Orchalgia Anemia Post-op pain Smoker Insomnia GERD (gastroesophageal reflux disease) Diverticulosis Anxiety Family History Family History Father Prostate cancer Mother Colon cancer Brother Prostate cancer Family/Other FH: mental illness Sister Chronic mental illness Family history of problems with anesthesia: No Surgical History Surgical History H/O excision of epidermal inclusion cyst Hx of shoulder surgery History of esophagogastroduodenoscopy (EGD) Hx of colonoscopy History of back surgery History of mandibular surgery History of repair of laceration History of sinus surgery H/O hand surgery History of Problems with Anesthesia: No Social History Social History Household Members: None Housing: Apartment Housing Other:: rents a room Are you a primary after school caregiver to a significant other at home: No Do you presently have visiting nurse or other home services: No Alcohol intake: former Patient Tobacco Use Status: Former Tobacco user Quit Date: 03/08/2022 Cigarettes Per Day: 2 Years Smoked: 15 e-Cigarette/Vaping Use: Never Used Second Hand Smoke Exposure: No Advance Directives: No service: No Current occupational status: disabled Cognitive needs: No Hearing needs: No Vision needs: Yes Meds Allergies Allergy/AdvReac Type Severity Reaction Status Date / Time codeine [CODEINE] Allergy Intermediate nausea Verified 04/04/24 13:42 trazodone [TRAZODONE] Allergy Intermediate SHORTNESS Verified 04/04/24 13:42 OF BREATH lactose [LACTOSE] AdvReac Intermediate upset Verified 04/04/24 13:42 stomach Exam Narrative Narrative: Per 02/2024 cardiology office visit EKG: sinus rhythm at 85/Min; no significant ST-T changes and otherwise unremarkable. Normal [place] and corrected QT. PVC. echocardiogram, LVEF 52%. Basal inferior/inferolateral akinesis. In the past, LVEF as low as 35-40%. Myocardial perfusion imaging study shows probable old infarct in the inferior/inferolateral wall with some ischemia towards the basal inferolateral wall. Holter shows underlying sinus rhythm but frequent PVCs and a burden of 1.3%; few short runs. Cardiac catheterization shows chronic total occlusion of the circumflex, but small vessel with gxtt-ow-kitz and qdtqy-gw-tigm collaterals and proximal LAD 50% stenosis. Cardiomyopathy thought to be not entirely ischemic in nature. Assessment and Plan Assessment Anesthesia Assessment: Chart Reviewed Final Anesthetic Review Family History of Problems with Anesthesia: No History of Problems with Anesthesia: No Documented by User: Tiffany Salcido MD 04/04/24 14:10 [facility] Past Medical History Medical History Mild depression Lumbar degenerative disc disease Cardiomyopathy Renal calculi Right shoulder pain Lumbar pain Right foot pain Left hip pain Skin lesion Esophageal hernia Hx of hepatitis C Orchalgia Anemia Post-op pain Smoker Insomnia GERD (gastroesophageal reflux disease) Diverticulosis Anxiety Family History Family History Father Prostate cancer Mother Colon cancer Brother Prostate cancer Family/Other FH: mental illness Sister Chronic mental illness Surgical History Surgical History H/O excision of epidermal inclusion cyst Hx of shoulder surgery History of esophagogastroduodenoscopy (EGD) Hx of colonoscopy History of back surgery History of mandibular surgery History of repair of laceration History of sinus surgery H/O hand surgery Social History Social History Household Members: None Housing: Apartment Housing Other:: rents a room Are you a primary after school caregiver to a significant other at home: No Do you presently have visiting nurse or other home services: No Alcohol intake: former Patient Tobacco Use Status: Former Tobacco user Quit Date: 03/08/2022 Cigarettes Per Day: 2 Years Smoked: 15 e-Cigarette/Vaping Use: Never Used Second Hand Smoke Exposure: No Advance Directives: No service: No Current occupational status: disabled Cognitive needs: No Hearing needs: No Vision needs: Yes Meds Allergies Allergy/AdvReac Type Severity Reaction Status Date / Time codeine [CODEINE] Allergy Intermediate nausea Verified 04/04/24 13:42 trazodone [TRAZODONE] Allergy Intermediate SHORTNESS Verified 04/04/24 13:42 OF BREATH lactose [LACTOSE] AdvReac Intermediate upset Verified 04/04/24 13:42 stomach Exam Airway Mallampati Class: II TM Dist: >3cm Neck ROM: Full Denture: Upper Heart: rrr Lungs: cta Assessment and Plan Assessment Anesthesia Assessment: Anesthesia Plan Discussed Final Anesthetic Review NPO: Yes ASA Class: III Final Preanesthetic Review: No Changes in Pt Med Stat, Meds/Allgs Chart Reviewed and Consent Obtained/Reviewed Patient Risk: Intermediate Procedure Risk: Intermediate Anesthetic Plan Anesthetic Plan: MAC: Disposition: Standard PACU
--- NOTE | 2024-04-04 13:40 | MHC.SHP ---
Pre-Procedural Eval Section A - 24 Hr Update-Section A only Date of Service: 04/04/24 Section B - Complete if H&P > 30 days Chief Complaint: Diaphragmatic hernia without obstruction or gangre Relevant Family History (Specify if Yes): No Relevant Social History: None Present Medications: see Short Stay Collaborative assessment Medical History: Significant History (Mild depression Lumbar degenerative disc disease Cardiomyopathy Renal calculi Right shoulder pain Lumbar pain Right foot pain Left hip pain Skin lesion Esophageal hernia Hx of hepatitis C Orchalgia Anemia Post-op pain Smoker Insomnia GERD (gastroesophageal reflux disease) Diverticulosis Anxiety) History of Previous Operations: Relevant previous surgery/procedure and date(s) (H/O excision of epidermal inclusion cyst Hx of shoulder surgery History of esophagogastroduodenoscopy (EGD) Hx of colonoscopy History of back surgery History of mandibular surgery History of repair of laceration History of sinus surgery H/O hand surgery) Allergies: Allergies Allergy/AdvReac Type Severity Reaction Status Date / Time codeine [CODEINE] Allergy Intermediate nausea Verified 01/23/24 09:41 trazodone [TRAZODONE] Allergy Intermediate SHORTNESS Verified 01/23/24 09:41 OF BREATH lactose [LACTOSE] AdvReac Intermediate upset Verified 01/23/24 09:41 stomach Review of Systems Sugical H&P ROS: Negative: Constitution, Cardiovascular, Respiratory, Neurological, Psychiatric, Hem-Onc, Allergic/Immunologic, Gastrointestinal, Genitourinary, Musculoskeletal, Integumentary, Endocrine and Eyes/Ears/Nose/Throat Exam Surgical H&P Exam: Normal: HEENT, Normal: Heart, Normal: Lungs, Normal: Extremities, Normal: Abdomen, Normal: Skin and Normal: Neurological Plan Diagnosis/Plan: Unchanged I have reviewed the history and physical and performed a pertinent physical examination on my patient. No changes have occurred unless specified. Time Spent With Patient Time: Total time managing care of this patient today ____ minutes.
[2024-04-04 13:51] VITALS: BMI 30.7
[2024-04-04 14:13] VITALS: BP 131/81; PULSE 80; RESP 16; TEMP 37.2; O2SAT 95
[2024-04-04] MEDS: Lactated Ringers 1,000 ML 50 ML IVCONT (14:17)
--- NOTE | 2024-04-04 14:36 | W.PM.OPN ---
Operative Note Operative Note Date of Service: 04/04/24 Narrative: Procedure Description: EGD Indication: hx of barretts Anesthesia: MAC FLEXIBLE TRANSORAL UPPER GASTROINTESTINAL ENDOSCOPY UPPER ENDOSCOPY Consent: Indications for the procedure and potential complications of bleeding, perforation, reaction to medications and missed diagnosis were discussed with the patient and informed consent was obtained. Instrument: Olympus GIF H 190 J mid size upper endoscope Monitoring: Vital signs and clinical assessment, continuous EKG monitoring, Pulse oximetry, Carbon Dioxide monitoring and blood pressure monitoring were done throughout the procedure. Procedure: The patient was placed in the left lateral decubitis position and pre-procedure medications were administered and a bite block was placed. The endoscope was inserted into the mouth and advanced under direct vision to the third part of duodenum. A careful inspection was made as the upper endoscope was withdrawn including a retroflexed examination of the proximal stomach; Findings and interventions are described below. Findings: Larynx:normal Esophagus: GE junction at 31 cm, diaphragm hiatus at 40 cm, consistent with 9 cm fixed hiatal hernia, small islands of salmon pink tissue noted, bx taken as well as brushings for WATS Stomach: normal . Grade 2 flap valve on retroflexed examination of the cardia. Duodenum: Normal bulb and descending duodenum, Intervention: Biopsies as noted above, and brushings Impression/Findings: hiatal hernia barretts esophagus PLAN: await bx GERD precautions
[2024-04-04 14:41] VITALS: BP 104/69; PULSE 75; RESP 16; TEMP 36.2; O2SAT 94
[2024-04-04 14:56] VITALS: BP 125/75; PULSE 79; RESP 20; TEMP 36.6; O2SAT 95
== END 2024-04-04 15:36 | disposition home or self-care (01) ==
PROVIDERS: PCP Internal Medicine; Visit Provider Internal Medicine Gastroenterology
PROC: 0DJ08ZZ Inspection of Upper Intestinal Tract, Via Natural or Artificial Opening Endoscopic (ICD-10-PCS; CPT 43235; principal; 2024-04-04 15:20)
DX: K22.70 Barrett's esophagus without dysplasia (principal); K44.9 Diaphragmatic hernia without obstruction or gangrene; K57.30 Diverticulosis of large intestine without perforation or abscess without bleeding; D50.9 Iron deficiency anemia, unspecified; K21.9 Gastro-esophageal reflux disease without esophagitis; I42.9 Cardiomyopathy, unspecified; E73.9 Lactose intolerance, unspecified; F41.9 Anxiety disorder, unspecified; Z86.19 Personal history of other infectious and parasitic diseases; Z88.5 Allergy status to narcotic agent; Z98.890 Other specified postprocedural states; Z87.891 Personal history of nicotine dependence
CPT/HCPCS: 43239; 88305; 88313; J2704

== ENCOUNTER → 2024-04-04 13:33 | Outpatient (BNV) | payer OTHER, MEDICAID, SELFPAY | PROVIDERS: PCP Internal Medicine; Visit Provider Internal Medicine Gastroenterology | DX: K22.70 Barrett's esophagus without dysplasia (principal) | CPT/HCPCS: 43239 ==

== ENCOUNTER 2024-05-18 13:32 | Outpatient (AMB) | payer OTHER, SELFPAY ==
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
[2024-05-18 13:41] VITALS: BP 128/63; PULSE 87; TEMP 36.4; O2SAT 94; BMI 32.7
== END 2024-05-19 00:05 | disposition home or self-care (01) ==
PROVIDERS: PCP Internal Medicine; Visit Provider Surgery
DX: K44.9 Diaphragmatic hernia without obstruction or gangrene (principal)
CPT/HCPCS: 99204

== ENCOUNTER → 2024-05-18 13:32 | Outpatient (BNVA) | payer OTHER, SELFPAY | PROVIDERS: PCP Internal Medicine; Visit Provider Surgery | DX: K44.9 Diaphragmatic hernia without obstruction or gangrene (principal) | CPT/HCPCS: 99202 ==

== ENCOUNTER 2024-05-29 13:45 | Outpatient (AMB) | payer OTHER, SELFPAY ==
[2024-05-29 13:52] VITALS: BP 104/70; PULSE 80; O2SAT 96; BMI 33.7
--- NOTE | 2024-05-29 13:52 | A.OFFPC_ITS ---
Vital Signs 05/29/24 13:52 Height 5 ft 3 in Weight 190 lb BMI 33.7 BP 104/70 Blood Pressure Location Lt brachial Position Sitting Pulse 80 Pulse Source Pulse Oximeter Pulse Oximetry (%) 96 Oxygen Delivery Method Room Air Intake Visit Reasons: pe Intake Note: Patient is here today for a physical. Personnel Security Assistant Required: No Accompanied by: Self / Same As Patient Allergies codeine [CODEINE] Allergy (Intermediate, Verified 05/29/24 14:16) nausea trazodone [TRAZODONE] Allergy (Intermediate, Verified 05/29/24 14:16) SHORTNESS OF BREATH lactose [LACTOSE] Adverse Reaction (Intermediate, Verified 05/29/24 14:16) upset stomach Medication List - Last Reconciled 05/29/24 by Laurel Dubon MD aspirin (Adult Low Dose Aspirin) 81 mg PO DAILY 90 days back brace As directed baclofen 20 mg PO BEDTIME PRN 30 days cane As directed celecoxib (Celebrex) 100 mg PO BID hydrocortisone 1% (Anti-Itch (hydrocortisone)) 1 appl topical BID PRN 30 days loratadine (Allergy Relief (loratadine)) 10 mg PO DAILY lorazepam 1 mg PO .four times a day PRN 30 days metoprolol succinate ER 25 mg PO DAILY multivitamin (One Daily Multivitamin tablet) 1 tab PO DAILY omeprazole 40 mg PO DAILY 90 days rosuvastatin 20 mg PO DAILY sacubitril-valsartan 24-26 mg (Entresto) 1 tab PO BID 90 days Shower Chair As directed sildenafil 100 mg PO ONCE PRN 30 days Tobacco use date assessed: 12/20/23 Fall risk assessment: No Falls in past year Last assessed Fall Risk: 05/29/24 Dental Screening Dental Screen Date: 12/20/23 HPI HPI Comments History of Present Illness Details This is a 68-year-old male with cardiomyopathy that comes for his physi neel exam. Last colonoscopy was 2020 and next colonoscopy should be this year. Has an appointment with Gastroenterology in a few months. He has anxiety and would like to change from lorazepam to clonazepam because he says he sleeps better with clonazepam. No acute complaints. [facility] Medical History Mild depression Lumbar degenerative disc disease Cardiomyopathy Renal calculi Right shoulder pain Lumbar pain Right foot pain Left hip pain Skin lesion Esophageal hernia Hx of hepatitis C Orchalgia Anemia Post-op pain Smoker Insomnia GERD (gastroesophageal reflux disease) Diverticulosis Anxiety Surgical History H/O excision of epidermal inclusion cyst Hx of shoulder surgery History of esophagogastroduodenoscopy (EGD) Hx of colonoscopy History of back surgery History of mandibular surgery History of repair of laceration History of sinus surgery H/O hand surgery Family History (Updated 05/29/24 @ 14:23 by Laurel Dubon MD) Father Prostate cancer, Onset Age: 65 Mother Colon cancer, Onset Age: 76 Brother Prostate cancer Family/Other FH: mental illness Sister Chronic mental illness Social History Household Members: None Housing: Apartment Housing Other:: rents a room Are you a primary hearing care practitioner to a significant other at home: No Do you presently have visiting nurse or other home services: No Alcohol intake: former Patient Tobacco Use Status: Former Tobacco user Cigarettes Per Day: 2 Years Smoked: 15 e-Cigarette/Vaping Use: Never Used Second Hand Smoke Exposure: No service: No Current occupational status: disabled Cognitive needs: No Hearing needs: No Vision needs: Yes Questionnaire Thrive Questionnaire Date Thrive assessed: 12/20/23 DENIS-7 AMB Questionnaire DENIS-7 Date DENIS - 7 assessed: 12/20/23 Source: Developed by Drs. Adrian Gunderson, Kecia Flowers, Americo Ling and colleagues, with an educational parish from [employer]. Review of Systems Const All systems reviewed & are unremarkable except as noted in HPI and below Card Denies chest pain at rest, Denies chest pain with activity, Denies edema, Denies irregular heart rhythm, Denies claudication, Denies dyspnea, Denies dyspnea on exertion, Denies orthopnea, Denies paroxysmal nocturnal dyspnea and Denies slow heart rate Resp Denies cough, Denies dyspnea and Denies dyspnea on exertion GI Denies abdominal pain, Denies change in bowel habits, Denies excessive flatus, Denies nausea and Denies vomiting Denies urinary hesitancy, Denies urinary incontinence and Denies urinary urgency Musc Denies atrophy, Denies deformity and Denies limited range of motion Skin/Breast Denies bleeding lesions, Denies changing lesions and Denies rash Physical exam (Primary Care) Vital Signs: Last Vital Signs Pulse 80 05/29/24 13:52 BP 104/70 05/29/24 13:52 Pulse Ox 96 05/29/24 13:52 Oxygen Delivery Method Room Air 05/29/24 13:52 BMI result Body Mass Index 33.7 Tobacco/Smoking Status: Tobacco use Status Tobacco use date assessed 12/20/23 05/29/24 13:52 Patient Tobacco Use Status Former Tobacco user 05/29/24 13:52 Tobacco use type 11/09/23 10:05 e-Cigarette/Vaping Use Never Used 05/29/24 13:52 Thrive Assessment: Date of Thrive Assessment Date Thrive assessed 12/20/23 05/29/24 13:52 HENMT Head: Yes normal to inspection, Yes normocephalic and Yes atraumatic Ears: external ears normal Eyes General: appearance normal, both eyes and all related structures Eyelids: Yes eyelids normal Conjunctivae: conjunctivae normal Neck Neck: Yes normal visual inspection and Yes supple Resp Effort & Inspection: normal respiratory effort Auscultation: clear to auscultation bilaterally Cardio Jugular venous distension: no JVD Rate: regular rate Rhythm: regular rhythm Heart sounds: S1 normal heart sound present and S2 normal heart sound present GI Inspection: Yes normal to inspection Palpation (GI): Soft to palpation and nontender Auscultation: normal bowel sounds Skin General skin exam: no rashes or lesions noted Neuro General: no focal motor deficits Extrem General: Yes full ROM Assessment and Plan Assessment & Plan (1) Physical exam: Code(s): Z00.00 - Encounter for general adult medical examination without abnormal findings Plan: Repeat in a year. (2) Cardiomyopathy: Code(s): I42.9 - Cardiomyopathy, unspecified Plan: Continue Entresto. Follow-up with Cardiology. The goal is to not gain 5 lb in a week. (3) Anxiety: Code(s): F41.9 - Anxiety disorder, unspecified Plan: Discontinue lorazepam. Start clonazepam. Orders: Orders Vitamin D 25-OH Total Today E55.9 - Vitamin D deficiency, unspecified Complete Blood Count Auto Diff Today D64.9 - Anemia, unspecified PSA,Total (Free>4and<10) Today Z12.5 - Encounter for screening for malignant neoplasm of prostate IRON PROFILE Today D64.9 - Anemia, unspecified Comprehensive [place]. Panel Fast Today K22.0 - Achalasia of cardia NT-proBNP Today I42.9 - Cardiomyopathy, unspecified Vitamin B12 and Folate Today E53.8 - Deficiency of other specified B group vitamins Lipid Panel Today E78.5 - Hyperlipidemia, unspecified Referrals Open Access Screening Colonoscopy Referral Z12.11 - Encounter for screening for malignant neoplasm of colon Medications: New clonazepam 1 mg PO TID PRN 90 tabs 0RF anxiety 30 days F41.9 - Anxiety disorder, unspecified Refilled sildenafil administer 60 minutes before intended activity 100 mg PO ONCE PRN 30 tabs 1RF sexual activity 30 days N52.01 - Erectile dysfunction due to arterial insufficiency Discontinued lorazepam Discontinued Reason: Patient Completed Course 1 mg PO .four times a day 30 days PRN 120 tabs 0RF anxiety Coding Level of Care Code Est Pt Level 3 (37984) Est Pt Prev Care >65y(34288) Diagnoses Physical exam Z00.00 Cardiomyopathy I42.9 Anxiety F41.9 Time Spent (min) 31
== END 2024-05-29 14:33 | disposition home or self-care (01) ==
LOC: HO.HMGH 13:45
PROVIDERS: PCP Internal Medicine; Visit Provider Internal Medicine
DX: Z00.00 Encounter for general adult medical examination without abnormal findings (principal); I42.9 Cardiomyopathy, unspecified; F41.9 Anxiety disorder, unspecified
CPT/HCPCS: 99213; 99397

== ENCOUNTER 2024-06-24 13:22 | Emergency (ER) | payer OTHER, SELFPAY ==
--- NOTE | ~2024-06-24 | XR_ITS ---
EXAMINATION: XR LUMBOSACRAL SPINE CLINICAL INFORMATION: Back pain for 3 days COMPARISON: 10/04/2022 TECHNIQUE: Three views of the lumbosacral spine. FINDINGS: Stable appearance of the L4-L5 fusion. Severe degenerative disc disease at T12-L1 and L1-L2. Slight retrolisthesis of L1-L2. No acute or new abnormality. XR/XR lumbar spine 2-3V IMPRESSION: Stable L4-L5 fusion. Severe degenerative disc disease at T12-L1 and L1-L2.
[2024-06-24 13:31] VITALS: BP 142/76; PULSE 80; O2SAT 98
[2024-06-24 13:34] VITALS: BP 136/85; PULSE 78; RESP 19; TEMP 37.1; O2SAT 95; BMI 31.0
--- NOTE | 2024-06-24 13:42 | PC.NURSE ---
Pt presents to ED via EMS from home, reports chronic lower back, multiple surgeries and previous issues. Reports he tried to get out of bed this morning and had severe pain in his lower back. No fall, no incontinence, no numbness/tingling in lower legs. EMS gave 100 mcg of fentanyl with some improvements. Alert and oriented, breathing even and unlabored, skin WNL.
--- NOTE | 2024-06-24 13:58 | ED_ITS ---
HPI - Back Pain/Injury General Chief Complaint: Back Pain/Injury Stated Complaint: LOWER BACK PAIN Time Seen by Provider: 06/24/24 13:46 Source: patient Mode of arrival: ambulatory Limitations: no limitations History of Present Illness ED Provider: DR. Bray HPI Narrative: 68-year-old male with history of chronic back pain, had history of back surgery 4 years ago, patient was doing fine until this morning when he could not get out of bed due to severe back stiffness and pain. Patient moved recently reported heavy lifting during the moving. Patient declined any weakness or numbness, no urinary incontinence, no stool incontinence , no history of IV drug abuse, no fever, no chills. Related Data Previous Rx's ?Medication ?Instructions ?Recorded hydrocortisone 1 % topical cream 1 appl topical BID PRN skin 06/22/21 (Anti-Itch (hydrocortisone)) irritation 30 days #28.4 grams back brace #1 ea 07/13/22 Shower Chair #1 ea 11/10/22 cane #1 ea 11/10/22 multivitamin (One Daily 1 tab PO DAILY #30 tabs 12/08/22 Multivitamin tablet) loratadine 10 mg tablet (Allergy 10 mg PO DAILY #90 tabs 05/30/23 Relief (loratadine)) celecoxib 100 mg capsule (Celebrex) 100 mg PO BID #60 caps 01/23/24 omeprazole 40 mg capsule,delayed 40 mg PO DAILY 90 days #90 caps 02/23/24 release aspirin 81 mg tablet,delayed 81 mg PO DAILY 90 days #90 tabs 03/24/24 release (Adult Low Dose Aspirin) rosuvastatin 20 mg tablet 20 mg PO DAILY #90 tabs 03/26/24 baclofen 20 mg tablet 20 mg PO BEDTIME PRN for muscle 04/18/24 pain 30 days #30 tabs metoprolol succinate 25 mg 25 mg PO DAILY #90 tabs 05/14/24 tablet,extended release 24 hr sacubitril 24 mg-valsartan 26 mg 1 tab PO BID 90 days #180 tabs 05/14/24 tablet (Entresto) sildenafil 100 mg tablet 100 mg PO ONCE PRN sexual activity 05/29/24 30 days #30 tabs clonazepam 1 mg tablet 1 mg PO .every 6 hours PRN anxiety 05/30/24 30 days #120 tabs Allergies Allergy/AdvReac Type Severity Reaction Status Date / Time codeine [CODEINE] Allergy Intermediate nausea Verified 06/24/24 13:35 trazodone [TRAZODONE] Allergy Intermediate SHORTNESS Verified 05/29/24 14:16 OF BREATH lactose [LACTOSE] AdvReac Intermediate upset Verified 05/29/24 14:16 stomach Review of Systems 2 Review of Systems: All other systems are reviewed and are negative Constitutional: Reports as per HPI and Reports no additional constitutional complaints Eyes: Reports as per HPI and Reports no additional eye complaints Reports system reviewed and no additional complaints, except as documented Cardiovascular: Reports as per HPI and Reports no additional cardiovascular complaints Respiratory: Reports as per HPI and Reports no additional respiratory complaints Gastrointestinal: Reports as per HPI and Reports no additional gastrointestinal complaints Genitourinary: Reports no additional female genitourinary complaints Musculoskeletal: Reports no additional musculoskeletal complaints Skin/Breast: Reports system reviewed and no additional complaints, except as docu Psychiatric: Reports no additional psychiatric complaints Endocrine: Reports no additional endocrine complaints Hematologic/Lymphatic: Reports no additional hematologic/lymphatic complaints Allergic/Immunologic: Reports no additional allergic/immunologic complaints Reports system reviewed and no additional complaints, except as documented and Reports Abnormal speech present [facility] Past Medical History Medical History Mild depression Lumbar degenerative disc disease Cardiomyopathy Renal calculi Right shoulder pain Lumbar pain Right foot pain Left hip pain Skin lesion Esophageal hernia Hx of hepatitis C Orchalgia Anemia Post-op pain Smoker Insomnia GERD (gastroesophageal reflux disease) Diverticulosis Anxiety Surgical History H/O excision of epidermal inclusion cyst Hx of shoulder surgery History of esophagogastroduodenoscopy (EGD) Hx of colonoscopy History of back surgery History of mandibular surgery History of repair of laceration History of sinus surgery H/O hand surgery Family History Family History Father Prostate cancer, Onset Age: 65 Mother Colon cancer, Onset Age: 76 Brother Prostate cancer Family/Other FH: mental illness Sister Chronic mental illness Social History Social History Household Members: None Housing: Apartment Housing Other:: rents a room Are you a primary youth care professional to a significant other at home: No Do you presently have visiting nurse or other home services: No Alcohol intake: former Patient Tobacco Use Status: Former Tobacco user Cigarettes Per Day: 2 Years Smoked: 15 Smoked in Last 30 Days: No e-Cigarette/Vaping Use: Never Used Second Hand Smoke Exposure: No Use of substances other than those prescribed or required for medical reasons: No Advance Directives: No Advance Directives Information Provided: No service: No Current occupational status: disabled Cognitive needs: No Hearing needs: No Vision needs: Yes Physical Exam 2 Vital Signs: Vital Signs: Last Vital Signs Temp 98.8 F 06/24/24 13:34 Pulse 78 06/24/24 13:34 Resp 19 06/24/24 13:34 BP 136/85 06/24/24 13:34 Pulse Ox 95 06/24/24 13:34 O2 Del Method Room Air 06/24/24 13:34 BMI result Body Mass Index 31.0 Vital signs have been reviewed and appear to be correct. Blood pressure elevated. Heart rate normal. Respiratory rate normal. Temperature normal. Oxygen saturation normal. Appearance: Alert. Oriented X3. No acute distress. Head: Normal external exam. Normocephalic. Atraumatic. No Regan signs noted. No raccoon eyes noted Eyes: PERRLA. EOMI. Conjunctiva and sclera normal. Eyelids normal. ENT: TM's Normal. Pharynx normal. Uvula midline. Moist mucous membranes. No trismus noted. No drooling noted. No muffled voice noted. Neck: Normal inspection. Neck supple. FROM. No adenopathy. Thyroid Normal. No meningeal signs. No neck mass noted. CVS: Normal heart rate and rhythm. Heart sound normal. No murmurs noted. Pulses normal throughout. Respiratory: No respiratory distress. Painless inspiration. Breath sounds normal. No wheezes/rales/rhonchi noted. Chest nontender. No accessory muscle usage noted or decreased air movement noted. Abdomen: Soft and nontender. Bowel sounds normal in all 4 quadrants. No distention noted. No organomegaly noted. No visible injury noted. Back: Spasm of the paravertebral muscle on both sides, no point of reproducible tenderness. Skin: Skin warm and dry. Normal skin color. Normal skin turgor. No rashes/lesions/lacerations noted. Extremities: No lower extremity edema. Extremities exhibit normal range of motion. Extremities nontender. Neuro: Oriented X 3. Cranial nerve exam: II-XII are grossly intact No motor deficit. No sensory deficit. Reflexes normal. Course Reevaluation(s) Reevaluation #1: will start the patient on physician observation, get physical therapy evaluation, case management for placement, will keep under observation in the ED for pain medication as needed. Patient now has 1/10 back pain and feels better. Time: 15:35 Medications Administered Discontinued Medications Generic Name Dose Route Start Last Admin Trade Name Miguelina PRN Reason Stop Dose Admin Diazepam 2 mg 06/24/24 13:55 06/24/24 14:05 Diazepam 2 Mg Tablet PO 06/24/24 13:56 2 mg ONCE ONE Administration Hydromorphone HCl 2 mg 06/24/24 13:55 06/24/24 14:05 Hydromorphone Hcl 2 Mg/Ml Vial IVPUSH 06/24/24 13:56 2 mg ONCE ONE Administration Protocol Medical Decision Making Differential Diagnosis Differential Diagnoses: The differential diagnosis associated with the presentation includes ( Muscular pain, compression fracture lumbar spine, contusion of the back, sciatica, cauda equina syndrome , medical clearance for rehab.) Admission/Observation Consideration of admission/observation: Escalation of care including admission/observation considered Lab Data MDM Lab Attestation statement: I reviewed the patient's lab results. 06/24/24 14:25 06/24/24 14:25 Labs: Lab Results 06/24/24 Range/Units 14:25 WBC 6.3 (4.8-10.8) X10*3/uL RBC 4.32 L (4.60-5.80) X10*6/uL Hgb 11.9 L (14.0-18.0) g/dl Hct 36.4 L (42.0-52.0) % MCV 84.3 (80.0-98.0) fL MCH 27.5 (27.0-33.0) pg MCHC 32.7 (31.0-36.0) g/dl RDW 14.0 (11.0-16.0) % Plt Count 137 L (160-400) X10*3/uL MPV 12.9 H (9.4-12.4) fL Immature Gran % (Auto) 0.2 (0.0-0.4) % Neut % (Auto) 72.1 (45-73) % Lymph % (Auto) 16.1 L (20-40) % [place] % (Auto) 9.5 (2-11) % Eos % (Auto) 1.6 (0-4) % Baso % (Auto) 0.5 (0-2) % Lymph # (Auto) 1.0 L (1.2-4.9) X10*3/uL [place] # (Auto) 0.6 (0.1-1.2) X10*3/uL Eos # (Auto) 0.1 (0.0-0.4) X10*3/uL Baso # (Auto) 0.0 (0.0-0.2) X10*3/uL Abs Immat Gran (auto) 0.01 (0.00-0.03) X10*3/uL Absolute Neuts (auto) 4.5 (2.0-8.3) x10*3/uL Absolute Nucleated RBC 0.000 (0.0-0.012) X10*3/uL Nucleated RBC % (auto) 0.0 (0.0-0.2) /100WBC Smear Tech's Comments VERIFIED Sodium 140 (135-145) mmol/L Potassium 4.2 (3.3-5.1) mmol/L Chloride 106 (96-108) mmol/L Carbon Dioxide 26 (22-29) mmol/L Anion Gap 12 (12-20) BUN 8 L (9-16) mg/dL Creatinine 0.90 (0.5-1.4) mg/dL Estim Creat Clear Calc 81.2 Estimated GFR > 60 Random Glucose 99 (60-115) mg/dL Calcium 9.4 (8.4-10.2) mg/dL Independent Interpretation I performed an independent interpretation of an: Plain X-Ray Radiology Impression Discussion of test interpretation with radiology: I have reviewed the radiologist's reading. Chronic Conditions Patient?s care impacted by: Other ( Chronic back pain.) Discharge Plan Discharge Clinical Impression: Back pain Patient Disposition: Still a Patient Prescriptions: No Action hydrocortisone [Anti-Itch (HC)] 1 % cream 1 appl topical BID PRN (Reason: skin irritation) 30 Days Qty: 28.4 3RF multivitamin [One Daily Multivitamin] Tablet 1 tab PO DAILY Qty: 30 6RF loratadine [Allergy Relief (loratadine)] 10 mg tablet 10 mg PO DAILY Qty: 90 0RF omeprazole 40 mg capsule,delayed release(DR/EC) 40 mg PO DAILY 90 Days Qty: 90 1RF aspirin [Adult Low Dose Aspirin] 81 mg tablet,delayed release (DR/EC) 81 mg PO DAILY 90 Days Qty: 90 1RF rosuvastatin 20 mg tablet 20 mg PO DAILY Qty: 90 3RF baclofen 20 mg tablet 20 mg PO BEDTIME PRN (Reason: for muscle pain) 30 Days Qty: 30 2RF Entresto 24-26 mg tablet 1 tab PO BID 90 Days Qty: 180 3RF metoprolol succinate 25 mg tablet extended release 24 hr 25 mg PO DAILY Qty: 90 3RF clonazepam 1 mg tablet 1 mg PO .every 6 hours PRN (Reason: anxiety) 30 Days Qty: 120 0RF (DME) back brace Misc See Rx Instructions .Route Qty: 1 0RF Rx Instructions: As directed (DME) cane Device See Rx Instructions .Route Qty: 1 0RF Rx Instructions: As directed (DME) Shower Chair Misc See Rx Instructions .Route Qty: 1 0RF Rx Instructions: As directed sildenafil 100 mg tablet 100 mg PO ONCE PRN (Reason: sexual activity) 30 Days Qty: 30 1RF Rx Instructions: administer 60 minutes before intended activity celecoxib [Celebrex] 100 mg capsule 100 mg PO BID Qty: 60 2RF Print Language: Azerbaijani
[2024-06-24] MEDS: diazePAM 2 MG TABLET PO (14:05)
[2024-06-24] MEDS: HYDROmorphone HCl 2 MG/ML VIAL IVPUSH (14:05)
[2024-06-24 14:38] LABS: Basophils Percent Auto 0.5 % (0-2); Eosinophils Absolute Auto 0.1 X10*3/uL (0.0-0.4); Eosinophils Percent Auto 1.6 % (0-4); Hematocrit 36.4 % (42.0-52.0); Hemoglobin 11.9 g/dl (14.0-18.0); Imm Gran Abs Auto 0.01 X10*3/uL (0.00-0.03); Imm Gran Pct Auto 0.2 % (0.0-0.4); Lymphocytes Percent Auto 16.1 % (20-40); MANUAL DIFF FLAG SCAN; Mean Corpuscular HGB Conc 32.7 g/dl (31.0-36.0); Mean Corpuscular Hemoglobin 27.5 pg (27.0-33.0); Mean Corpuscular Volume 84.3 fL (80.0-98.0); Monocytes Absolute Auto 0.6 X10*3/uL (0.1-1.2); Monocytes Percent Auto 9.5 % (2-11); Neutrophils Absolute Auto 4.5 x10*3/uL (2.0-8.3); Neutrophils Percent Auto 72.1 % (45-73); PLT CLUMP 1; Red Blood Count 4.32 X10*6/uL (4.60-5.80); SCAN SMEAR FLAG 1
[2024-06-24 14:39] LABS: White Blood Count 6.3 X10*3/uL (4.8-10.8)
[2024-06-24 14:47] LABS: Anion Gap 12 (12-20); Blood Urea Nitrogen 8 mg/dL (9-16); Calcium 9.4 mg/dL (8.4-10.2); Carbon Dioxide 26 mmol/L (22-29); Chloride 106 mmol/L (96-108); Creatinine Clr Calc Pharmacy 81.2; Estimated Glomerular Filt Rate > 60; Glucose Random 99 mg/dL (60-115); Potassium 4.2 mmol/L (3.3-5.1); Sodium 140 mmol/L (135-145)
[2024-06-24 15:05] LABS: Mean Platelet Volume 12.9 fL (9.4-12.4); Platelet Count 137 X10*3/uL (160-400)
[2024-06-24 15:06] LABS: SLIDE REVIEW VERIFIED
[2024-06-24 16:08] VITALS: BP 153/76; PULSE 74; RESP 18; TEMP 37.2; O2SAT 94
--- NOTE | 2024-06-24 16:13 | PC.NURSE ---
Pt reports feeling overall much better after pain medicine. Reports he does not want to jacket changer into hospital clothing, more comfortable in his own shirt. VSS
--- NOTE | 2024-06-24 16:13 | PC.NURSE ---
Med rec completed by this RN with patient
--- NOTE | 2024-06-24 16:29 | MHC.CM.PN ---
EMR REVIEWED, PT W/BACKPAIN AND RECENTLY MOVED AND CARRYING/MOVING HEAVY OPBJECTS, CM MET W/PT WHO DOES CONFIRM HIS PCP IS CARON BRICENO, HE JUST MOVED FROM A BOARDING HOUSE TO HIS OWN APARTMENT AND MOVED AND PUT TOGETHER A NEW BED WHICH MAY BE THE REASON, PT IS PENDING HOWEVER PT WILL LIKELY DECLINE HOME SERVICES AND WILL NOT GO TO STR/ACUTE REHAB. PT USES A CANE, DENIES HOME SERVICES AND REPORTS HE USED TO HAVE 9 TALENT SPECIALIST HRS [facility] BUT THEY DECREASED HIM TO 4HRS AND THEN HIS TALENT SPECIALIST QUIT, PT DOES REPORT HE HAS FAMILY LOCAL WHO CAN ASSIST AND WILL TRANSPORT PT HOME. PT REPORTS ED MD WILL KEEP HIM OVERNIGHT, PT DECLINING TO DC HOME TODAY.
[2024-06-24 16:44] VITALS: BP 153/73; PULSE 78; RESP 16; O2SAT 95
--- NOTE | 2024-06-24 16:49 | PC.NURSE ---
Pt requesting laxative, reports he takes them daily for his diverticulitis. Provider aware
[2024-06-24] MEDS: polyethylene glycoL 3350 17 GM POWD.PACK PO (17:03)
--- NOTE | 2024-06-24 19:17 | PC.NURSE ---
Assumed care of pt. Pt lying on stretcher, no acute distress at this time. Pt refusing hospital clothing at this time, pending PT evaluation in am.
[2024-06-24 19:20] VITALS: BP 142/90; PULSE 85; RESP 16; O2SAT 95
[2024-06-24 19:32] LABS: Appearance Urine Clear; Color Urine Dark Yellow; Glucose Urine UA Negative (Negative); Leukocyte Esterase Urine Negative (Negative); Nitrite Urine Negative (Negative); Specific Gravity - Urine 1.015 (1.005-1.025); Urine Blood Negative (Negative); Urine Ketones Negative (Negative); Urine Protein Negative (Neg-Trace)
[2024-06-24] MEDS: clonazePAM 1 MG TABLET PO (21:35)
[2024-06-24] MEDS: Baclofen 20 MG TABLET PO (21:35)
--- NOTE | 2024-06-24 21:59 | PC.NURSE ---
Report given to Yuriy Singh
--- NOTE | 2024-06-24 22:34 | PC.NURSE ---
pt from main ed, pt amb steadily from stretcher to bed. Pt is very angry at the Monegas[place] doctor, where did he come from? He is fucking crazy! Pt angry, because he was not prescribed, oxycodone, and because he hasn't had anything to eat, today. Pt given a turkey sandwich, a pudding cup and a pitcher of water. Will cont plan of care.
[2024-06-24 22:47] VITALS: BP 156/89; PULSE 79; RESP 18; TEMP 36.6; O2SAT 96
--- NOTE | 2024-06-25 02:12 | PC.NURSE ---
resting quietly with eyes closed,resp with ease, no acute distress noted
[2024-06-25] MEDS: clonazePAM 1 MG TABLET PO ×3 (03:25→15:28)
--- NOTE | 2024-06-25 03:29 | PC.NURSE ---
pt asked for his klonopin, states I can have it every 6 hours, and I had it about 9pm . Pt medicated as requested, resp with ease, no s/s of acute distress, will cont plan of care.
--- NOTE | 2024-06-25 04:44 | PC.NURSE ---
pt resting quietly, with eyes closed, resp with ease, no s/s of acute distress, will cont plan of care
--- NOTE | 2024-06-25 06:16 | MHC.EDTECH ---
Pt sleeping after being awake at 3 am and medicated. Pt asked that vitals be done later.
[2024-06-25] MEDS: Omeprazole 40 MG CAPSULE.DR PO (06:36)
[2024-06-25 06:40] VITALS: BP 140/83; PULSE 68; RESP 16; O2SAT 96
--- NOTE | 2024-06-25 07:16 | PC.NURSE ---
report given to Luda LR
[2024-06-25 08:27] VITALS: BP 155/84; PULSE 66
[2024-06-25] MEDS: Metoprolol Succinate ER 25 MG TAB.ER.24H PO (08:27)
[2024-06-25] MEDS: Aspirin Enteric Coated 81 MG TABLET.DR PO (08:30)
[2024-06-25] MEDS: Atorvastatin Calcium 80 MG TABLET PO (08:30)
--- NOTE | 2024-06-25 12:38 | PHA.MEDREC ---
Pharmacy Consult ? Medication Reconciliation Pharmacy has REVIEWED the medication reconciliation done by nursing
--- NOTE | 2024-06-25 13:22 | MHC.CM.PN ---
Addendum entered by Marixa Mcneal 06/25/24 15:47: [facility] HAS OBTAINED AUTH FOR ADMISSION FROM [facility]. TRANSPORT AUTH OBTAINED FROM [facility] , BOOKING ID #[id number]. BLS TRANSPORT BOOKED FOR 6 PM VIA [facility]. RN/PROVIDER AWARE. Original Note: CM MET WITH PT AT BEDSIDE TO DISCUSS STR REFERRALS ACUTE REHABS HAVE DENIED. PT WOULD LIKE TO STAY IN [place] AND [facility] HAS OFFERED A BED PENDING AUTH FROM INSURANCE..PT ACCEPTS BED OFFER AND [facility] HAS SUBMITTED FOR AUTH. CM CONTINUES TO FOLLOW
[2024-06-25 14:00] VITALS: BP 93/64; PULSE 66; RESP 14; TEMP 37.2; O2SAT 93
--- NOTE | 2024-06-25 14:41 | PC.NURSE ---
Assumed care for pt @700. Pt A&Ox3, resting in bed for most of the day, and VSS. Pt requested this RN find him a walker This RN asked pt if he uses a walker at baseline or if he saw physical therapy and they had suggested a walker since he uses a cane at [facility]. Pt states yeah Physical therapy said for me to use a walker . This RN told pt she would double check his chart since she didn't remember there being a note indicating the need for a walker pt then stated I never saw them I just lied, michele why I can't just have a walker .
[2024-06-25] MEDS: polyethylene glycoL 3350 17 GM POWD.PACK PO (17:50)
[2024-06-25 17:52] VITALS: BP 119/87; PULSE 62; RESP 16; TEMP 36.6; O2SAT 96
--- NOTE | 2024-06-25 20:01 | PC.NURSE ---
pt transported to [place] care facility via ems @20:00. report called to facility by previous BE swartz.
[2024-06-25 20:03] VITALS: BP 119/87; PULSE 62; RESP 16; TEMP 36.6; O2SAT 96
== END 2024-06-25 20:03 | disposition skilled nursing facility (03) ==
PROVIDERS: Emergency Provider Emergency Medicine; PCP Internal Medicine
DX: M54.50 Low back pain, unspecified (principal); R26.2 Difficulty in walking, not elsewhere classified; Z79.899 Other long term (current) drug therapy
CPT/HCPCS: 36415; 72100; 80048; 81003; 85025; 96374; 97162; 99284; 99285; J1170

== ENCOUNTER 2024-06-29 09:33 | Outpatient (REF) | payer OTHER, SELFPAY ==
[2024-06-29 09:53] LABS: MANUAL DIFF FLAG NO
[2024-06-29 10:24] LABS: Basophils Percent Auto 0.6 % (0-2); Eosinophils Absolute Auto 0.1 X10*3/uL (0.0-0.4); Hemoglobin 12.5 g/dl (14.0-18.0); Imm Gran Abs Auto 0.01 X10*3/uL (0.00-0.03); Imm Gran Pct Auto 0.2 % (0.0-0.4); Lymphocytes Absolute Auto 1.3 X10*3/uL (1.2-4.9); Lymphocytes Percent Auto 19.2 % (20-40); Mean Corpuscular HGB Conc 32.1 g/dl (31.0-36.0); Mean Corpuscular Hemoglobin 27.7 pg (27.0-33.0); Mean Corpuscular Volume 86.3 fL (80.0-98.0); Mean Platelet Volume 13.5 fL (9.4-12.4); Monocytes Absolute Auto 0.7 X10*3/uL (0.1-1.2); Monocytes Percent Auto 10.7 % (2-11); Neutrophils Absolute Auto 4.5 x10*3/uL (2.0-8.3); Neutrophils Percent Auto 67.3 % (45-73); Platelet Count 154 X10*3/uL (160-400); Red Blood Count 4.52 X10*6/uL (4.60-5.80); Red Cell Distribution Width 14.4 % (11.0-16.0); White Blood Count 6.7 X10*3/uL (4.8-10.8)
[2024-06-29 11:12] LABS: Alanine Aminotransferase 14 U/L (0-40); Albumin Level 4.3 g/dL (3.5-5.0); Alkaline Phosphatase 67 U/L (39-117); Anion Gap 12 (12-20); Aspartate Amino Transferase 20 U/L (5-37); Bilirubin Total 0.4 mg/dL (0.0-1.0); Blood Urea Nitrogen 10 mg/dL (9-16); Calcium 9.7 mg/dL (8.4-10.2); Carbon Dioxide 28 mmol/L (22-29); Chloride 105 mmol/L (96-108); Cholesterol 107 mg/dL (<200); Estimated Glomerular Filt Rate > 60; Glucose Fasting 90 mg/dL (60-99); HDL Cholesterol 48 mg/dL (>40); Iron 38 mcg/dL (45-160); LDL Cholesterol Calculated 50 mg/dL (<100); Percent Iron Saturation 11 % (15-50); Potassium 4.4 mmol/L (3.3-5.1); Sodium 141 mmol/L (135-145); Total Iron Binding Capacity 349 mcg/dL (228-428); Total Protein 7.6 g/dL (6.5-8.0); Triglycerides 48 mg/dL (<150); Unsaturated Iron Binding 311 ug/dL
[2024-06-29 11:19] LABS: PSA,Total (Free>4and<10) 0.17 ng/mL (0.00-4.00)
[2024-06-29 11:28] LABS: Vitamin D 25-OH Total 51.4 ng/mL (>30)
[2024-06-29 11:40] LABS: Folate 16.3 ng/mL (> or = 4.0); Vitamin B12 660 pg/mL (200-900)
[2024-07-05 06:59] LABS: NT-proBNP 37 pg/mL (<125)
== END 2024-06-29 09:34 | disposition home or self-care (01) ==
LOC: HO.LAB 09:33
PROVIDERS: PCP Internal Medicine; Visit Provider Internal Medicine
DX: M47.816 Spondylosis without myelopathy or radiculopathy, lumbar region (principal); E78.5 Hyperlipidemia, unspecified; I42.9 Cardiomyopathy, unspecified; E55.9 Vitamin D deficiency, unspecified; D64.9 Anemia, unspecified; Z12.5 Encounter for screening for malignant neoplasm of prostate; E53.8 Deficiency of other specified B group vitamins
CPT/HCPCS: 36415; 80053; 80061; 82306; 82607; 82746; 83540; 83880; 84153; 85025

== ENCOUNTER 2024-07-30 10:32 | Outpatient (AMB) | payer OTHER, SELFPAY ==
--- NOTE | 2024-07-30 10:34 | MHC.OFFVIS ---
Vital Signs 07/30/24 10:42 Height 5 ft 6 in Weight 189 lb BMI 30.5 BP 134/83 Blood Pressure Location Lt brachial Position Sitting Pulse 61 Pulse Source Pulse Oximeter Pulse Oximetry (%) 97 Oxygen Delivery Method Room Air Intake Visit Reasons: 6 month follow up Intake Note: Pt presents to the office today for a 6 month follow up. Pt states he is still having issues with his bowel movements and constipation. Allergies codeine [CODEINE] Allergy (Intermediate, Verified 07/30/24 10:34) nausea trazodone [TRAZODONE] Allergy (Intermediate, Verified 07/30/24 10:34) SHORTNESS OF BREATH lactose [LACTOSE] Adverse Reaction (Intermediate, Verified 07/30/24 10:34) upset stomach HPI HPI 6 month follow up: Details: 68 yr old m here for f/u RECAP: He has history of microcytic hypochromic Anemia, possible MDS as well He had upper endoscopy and colonoscopy 07/[address] Munoz. EGD showed Henning's esophagus. Colonoscopy showed a couple of tubular adenomas. VCE with AVM repeat colonsocopy 12/2020--APC to AVM and further polyp removed He was not taking iron--but received IV Ferrlecit with Dr Ladd--HGB has been good on last labs around 13 g/dl I referred him to surgery at his request for partial colectomy, surgeon wanted to r/o other causes KUB: hiatal hernia, no obstruction, degen bone changes, moderate amount of stool thru out colon Upper GI series: 11/12-- large para esophageal hernia, possible gastritis, mild cricophranygeal achalasia EGD: 03/2024 large hiatal hernia, path- no barretts INTERIM: no abdominal pain no nausea or vomiting no dysphagia appetite is reasonable, avoids overating occ constipation, helped with laxatives EXAM: GENERAL: The patient is well developed and nontoxic. VITAL SIGNS:see workflow HEENT: Nonicteric sclerae, PERRLA, EOMI. Oropharynx clear. Moist mucous membranes. Conjunctivae appear well perfused. No thyroid mass. CHEST: Chest wall is nontender. HEART: Regular rate and rhythm without murmurs. LUNGS: Clear to auscultation bilaterally. ABDOMEN: Soft, positive bowel sounds,, no organomegaly.no flank tenderness--lap scar noted SKIN: No rash, no excessive bruising, petechiae, or purpura. NEUROLOGIC: Cranial nerves II-XII intact without motor/sensory deficit. Psych--appropriate, A/P: 1/ GREG, multifactorial also possible from bone marrow issues 2/ Large hiatal hernia, he has no symptoms fo chest pain and dysphagia , intermediate cardiac risk PLAN: 1 / cont with high fiber diet, fluids, 2/ cont with PPI 3/ f/u with surgery for hernia if he wants to pursue repair, he has no sx requiring urgent repair, --if doesnt want to take the cardiac risk cont with PPI and diet modification [facility] Medical History Mild depression Lumbar degenerative disc disease Cardiomyopathy Renal calculi Right shoulder pain Lumbar pain Right foot pain Left hip pain Skin lesion Esophageal hernia Hx of hepatitis C Orchalgia Anemia Post-op pain Smoker Insomnia GERD (gastroesophageal reflux disease) Diverticulosis Anxiety Surgical History H/O excision of epidermal inclusion cyst Hx of shoulder surgery History of esophagogastroduodenoscopy (EGD) Hx of colonoscopy History of back surgery History of mandibular surgery History of repair of laceration History of sinus surgery H/O hand surgery Family History Father Prostate cancer, Onset Age: 65 Mother Colon cancer, Onset Age: 76 Brother Prostate cancer Family/Other FH: mental illness Sister Chronic mental illness Social History Household Members: None Housing: Apartment Housing Other:: rents a room Are you a primary rn long term care to a significant other at home: No Do you presently have visiting nurse or other home services: No Alcohol intake: former Patient Tobacco Use Status: Former Tobacco user Cigarettes Per Day: 2 Years Smoked: 15 e-Cigarette/Vaping Use: Never Used Second Hand Smoke Exposure: No service: No Current occupational status: disabled Cognitive needs: No Hearing needs: No Vision needs: Yes Physical Exam Vital Signs: Last Vital Signs Pulse 61 07/30/24 10:42 BP 134/83 07/30/24 10:42 Pulse Ox 97 07/30/24 10:42 Oxygen Delivery Method Room Air 07/30/24 10:42 BMI result Body Mass Index 30.5 Quality Reporting (2019) Adult ([facility] 13801/12/69) Smoking risk assessment performed?: Yes Patient Tobacco Use Status: Former Tobacco user Assessment & Plan Assessment & Plan (1) Paraesophageal hernia: Code(s): K44.9 - Diaphragmatic hernia without obstruction or gangrene Category: Medical Plan: see above Coding Level of Care Code Est Pt Level 3 (90612) Diagnoses Paraesophageal hernia K44.9
[2024-07-30 10:42] VITALS: BP 134/83; PULSE 61; O2SAT 97; BMI 30.5
== END 2024-07-30 11:23 | disposition home or self-care (01) ==
PROVIDERS: PCP Internal Medicine; Visit Provider Internal Medicine Gastroenterology
DX: K44.9 Diaphragmatic hernia without obstruction or gangrene (principal)
CPT/HCPCS: 99213

== ENCOUNTER → 2024-07-30 10:32 | Outpatient (BNVA) | payer OTHER, SELFPAY | PROVIDERS: PCP Internal Medicine; Visit Provider Internal Medicine Gastroenterology | DX: K44.9 Diaphragmatic hernia without obstruction or gangrene (principal) | CPT/HCPCS: 99212 ==

== ENCOUNTER 2024-11-06 13:14 | Outpatient (AMB) | payer OTHER, SELFPAY ==
[2024-11-06 13:46] VITALS: BP 118/80; BMI 30.2
--- NOTE | 2024-11-06 13:46 | MHC.PC.OV ---
Vital Signs 11/06/24 13:46 Height 5 ft 6 in Weight 187 lb BMI 30.2 BP 118/80 Blood Pressure Location Lt brachial Position Sitting Intake Visit Reasons: 5 Month F/U Intake Note: Patient here for a 5 month follow up Floors Buffer Required: No Accompanied by: Self / Same As Patient Allergies codeine [CODEINE] Allergy (Intermediate, Verified 11/06/24 14:24) nausea trazodone [TRAZODONE] Allergy (Intermediate, Verified 11/06/24 14:24) SHORTNESS OF BREATH lactose [LACTOSE] Adverse Reaction (Intermediate, Verified 11/06/24 14:24) upset stomach Medication List - Last Reconciled 11/06/24 by Laurel Dubon MD aspirin (Adult Low Dose Aspirin) 81 mg PO DAILY 90 days back brace As directed baclofen 20 mg PO BEDTIME PRN 30 days cane As directed celecoxib (Celebrex) 100 mg PO BID clonazepam 1 mg PO .every 6 hours PRN 30 days loratadine (Allergy Relief (loratadine)) 10 mg PO DAILY metoprolol succinate ER 25 mg PO DAILY omeprazole 40 mg PO DAILY 90 days rosuvastatin 20 mg PO DAILY sacubitril-valsartan 24-26 mg (Entresto) 1 tab PO BID 90 days Shower Chair As directed sildenafil 100 mg PO DAILY PRN 30 days Tobacco use date assessed: 12/20/23 Fall risk assessment: No Falls in past year Last assessed Fall Risk: 11/06/24 Dental Screening Dental Screen Date: 11/06/24 Did you have a dental visit in the last 12 months?: No Did you have a dental problem in the last 6 months where you did not have access to dental care?: No Was dental information given to patient?: Patient has dentist HPI HPI Comments History of Present Illness Details The patient is a 68-year-old male presenting with chronic hand pain. The pain has persisted since he sustained an injury in 2281-7914 when he broke the tendons away from the bone, resulting in multiple surgeries. Despite these interventions, hand functionality is severely restricted, with loss of use and significant pain, particularly around the second and third fingers, affecting his daily activities such as holding a coffee cup. The patient describes extensive use of the first and second digits due to prior injuries, contributing to current arthritic pain. Additionally, he reports longstanding cardiovascular concerns dating back to 2665-0530, with intermittent chest pain exacerbated by stressors and cigarette smoking, the latter of which he ceased approximately 5-6 years ago. Additionally, the patient has a history of elevated blood pressure and obesity, with current BMI indicative of borderlining on obesity criteria. He also has cardiomyopathy follow by Cardiology and wants a second opinion. Last EF this year was normal with no valvular pathology on Entresto. Has not gain 5 lbs in a week. [facility] Medical History Mild depression Lumbar degenerative disc disease Cardiomyopathy Renal calculi Right shoulder pain Lumbar pain Right foot pain Left hip pain Skin lesion Esophageal hernia Hx of hepatitis C Orchalgia Anemia Post-op pain Smoker Insomnia GERD (gastroesophageal reflux disease) Diverticulosis Anxiety Surgical History H/O excision of epidermal inclusion cyst Hx of shoulder surgery History of esophagogastroduodenoscopy (EGD) Hx of colonoscopy History of back surgery History of mandibular surgery History of repair of laceration History of sinus surgery H/O hand surgery Family History Father Prostate cancer, Onset Age: 65 Mother Colon cancer, Onset Age: 76 Brother Prostate cancer Family/Other FH: mental illness Sister Chronic mental illness Social History Household Members: None Housing: Apartment Housing Other:: rents a room Are you a primary health care sanitary technician to a significant other at home: No Do you presently have visiting nurse or other home services: No Alcohol intake: former Patient Tobacco Use Status: Former Tobacco user Cigarettes Per Day: 2 Years Smoked: 15 Packs per year/per ci.50 e-Cigarette/Vaping Use: Never Used Second Hand Smoke Exposure: No service: No Current occupational status: disabled Cognitive needs: No Hearing needs: No Vision needs: Yes Questionnaire Thrive Questionnaire Date Thrive assessed: 12/20/23 DENIS-7 AMB Questionnaire DENIS-7 Date DENIS - 7 assessed: 12/20/23 Source: Developed by Drs. Adrian Gunderson, Kecia Flowers, Americo Ling and colleagues, with an educational parish from [place]. 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 - Cardiovascular: Reports intermittent chest pain since 0857-8659. Physical exam (Primary Care) Vital Signs: Last Vital Signs BP 118/80 11/06/24 13:46 BMI result Body Mass Index 30.2 Tobacco/Smoking Status: Tobacco use Status Tobacco use date assessed 12/20/23 11/06/24 13:50 Patient Tobacco Use Status Former Tobacco user 11/06/24 13:50 Tobacco use type 08/04/24 10:19 e-Cigarette/Vaping Use Never Used 11/06/24 13:50 Thrive Assessment: Date of Thrive Assessment Date Thrive assessed 12/20/23 11/06/24 13:50 Const Other: General: No confusion Respiratory: Normal respiratory effort, clear to auscultation bilaterally Cardiovascular: No jugular venous distension, regular rate, regular rhythm, S1 normal heart sound present and S2 normal heart sound present Neurology: Patient oriented x3, no focal motor deficits and No confusion Extremities: Full ROM Psychology: anxious Office Procedures Flu Questionnaire Does the patient have a severe egg allergy?: No Immunizations Fluarix Triv [id number] (PF) 45 mcg (15 mcg x 3)/0.5 mL IM syringe Performing Provider: Laurel Dubon MD Performing Location: [facility] Documented (not given) by: PETER Christie on 11/06/24 13:51 Reason Not Given: Patient Refused pneumoc 20-kevan conj-dip cr(PF) 0.5 mL IM syringe Performing Provider: Laurel Dubon MD Performing Location: [facility] Administered by: PETER Christie on 11/06/24 14:49 Dose Route Admin Location Dispensed Lot Number Expiration Date [facility] Dev Ops Engineer 0.5 mL IM Left Deltoid 0.5 mL [id number] 02/19/26 amBXETH/PFIZER VIS Given Date VIS Provided VIS Publication Date 11/06/24 Single Vaccine 21 Eligibility Eligibility Date Funding Source Not [facility] Eligible 11/06/24 Private Coding Level of Care Code Est Pt Level 4 (85490) Complex EM visit Add On G2211 Diagnoses Cardiomyopathy I42.9 Gastroesophageal reflux disease, unspecified whether esophagitis present K21.9 Esophagitis presence: esophagitis presence not specified Anxiety F41.9 Lumbar pain M54.5 Time Spent (min) 21 Assessment & Plan Assessment & Plan (1) Cardiomyopathy: Code(s): I42.9 - Cardiomyopathy, unspecified Category: Medical (2) GERD (gastroesophageal reflux disease): Comment: doing well- Code(s): K21.9 - Gastro-esophageal reflux disease without esophagitis Category: Medical Qualifiers: Esophagitis presence: esophagitis presence not specified Qualified Code(s): K21.9 - Gastro-esophageal reflux disease without esophagitis (3) Anxiety: Code(s): F41.9 - Anxiety disorder, unspecified Category: Medical (4) Lumbar pain: Code(s): M54.5 - Low back pain Category: Medical Plan - Continue current medication regimen including metoprolol, clonazepam, Celebrex, and loratadine. - Recommend referral to a new classified copy control clerk at [facility] for further cardiovascular assessment. - Administered pneumonia vaccination during this visit. - Discussed potential occupational therapy for hand functionality, though declined by the patient. Patient was informed and verbally consented to the use of an ambient scribe for clinic note documentation during this visit. I informed the patient about the importance of cardiovascular assessments and the support a new classified copy control clerk might offer. We reviewed the implications of his hypertension, obesity, and dyslipidemia, emphasizing the importance of weight loss and cholesterol management. I conveyed the potential benefit of occupational therapy for improving hand function, although the patient opted against it. We also discussed the benefits of receiving the pneumonia vaccine, especially given his past smoking history and age, and obtained consent for administration. Lastly, we reviewed the patient's hand condition, exploring the limited options due to extensive past surgical interventions and arthritis. Orders: Orders Pneumococcal 20 Immunization Today Z23 - Encounter for immunization Influenza 6616-8722 Immunization Today Z23 - Encounter for immunization Referrals Open Access Screening Colonoscopy Referral Z08 - Encounter for follow-up examination after completed treatment for malignant neoplasm, Z85.038 - Personal history of other malignant neoplasm of large intestine Cardiology Referral I42.9 - Cardiomyopathy, unspecified Patient Instructions: - Continue taking prescribed medications as directed. - Expect a call from [facility] to schedule a cardiology appointment. - Be vigilant for any new or worsening symptoms, particularly chest pain, and seek immediate care if they occur. - Engage in a weight management plan to address obesity and improve cardiovascular health. - Report any changes in hand pain or functionality.
== END 2024-11-06 14:47 | disposition home or self-care (01) ==
PROVIDERS: PCP Internal Medicine; Visit Provider Internal Medicine
DX: I42.9 Cardiomyopathy, unspecified (principal); K21.9 Gastro-esophageal reflux disease without esophagitis; F41.9 Anxiety disorder, unspecified; M54.50 Low back pain, unspecified; Z23 Encounter for immunization

== ENCOUNTER → 2024-11-06 13:14 | Outpatient (BNVA) | payer OTHER, SELFPAY | PROVIDERS: PCP Internal Medicine; Visit Provider Internal Medicine | DX: I42.9 Cardiomyopathy, unspecified (principal); K21.9 Gastro-esophageal reflux disease without esophagitis; F41.9 Anxiety disorder, unspecified; M54.50 Low back pain, unspecified; Z23 Encounter for immunization | CPT/HCPCS: 90471; 90677; 99212 ==

== ENCOUNTER 2024-11-27 13:23 | Outpatient (AMB) | payer OTHER, SELFPAY ==
--- NOTE | 2024-11-27 13:38 | MHC.OFFVIS ---
Intake Visit Reasons: 1y/PVR Intake Note: Patient is Present for 1Y Follow Up/PVR Urology Medication: Sildenafil, Terazosin Antibiotic Allergies: None Blood Thinners: Aspirin PVR: 12ML'S TODAY'S PVR:0ML'S Director Data Management Required: No Allergies codeine [CODEINE] Allergy (Intermediate, Verified 11/27/24 13:39) nausea trazodone [TRAZODONE] Allergy (Intermediate, Verified 11/27/24 13:39) SHORTNESS OF BREATH lactose [LACTOSE] Adverse Reaction (Intermediate, Verified 11/27/24 13:39) upset stomach HPI Comments Details: Aly is a pleasant male. PCP is unlisted. He seen for the following urologic conditions - lower urinary tract symptoms - erectile dysfunction Yearly follow-up PVR 0 Minimal benefit from prior alpha-ramses Does have intermittent testicular pain - Has mild scarring around epididymis Lives in sober house Has difficulty with urine samples May need letter encouraging oral swab 12 month follow-up PVR Lower urinary tract symptoms Doing well with minimum symptoms PVR today 0 Laser prostatectomy 2017 Cystoscopy 09/12 open bladder neck Labs - 02/08 PSA 0.16 PFSH Medical History Mild depression Lumbar degenerative disc disease Cardiomyopathy Renal calculi Right shoulder pain Lumbar pain Right foot pain Left hip pain Skin lesion Esophageal hernia Hx of hepatitis C Orchalgia Anemia Post-op pain Smoker Insomnia GERD (gastroesophageal reflux disease) Diverticulosis Anxiety Surgical History H/O excision of epidermal inclusion cyst Hx of shoulder surgery History of esophagogastroduodenoscopy (EGD) Hx of colonoscopy History of back surgery History of mandibular surgery History of repair of laceration History of sinus surgery H/O hand surgery Family History Father Prostate cancer, Onset Age: 65 Mother Colon cancer, Onset Age: 76 Brother Prostate cancer Family/Other FH: mental illness Sister Chronic mental illness Social History Household Members: None Housing: Apartment Housing Other:: rents a room Are you a primary certified caregiver to a significant other at home: No Do you presently have visiting nurse or other home services: No Alcohol intake: former Patient Tobacco Use Status: Former Tobacco user Cigarettes Per Day: 2 Years Smoked: 15 e-Cigarette/Vaping Use: Never Used Second Hand Smoke Exposure: No service: No Current occupational status: disabled Cognitive needs: No Hearing needs: No Vision needs: Yes Office Procedures Post Void Residual Post Residual Void Post Void Residual (PVR): 0 [id number] Void Residual by ultrasound Results AMB Urinalysis, Automated UA Leukoctes 0 Adrianna/uL Last Edit by EVERARDO Franks on 11/27/24 13:46 UA Nitrite Negative Last Edit by EVERARDO Franks on 11/27/24 13:46 UA Urobilinogen 0.2 mg/dL Last Edit by EVERARDO Franks on 11/27/24 13:46 UA Protein 0 mg/dL Last Edit by Summer Mojica CCM on 11/27/24 13:46 UA pH 6.0 Last Edit by Summer Mojica CCM on 11/27/24 13:46 UA Blood 0 Yonis/uL Last Edit by EVERARDO Franks on 11/27/24 13:46 UA Specific [place] 1.010 Last Edit by EVERARDO Franks on 11/27/24 13:46 UA Ketone Negative Last Edit by Summer Mojica CCM on 11/27/24 13:46 UA Bilirubin 0 mg/dL Last Edit by Summer Mojica CCM on 11/27/24 13:46 UA Glucose 0 mg/dL Last Edit by Summer Mojica CCM on 11/27/24 13:46 Quality Reporting (2019) Adult ([facility] 138/01/12/69) Smoking risk assessment performed?: Yes Patient Tobacco Use Status: Former Tobacco user Results Reviewed Results Reviewed: Laboratory Last Values Urine pH (Auto) 6.0 11/27/24 13:46 Specific [place] (Auto) 1.010 11/27/24 13:46 Urine Protein (Auto) 0 mg/dL 11/27/24 13:46 Glucose (UA)(Auto) 0 mg/dL 11/27/24 13:46 Urine Ketones (Auto) Negative 11/27/24 13:46 Urine Blood (Auto) 0 Yonis/uL 11/27/24 13:46 Urine Nitrite (Auto) Negative 11/27/24 13:46 Urine Bilirubin (Auto) 0 mg/dL 11/27/24 13:46 Urine Urobilinogen (Auto) 0.2 mg/dL 11/27/24 13:46 Leukocyte Esterase (Auto) 0 Adrianna/uL 11/27/24 13:46 Assessment & Plan Assessment & Plan Orders: Orders AMB Urinalysis Automated Today Z13.9 - Encounter for screening, unspecified Coding CPT Codes Post Residual Void - PVR CPT Code: 37199-Tmft Void Residual by ultrasound ([id number])
== END 2024-11-27 14:21 | disposition home or self-care (01) ==
PROVIDERS: PCP Internal Medicine; Visit Provider Urology
DX: Z13.9 Encounter for screening, unspecified (principal)

== ENCOUNTER → 2024-11-27 13:23 | Outpatient (BNVA) | payer OTHER, SELFPAY | PROVIDERS: PCP Internal Medicine; Visit Provider Urology | DX: N50.811 Right testicular pain (principal); N50.812 Left testicular pain; N52.01 Erectile dysfunction due to arterial insufficiency; N32.0 Bladder-neck obstruction | CPT/HCPCS: 51798; 81003; 99212 ==